=== PATIENT | female | born 1930 | race Asian ===

== ENCOUNTER 2016-12-09 12:29 | Inpatient (IN) | payer MEDICARE, OTHER ==
[~2016-12-09] VITALS: Ht 165.1 cm; Wt 63.6 kg
[~2016-12-09 12:29] MED LIST: ASPI81TA3 PO; AZIT250T4 PO; HYDR473S47 PO; PANT40TA4 PO; SYMB80120 INHALATION
[2016-12-09] MEDS ORDERED: ALBUTEROL 0.5% (NEB) 2.5 MG/0.5 ML AMP NEB STA (13:39)
[2016-12-09] MEDS ORDERED: IPRATROPIUM (NEB) 0.5 MG/2.5 ML AMP NEB STA (13:39)
[2016-12-09] MEDS ORDERED: METHYLPREDNISOLONE 125 MG INJ IV STA (13:39)
[2016-12-09] MEDS ORDERED: PANT20TA3 PO (14:17)
[2016-12-09] MEDS ORDERED: GUAI-637 PO (14:18)
[2016-12-09] MEDS ORDERED: ALBU18HF INHALATION (14:18)
[2016-12-09] MEDS ORDERED: ADV25050 INHALATION (14:18)
[2016-12-09] MEDS ORDERED: CLOT10TR6 MM (14:18)
--- NOTE | 2016-12-09 14:28 | RADRPT ---
PROCEDURE: XR Chest. CLINICAL INDICATION: Asthma TECHNIQUE: AP Portable chest. COMPARISON: 12/15/2015 chest x-ray and chest CT 12/15/2015 FINDINGS: The soft tissues and bones are remarkable for thoracic spondylosis and bilateral acromioclavicular o steoarthropathy. Bilateral upper lobe volume loss is present with chronic right upper lobe intersti tial disease and bronchiectasis previously described. Right middle lobe atelectasis or consolidatio n is present. Lesser degree of involvement in the left upper and lower lobes are noted. The mediast inum and heart are remarkable for mild cardiomegaly and atherosclerotic vascular disease. No pneumo thorax or pleural effusions are present. IMPRESSION: 1. Acute right middle lobe discoid atelectasis or infiltrate superimposed on chronic interstitial d isease as described above. 2. Mild cardiomegaly and atherosclerotic vascular disease 3. 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 RPTAT: HDC .Leah Lundberg MD, MD Date Time Electronically viewed and signed by .Leah Lundberg MD, on 12/09/2016 14:28 .C/
[2016-12-09] MEDS ORDERED: CEFTRIAXONE 1 GM/50 ML (PMX) 50 ML IVPB STA (14:34)
[2016-12-09] MEDS ORDERED: AZITHROMYCIN 250 MG TAB PO STA (14:34)
[2016-12-09 15:04] LABS: BASOPHILS % 0.6 % (0.0-2.0); EOSINOPHILS # 0.3 10^3/ul (0.0-0.5); EOSINOPHILS % 5.2 % (0.0-7.0); HEMATOCRIT 42.1 % (37.0-47.0); HEMOGLOBIN 14.1 g/dl (12.0-16.0); LYMPHOCYTES # 2.3 10^3/ul (0.8-2.9); LYMPHOCYTES % 38.2 % (15.0-51.0); MEAN CORPUSCULAR HEMOGLOBIN 30.3 pg (29.0-33.0); MEAN CORPUSCULAR HGB CONC 33.4 g/dl (32.0-37.0); MEAN CORPUSCULAR VOLUME 90.8 fl (82.0-101.0); MEAN PLATELET VOLUME 6.9 fl (7.4-10.4); MONOCYTE # 0.5 10^3/ul (0.3-0.9); MONOCYTES % 8.7 % (0.0-11.0); NEUTROPHIL # 2.8 10^3/ul (1.6-7.5); NEUTROPHILS % 47.3 % (39.0-77.0); PLATELET COUNT 406 10^3/UL (140-440); RED BLOOD COUNT 4.64 10^6/ul (4.20-5.40); UNCORRECTED WBC 5.9 10^3/ul (4.8-10.8); WHITE BLOOD COUNT 5.9 10^3/ul (4.8-10.8)
[2016-12-09 15:05] LABS: CONDITION 1
[2016-12-09 15:16] LABS: POTASSIUM 3.3 mmol/L (3.5-5.1)
[2016-12-09 15:19] LABS: CREATININE 0.89 mg/dl (0.44-1.00)
[2016-12-09 15:20] LABS: CALCIUM 9.1 mg/dl (8.4-10.2)
--- NOTE | 2016-12-09 15:39 | ERA ---
ER Documentation Chief Complaint Date/Time DATE: 12/09/16 TIME: 15:37 Chief Complaint cough, sob, box HPI This is an 86-year-old female who has had a cough for nearly a week. The cough is getting worse over the past 2 or 3 days. Patient is coughing up some occasional mild productive sputum and having no fever no shortness of breath no dyspnea on exertion no nausea vomiting no sore throat but does have been a runny nose no orthopnea. The daughter brought her here because of concern she could have pneumonia ROS All systems reviewed and are negative except as per history of present illness. Medications Home Meds Active Scripts Budesonide-Formoterol Fumarate* (Symbicort*) 80-4.5 Inha, 2 PUFFS INHALATION BID , #1 EACH Prov:ALTAF CANTU MD 12/15/15 Azithromycin* (Azithromycin*) 250 Mg Tablet, 250 MG PO DAILY, #4 TAB Prov:ALTAF CANTU MD 12/15/15 Hydrocodone/Homatropine Mbr* (Hycodan* Liq) 5 Ml Syrup, 5 ML PO q6h Y for COUGH , #60 ML Prov:ALTAF CANTU MD 12/15/15 Reported Medications Guaifenesin* (Robitussin*) 100 Mg/5 Ml Syrup, 400 MG PO Q6H Y for COUGH, ML 12/09/16 Clotrimazole* (Clotrimazole*) 10 Mg Dawna, 10 MG MM 5 TIMES DAILY, TAB 12/09/16 Salmeterol Xinaf/Fluticasone* (Advair*) 250-50 Diskus Inhaler, 1 INH INHALATION BID, #1 INHALER 12/09/16 Albuterol Sulfate* (Ventolin HFA*) 18 Gm Hfa.aer.ad, 2 PUFF INHALATION Q6H, #1 INHALER 12/09/16 Pantoprazole* (Pantoprazole*) 20 Mg Tablet.dr, 20 MG PO DAILY, TAB 12/09/16 Aspirin* (Aspirin* Chew) 81 Mg Tab.chew, 81 MG PO DAILY, TAB.CHEW 12/15/15 Discontinued Reported Medications Pantoprazole* (Pantoprazole*) 40 Mg Tablet.dr, 40 MG PO DAILY, TAB 12/15/15 Allergies Allergies: Coded Allergies: Sulfa (Sulfonamide Antibiotics) (Verified Allergy, Severe, RASH, 10/30/14) PMhx/Soc History of Surgery: Yes (eye surgery) Anesthesia Reaction: No Hx 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 Disorder: No Hx Respiratory Disorders: Yes (bronchitis, ASTHMA) Hx Cardiac Disorders: No Hx Psychiatric Problems: No Hx Miscellaneous Medical Probl: Yes (GERD) Hx Alcohol Use: No Hx Substance Use: No Hx Tobacco Use: No Smoking Status: Never smoker FmHx Family History: No coronary disease Physical Exam Vitals Vital Signs Date Time Temp Pulse Resp B/P Pulse Ox O2 Delivery O2 Flow Rate FiO2 12/09/16 15:12 98.6 98 20 138/77 91 Room Air 12/09/16 15:02 Nasal Cannula 12/09/16 13:58 80 17 97 21 12/09/16 12:36 98.4 76 20 144/78 97 Physical Exam Const: Well-developed, well-nourished Head: Atraumatic, normocephalic Eyes: Normal Conjunctiva, PERRLA, EOMI, normal sclera, no nystagmus ENT: Normal External Ears, Nose and Mouth, moist mucus membranes. Neck: Full range of motion. No meningismus, no lymphadenopathy. Resp: Diffuse mild scattered rhonchi no increased work of breathing s Cardio: Regular rate and rhythm, no murmurs, S1 S2 present Abd: Soft, non tender x 4, non distended. Normal bowel sounds, no guarding or rebound, no pulsitile abdominal masses or bruits Skin: No petechiae or rashes, no ecchymosis , no maculopapular rash Back: No midline or flank tenderness Ext: No cyanosis, or edema, FROM x 4, normal inspection, neurovascularly intact x 4 Neur: Awake and alert, STR 5/5 x 4, sensation intact x 4, no focal findings, cerebellum intact Psych: Normal Mood and Affect Result Diagram: 12/09/16 1450 12/09/16 1450 Results 24 hrs Laboratory Tests Test 12/09/16 14:50 Anion Gap 15 Basophils # 0.010^3/ul Basophils % 0.6% Blood Morphology Comment Blood Urea Nitrogen 11mg/dl Calcium Level 9.1mg/dl Carbon Dioxide Level 26mmol/L Chloride Level 106mmol/L Creatinine 0.89mg/dl Eosinophils # 0.310^3/ul Eosinophils % 5.2% Glucose Level 125mg/dl Hematocrit 42.1% Hemoglobin 14.1g/dl Lymphocytes # 2.310^3/ul Lymphocytes % 38.2% Mean Corpuscular Hemoglobin 30.3pg Mean Corpuscular Hemoglobin Concent 33.4g/dl Mean Corpuscular Volume 90.8fl Mean Platelet Volume 6.9fl Monocytes # 0.510^3/ul Monocytes % 8.7% Neutrophils # 2.810^3/ul Neutrophils % 47.3% Nucleated Red Blood Cells # 0.010^3/ul Nucleated Red Blood Cells % 0.0/100WBC Platelet Count 90638^3/UL Potassium Level 3.3mmol/L Red Blood Count 4.6410^6/ul Red Cell Distribution Width 14.0% Sodium Level 144mmol/L White Blood Count 5.910^3/ul Current Medications Medications (Trade) Dose Ordered Sig/Brigido Route PRN Reason Start Time Stop Time Status Last Admin Dose Admin Albuterol (Proventil 0.5% (Neb)) 7.5 mg ONCE STAT NEB 12/09/16 13:39 12/09/16 13:41 DC 12/09/16 14:14 Ipratropium [place] (Atrovent 0.02% (Neb)) 1.5 mg ONCE STAT NEB 12/09/16 13:39 12/09/16 13:41 DC 12/09/16 14:13 Methylprednisolone Sodium Succinate (Solu-Medrol) 125 mg ONCE STAT IV 12/09/16 13:39 12/09/16 13:41 DC 12/09/16 14:46 Azithromycin 500 mg 500 mg ONCE STAT PO 12/09/16 14:34 12/09/16 14:39 DC 12/09/16 15:10 Ceftriaxone Sodium (Rocephin) 50 ml @ 100 mls/hr ONCE STAT IVPB 12/09/16 14:34 12/09/16 15:03 DC 12/09/16 15:11 Procedures/MDM PROCEDURE: XR Chest. CLINICAL INDICATION: Asthma TECHNIQUE: AP Portable chest. COMPARISON: 12/15/2015 chest x-ray and chest CT 12/15/2015 FINDINGS: The soft tissues and bones are remarkable for thoracic spondylosis and bilateral acromioclavicular osteoarthropathy. Bilateral upper lobe volume loss is present with chronic right upper lobe interstitial disease and bronchiectasis previously described. Right middle lobe atelectasis or consolidation is present. Lesser degree of involvement in the left upper and lower lobes are noted. The mediastinum and heart are remarkable for mild cardiomegaly and atherosclerotic vascular disease. No pneumothorax or pleural effusions are present. IMPRESSION: 1. Acute right middle lobe discoid atelectasis or infiltrate superimposed on chronic interstitial disease as described above. 2. Mild cardiomegaly and atherosclerotic vascular disease 3. 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 RPTAT: HDC .Leah Lundberg MD, MD Date Time Electronically viewed and signed by .Leah Lundberg MD, MD on 12/09/2016 14: 28 .C/ CC: JAN TATE DO Patient received some nebulizer treatments and Solu-Medrol. She also received intravenous antibiotic therapy. We will admit the patient for right pneumonia. Departure Diagnosis: Primary Impression: Right middle lobe pneumonia Qualified Code: J18.9 - Pneumonia of right middle lobe due to infectious organism Condition: Stable JAN TATE DO Dec 09, 2016 15:39
[2016-12-09] MEDS ORDERED: SOD CHLORIDE 0.9% 1,000 ML IV SCH (15:40)
[2016-12-09] MEDS ORDERED: ONDANSETRON 4 MG INJ IV PRN ×2 (16:00)
[2016-12-09] MEDS ORDERED: ACETAMINOPHEN 325 MG TAB PO PRN (16:00)
[2016-12-09] MEDS ORDERED: ALBUTEROL/IPRATROPIUM (NEB) 3 ML AMP HHN PRN (16:00)
[2016-12-09 16:07] LABS: ADD UMIC YES; URINE BILIRUBIN (Dip) NEGATIVE (NEGATIVE); URINE BLOOD (Dip) TRACE (NEGATIVE); URINE COLOR LT. YELLOW (YELLOW); URINE GLUCOSE (Dip) NEGATIVE (NEGATIVE); URINE KETONES (Dip) NEGATIVE (NEGATIVE); URINE LEUKOCYTE ESTERASE (Dip) NEGATIVE (NEGATIVE); URINE NITRITE (Dip) NEGATIVE (NEGATIVE); URINE TOTAL PROTEIN (Dip) NEGATIVE (NEGATIVE); URINE UROBILINOGEN (Dip) 0.2 E.U./dL (0.1-1.0)
[2016-12-09 16:21] LABS: SQUAMOUS EPITHELIAL CELL,UR RARE; URINE RBCS 0-2 /HPF (0)
[2016-12-09] MEDS: LEVOFLOXACIN 500MG/D5W (PMX) 100 ML IVPB SCH (16:40)
[2016-12-09 16:45] VITALS: TEMP 99
[2016-12-09] MEDS: ALBUTEROL/IPRATROPIUM (NEB) 3 ML AMP HHN SCH ×2 (17:31→21:23)
[2016-12-09 20:00] VITALS: BP 134/85; PULSE 86; RESP 16
[2016-12-09] MEDS: POTASSIUM CHLORIDE (SR) 20 MEQ TAB PO SCH ×2 (20:00→23:01)
[2016-12-09] MEDS: SALMETEROL/FLUTICASONE 250/50 INHA INH SCH (22:59)
[2016-12-09 23:11] LABS: CREATINE KINASE 503 IU/L (23-200)
[2016-12-09 23:20] LABS: CK-MB 2.99 ng/ml (0.0-2.4)
[2016-12-09 23:24] LABS: TROPONIN-I < 0.012 ng/ml (0.00-0.12)
[2016-12-10] MEDS: ALBUTEROL/IPRATROPIUM (NEB) 3 ML AMP HHN SCH ×6 (00:26→20:45)
[2016-12-10 05:46] LABS: BASOPHILS % 0.2 % (0.0-2.0); EOSINOPHILS % 0.2 % (0.0-7.0); HEMATOCRIT 38.7 % (37.0-47.0); HEMOGLOBIN 13.1 g/dl (12.0-16.0); LYMPHOCYTES # 0.6 10^3/ul (0.8-2.9); LYMPHOCYTES % 14.9 % (15.0-51.0); MEAN CORPUSCULAR HEMOGLOBIN 30.9 pg (29.0-33.0); MEAN CORPUSCULAR VOLUME 90.9 fl (82.0-101.0); MEAN PLATELET VOLUME 6.9 fl (7.4-10.4); MONOCYTE # 0.1 10^3/ul (0.3-0.9); MONOCYTES % 2.3 % (0.0-11.0); NEUTROPHIL # 3.3 10^3/ul (1.6-7.5); NEUTROPHILS % 82.4 % (39.0-77.0); PLATELET COUNT 397 10^3/UL (140-440); RED BLOOD COUNT 4.25 10^6/ul (4.20-5.40); RED CELL DISTRIBUTION WIDTH 13.9 % (11.5-14.5)
[2016-12-10 05:54] LABS: CONDITION 1
[2016-12-10 06:05] LABS: ALBUMIN 3.7 g/dl (3.3-4.9); POTASSIUM 4.7 mmol/L (3.5-5.1)
[2016-12-10 06:08] LABS: CREATININE 0.68 mg/dl (0.44-1.00); PHOSPHORUS 3.3 mg/dl (2.5-4.9)
[2016-12-10] MEDS: PANTOPRAZOLE SODIUM 20 MG TABEC PO SCH (06:08)
[2016-12-10 06:09] LABS: CALCIUM 8.7 mg/dl (8.4-10.2); CHOL/HDL RATIO 4.4 RATIO; MAGNESIUM 2.1 mg/dl (1.7-2.5)
[2016-12-10 06:24] LABS: CK-MB 2.87 ng/ml (0.0-2.4)
[2016-12-10 06:28] LABS: CREATINE KINASE 503 IU/L (23-200)
[2016-12-10 06:41] LABS: TROPONIN-I < 0.010 ng/ml (0.00-0.12)
[2016-12-10 07:39] VITALS: BP 132/71; RESP 20
[2016-12-10] MEDS: SALMETEROL/FLUTICASONE 250/50 INHA INH SCH ×2 (10:27→21:17)
[2016-12-10] MEDS: GUAIFENESIN 20 MG/ML 5ML CUP PO PRN (10:28)
[2016-12-10] MEDS: ASPIRIN 81 MG TAB PO SCH (10:28)
[2016-12-10] MEDS: HYDROCODONE/HOMATROPINE 5ML CUP PO PRN ×2 (12:39→21:12)
--- NOTE | 2016-12-10 12:45 | HP ---
Date/Time of Note Date/Time of Note DATE: 12/10/16 TIME: 12:32 Assessment/Plan VTE Prophylaxis VTE Prophylaxis Intervention: LMWH Lines/Catheters IV Catheter Type (from Nrs): Peripheral IV Urinary Cath still in place: No Assessment/Plan Assessment/Plan 1. Community acquired pneumonia, likely gram positive bacterial, on levaquin, test to r/o influenza 2. COPD, acute exacerbation, neb, steroid, levaquin 3. 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 No fever or chills. ROS Constitutional: no complaints, No chills, No diaphoresis, No disoriented, No fatigue, No febrile, No improved, No nausea, No poor po, No weight change Eyes: no complaints, No discharge, No pain, No redness, No visual change ENT: no complaints, No bleeding, No congestion, No discharge, No dysphagia, No pain, No sore throat Respiratory: cough, shortness of breath, wheezing, No pleuritic pain, No sputum Cardiovascular: No chest pain, No edema, No lightheadedness, No orthopenea, No palpitations, No paroxysmal nocturnal dyspnea Gastrointestinal: no complaints, No blood, No constipation, No decreased appetite, No diarrhea, No flatus, No nausea, No pain, No passing stool, No vomiting Genitourinary: No bleeding, No discharge, No dysuria, No flank pain, No hematuria Musculoskeletal: No back pain, No bone/joint pain, No neck pain, No restricted range of motion, No swelling Skin: No bruising, No erythema, No laceration, No pruritis, No rash, No skin lesions Neurologic: No confusion, No dizziness, No focal-weakness, No headache, No seizure, No syncope Endocrine: No dry skin, No polydypsia, No polyuria, No temp intolerance, No weight change Lymphatic: No adenopathy, No lymphadema, No tender nodes Psychological: No anxiety, No confusion, No depression, No suicidal PMH/Family/Social Past Medical History Medical History: other (COPD) Past Surgical History Past Surgical Hx: no surgical history Family History Significant Family History: no pertinent family hx Social History Alcohol Use: none Smoking Status: Never smoker Drug Use: none Exam/Review of Systems Vital Signs Vitals Vital Signs Date Time Temp Pulse Resp B/P Pulse Ox O2 Delivery O2 Flow Rate FiO2 12/10/16 10:22 99 20 99 21 12/10/16 07:39 97.7 132/71 12/09/16 20:00 Room Air Intake and Output 12/09/16 12/09/16 12/10/16 15:00 23:00 07:00 Intake Total 700 ml Balance 700 ml Exam Constitutional: alert, oriented, well developed Psych: nl mood/affect, no complaints Head: atraumatic, normocephalic Eyes: EOMI, PERRL, nl conjunctiva, nl lids, nl sclera ENMT: mucosa pink and moist, nl external ears & nose, nl lips & teeth, nl nasal mucosa & septum Neck: non-tender, supple Respiratory: clear to auscultation, congested cough, normal air movement Cardiovascular: nl pulses, regular rate and rhythm Gastrointestinal: nl liver, spleen, non-tender, soft Musculoskeletal: nl extremities to inspection, nl gait and stance Extremities: normal pulses, No calf tenderness, No clubbing, No cyanosis, No edema, No palpable cord, No pitting pedal edema, No tenderness 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: 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 SWEEPER 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-XII 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, nl mental status, nl speech, nl strength Skin: nl turgor, rash or lesions Lymph: nl lymph nodes Labs Result Diagram: 12/10/16 0040 12/10/16 0440 Medications Medications Current Medications Levofloxacin/ Dextrose (Levaquin 500mg/ D5W 100 ml (Pmx)) 100 ml @ 100 mls/hr Q48H IVPB ; Start 12/09/16 at 16:40 Ondansetron HCl (Zofran Inj) 4 mg Q4H PRN IV NAUSEA AND/OR VOMITING; Start at 16:00 Aspirin (Aspirin) 81 mg DAILY PO Last administered on 12/10/16 10:28; Admin Dose 81 MG; Start 12/10/16 at 09:00 Guaifenesin (Robitussin Liquid Cup) 400 mg Q6H PRN PO COUGH Last administered on 12/10/16 10:28; Admin Dose 400 MG; Start 12/09/16 at 16:00 Hydrocodone Bit/ Homatropine Methylb (Hycodan Liquid) 5 ml q6h PRN PO COUGH; Start 12/09/16 at 16:00 Pantoprazole Sodium (Protonix) 20 mg DAILY@06 PO Last administered on 06:08; Admin Dose 20 MG; Start 12/10/16 at 06:00 Salmeterol Xinafoate/ Fluticasone (Advair 250/50 Diskus) 1 inh BID INH Last administered on 12/10/16 10:27; Admin Dose 1 INH; Start 12/09/16 at 21:00 MUNIR RIZO MD Dec 10, 2016 12:43
[2016-12-10] MEDS: METHYLPREDNISOLONE 40 MG INJ IV SCH ×2 (14:05→21:06)
[2016-12-10] MEDS: ENOXAPARIN 40 MG/0.4 ML SYG SC SCH (14:07)
--- NOTE | 2016-12-10 18:10 | RADRPT ---
Echocardiogram Report Patient Name: KARMEN AMBROSE Gender: Female Date: 1930 Study Date: 10-Dec-2016 General Pediatrician: Ana Rosa Kim [facility] Location: 627 Ref. Physician: ANUJA LUNA Quality: Good Procedures: Transthoracic echocardiogram with complete 2D, M-Mode, and doppler examination. Indications: Chest Pain. 2D/M Mode Doppler Measurement Value Normal Ranges Measurement Value Normal Ranges LVIDd 2D 4.3 3.5 - 5.6 cm AV Peak Jose M 1.5 m/sec LVIDs 2D 2.0 2.1 - 4.1 cm AV Peak PG 9.5 mmHg LVPWd 2D 0.9 0.6 - 1.1 cm LVOT Peak Jose M 1.1 m/sec IVSd 2D 1.0 0.6 - 1.1 cm LVOT Peak PG 4.9 mmHg AoR Diam 2D 2.9 2.0 - 3.7 cm MV E Peak Jose M 1.0 m/sec EDV 2D 80.9 cm3 MV A Peak Jose M 1.1 m/sec ESV 2D 7.8 cm3 MV E/A 0.9 LA Dimen 2D 2.6 2.3 - 4.0 cm MV Decel Time 135 msec MV Decel [place] 7 MV E/A 0.9 TR Peak Jose M 2.7 m/sec TR Peak PG 28.2 mmHg RVSP 31.0 mmHg Findings Left Ventricle: Normal left ventricular systolic function. Normal left ventricular cavity size. Normal left ventricular wall thickness. Ejection fraction is visually estimated at 60 %. Tissue Doppler/Mitral Doppler indices are consistent with impaired relaxation (Stage I diastolic dysfunction). Right Ventricle: Normal right ventricular size. Normal right ventricular systolic function. Left Atrium: The left atrium is normal in size. Right Atrium: The right atrium is normal in size. Mitral Valve: Normal appearance and function of the mitral valve with trace physiologic regurgitation. Aortic Valve: Normal appearance of the aortic valve. No significant aortic stenosis or insufficiency. Tricuspid Valve: Normal appearance of the tricuspid valve. Estimated peak PA systolic pressure 31 mmHg. There is mild tricuspid regurgitation. Pericardium: Normal pericardium with no significant pericardial effusion. Aorta: Normal aortic root. IVC: Normal size and normal respiratory collapse consistent with normal right atrial pressure. Conclusions 1.Normal left ventricular systolic function. Normal left ventricular cavity size. Normal left ventricular wall thickness. Ejection fraction is visually estimated at 60 %. Tissue Doppler/Mitral Doppler indices are consistent with impaired relaxation (Stage I diastolic dysfunction). 2.Normal appearance and function of the mitral valve with trace physiologic regurgitation. 3.Normal appearance of the tricuspid valve. Estimated peak PA systolic pressure 31 mmHg. There is mild tricuspid regurgitation. Electronically Signed By: Nirmal Muir 10-Dec-2016 18:09:27 -0800 Patient Name: KARMEN AMBROSE Study Date: 10-Dec-2016 [id number]
[2016-12-10 19:54] VITALS: BP 127/62; RESP 18
[2016-12-11] MEDS: ALBUTEROL/IPRATROPIUM (NEB) 3 ML AMP HHN SCH ×4 (00:29→12:12)
[2016-12-11] MEDS: METHYLPREDNISOLONE 40 MG INJ IV SCH ×3 (05:56→21:47)
[2016-12-11] MEDS: PANTOPRAZOLE SODIUM 20 MG TABEC PO SCH (06:25)
[2016-12-11 06:29] LABS: POTASSIUM 4.6 mmol/L (3.5-5.1)
[2016-12-11 06:31] LABS: CREATININE 0.73 mg/dl (0.44-1.00)
[2016-12-11 06:33] LABS: CALCIUM 9.2 mg/dl (8.4-10.2)
[2016-12-11 06:46] LABS: ALBUMIN 3.9 g/dl (3.3-4.9); POTASSIUM 4.7 mmol/L (3.5-5.1)
[2016-12-11 06:49] LABS: CREATININE 0.72 mg/dl (0.44-1.00)
[2016-12-11 06:50] LABS: CALCIUM 9.4 mg/dl (8.4-10.2)
[2016-12-11 07:08] LABS: BASOPHILS % 0.1 % (0.0-2.0); EOSINOPHILS % 0.1 % (0.0-7.0); HEMATOCRIT 39.6 % (37.0-47.0); HEMOGLOBIN 13.3 g/dl (12.0-16.0); LYMPHOCYTES # 0.7 10^3/ul (0.8-2.9); LYMPHOCYTES % 7.7 % (15.0-51.0); MEAN CORPUSCULAR HEMOGLOBIN 30.6 pg (29.0-33.0); MEAN CORPUSCULAR HGB CONC 33.6 g/dl (32.0-37.0); MEAN CORPUSCULAR VOLUME 91.2 fl (82.0-101.0); MEAN PLATELET VOLUME 7.1 fl (7.4-10.4); MONOCYTE # 0.1 10^3/ul (0.3-0.9); MONOCYTES % 1.3 % (0.0-11.0); NEUTROPHIL # 8.5 10^3/ul (1.6-7.5); NEUTROPHILS % 90.8 % (39.0-77.0); PLATELET COUNT 399 10^3/UL (140-440); RED BLOOD COUNT 4.34 10^6/ul (4.20-5.40); RED CELL DISTRIBUTION WIDTH 14.1 % (11.5-14.5); UNCORRECTED WBC 9.4 10^3/ul (4.8-10.8); WHITE BLOOD COUNT 9.4 10^3/ul (4.8-10.8)
[2016-12-11 07:19] LABS: CONDITION 1; LH ANALYZER COMMENTS 1
[2016-12-11 07:34] VITALS: BP 157/80; RESP 22
[2016-12-11] MEDS: ASPIRIN 81 MG TAB PO SCH (09:04)
[2016-12-11] MEDS: SALMETEROL/FLUTICASONE 250/50 INHA INH SCH ×2 (09:04→21:48)
[2016-12-11] MEDS: ENOXAPARIN 40 MG/0.4 ML SYG SC SCH (09:37)
[2016-12-11] MEDS ORDERED: ACETAMINOPHEN 325 MG TAB PO PRN (12:00)
--- NOTE | 2016-12-11 13:25 | PN ---
Date/Time of Note Date/Time of Note DATE: 12/11/16 TIME: 13:23 Assessment/Plan VTE Prophylaxis VTE Prophylaxis Intervention: LMWH Lines/Catheters IV Catheter Type (from Nrs): Saline Lock Urinary Cath still in place: No Assessment/Plan Assessment/Plan 1. Community acquired pneumonia, likely gram positive bacterial, on levaquin, improving 2. COPD, acute exacerbation, neb, steroid, levaquin, decrease steroid 3. GERD, protonix Subjective 24 Hr Interval Summary Free Text/Dictation feels much better with less shortness of breath, still cough but less Exam/Review of Systems Vital Signs Vitals Vital Signs Date Time Temp Pulse Resp B/P Pulse Ox O2 Delivery O2 Flow Rate FiO2 12/11/16 12:12 86 18 96 21 12/11/16 07:34 98.1 157/80 12/09/16 20:00 Room Air Intake and Output 12/10/16 12/10/16 12/11/16 15:00 23:00 07:00 Intake Total 1320 ml 480 ml Balance 1320 ml 480 ml Exam Constitutional: alert, oriented, well developed Psych: nl mood/affect, no complaints Head: atraumatic, normocephalic Eyes: EOMI, PERRL, nl conjunctiva, nl lids, nl sclera ENMT: mucosa pink and moist, nl external ears & nose, nl lips & teeth, nl nasal mucosa & septum Neck: non-tender, supple Respiratory: crackles/rales (on right back) Cardiovascular: nl pulses, regular rate and rhythm Gastrointestinal: nl liver, spleen, non-tender, soft, No ascites, No bowel sounds, No distended, No firm, No hepatomegaly, No mass , No rebound or guarding, No splenomegaly, No surgical scars, No tender Musculoskeletal: nl extremities to inspection Extremities: normal pulses, No calf tenderness, No clubbing, No cyanosis, No edema, No palpable cord, No pitting pedal edema, No tenderness 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: QUILT MAKER II-XII intact, nl mental status, nl speech, nl strength Skin: nl turgor, rash or lesions Lymph: nl lymph nodes Results Result Diagram: 12/11/16 0550 12/11/16 0550 Results 24 hrs Laboratory Tests Test 12/11/16 05:50 Albumin 3.9 Anion Gap 19 H Basophils # 0.0 Basophils % 0.1 Blood Morphology Comment Blood Urea Nitrogen 18 Calcium Level 9.2 Carbon Dioxide Level 24 Chloride Level 105 Creatinine 0.73 Eosinophils # 0.0 Eosinophils % 0.1 Glucose Level 138 Hematocrit 39.6 Hemoglobin 13.3 Lymphocytes # 0.7 L Lymphocytes % 7.7 L Mean Corpuscular Hemoglobin 30.6 Mean Corpuscular Hemoglobin Concent 33.6 Mean Corpuscular Volume 91.2 Mean Platelet Volume 7.1 L Monocytes # 0.1 L Monocytes % 1.3 Neutrophils # 8.5 H Neutrophils % 90.8 H Nucleated Red Blood Cells # 0.0 Nucleated Red Blood Cells % 0.0 Phosphorus Level 4.0 Platelet Count 399 Potassium Level 4.6 Red Blood Count 4.34 Red Cell Distribution Width 14.1 Sodium Level 143 White Blood Count 9.4 # Medications Medications Current Medications Levofloxacin/ Dextrose (Levaquin 500mg/ D5W 100 ml (Pmx)) 100 ml @ 100 mls/hr Q48H IVPB ; Start 12/09/16 at 16:40 Ondansetron HCl (Zofran Inj) 4 mg Q4H PRN IV NAUSEA AND/OR VOMITING; Start at 16:00 Aspirin (Aspirin) 81 mg DAILY PO Last administered on 12/11/16 09:04; Admin Dose 81 MG; Start 12/10/16 at 09:00 Guaifenesin (Robitussin Liquid Cup) 400 mg Q6H PRN PO COUGH Last administered on 12/10/16 10:28; Admin Dose 400 MG; Start 12/09/16 at 16:00 Hydrocodone Bit/ Homatropine Methylb (Hycodan Liquid) 5 ml q6h PRN PO COUGH Last administered on 12/10/16 21:12; Admin Dose 5 ML; Start 12/09/16 at 16:00 Pantoprazole Sodium (Protonix) 20 mg DAILY@06 PO Last administered on 06:25; Admin Dose 20 MG; Start 12/10/16 at 06:00 Salmeterol Xinafoate/ Fluticasone (Advair 250/50 Diskus) 1 inh BID INH Last administered on 12/11/16 09:04; Admin Dose 1 INH; Start 12/09/16 at 21:00 Enoxaparin Sodium (Lovenox) 40 mg DAILY SC Last administered on 12/11/16 09:37 ; Admin Dose 40 MG; Start 12/10/16 at 13:00 Methylprednisolone Sodium Succinate (Solu-Medrol) 40 mg Q8 IV Last administered on 12/11/16 05:56; Admin Dose 40 MG; Start 12/10/16 at 14:00 Acetaminophen (Tylenol Tab) 650 mg Q6H PRN PO PAIN AND OR ELEVATED TEMP Last administered on 12/11/16 12:13; Admin Dose 650 MG; Start 12/11/16 at 12:00 MUNIR RIZO MD Dec 11, 2016 13:25
[2016-12-11] MEDS: GUAIFENESIN 20 MG/ML 5ML CUP PO PRN (14:12)
--- NOTE | 2016-12-11 17:14 | HP ---
DATE OF ADMISSION: 12/09/2016 PRESENTING COMPLAINT: Cough, shortness of breath, headache. HISTORY OF PRESENT ILLNESS: This is an 86-year-old female who was brought to the emergency room by her family, she resides at home, with concerns for cough that has been going on for about a week. T he patient's cough is associated with sputum production that has mostly been white. The patient has also been having associated shortness of breath. The patient has a ____ history of asthma and bron chitis and uses inhalers at home including Advair as well as albuterol. There have also been cold-l kings symptoms including runny nose and headache, but there has been no fever. PAST MEDICAL HISTORY: Positive for bronchitis and asthma. HOME MEDICATIONS: The patient takes: 1. Hydrocodone. 2. Symbicort. 3. Guaifenesin. 4. Albuterol. 5. Protonix. 6. Aspirin. ALLERGIES: THE PATIENT IS ALLERGIC TO SULFA DRUGS WITH A RASH. PAST SURGICAL HISTORY: Positive for eye surgery. REVIEW OF SYSTEMS: A 12-point review of system was done. Pertinent findings are as noted in HPI. SOCIAL HISTORY: The patient has never smoked. No history of alcohol abuse or illicit drug use. PHYSICAL EXAMINATION: VITAL SIGNS: Temperature 98.6, pulse 98, respirations 20, blood pressure 138/77, saturations were 9 1% on room air, but with oxygen on by nasal cannula at 2 liters per minute to 97%. GENERAL: Elderly lady. HEENT: Head was normocephalic. Pupils were equal, round, and reactive. Mucous membranes are sligh tly dry. Posterior pharynx without exudate. NECK: Supple without JVD. CHEST: She has reduced air entry bilaterally, which was worse on the right, with rhonchi as well as crackles in the right lung base. ABDOMEN: Soft, nontender, nondistended. CARDIOVASCULAR: Heart sounds S1 and S2 without added sounds or murmurs. EXTREMITIES: Negative for edema. SKIN: Without rash or jaundice. LABORATORY VALUES: CBC was reviewed. She had a normal white count. Hemoglobin was 14 and platelet count was 406. On her chemistry, she had a mild hypokalemia with potassium of 3.3. The rest of he r indices are unremarkable. In the emergency room, she was given 1 dose of steroids as well as herbie thing treatment and was started on ceftriaxone and azithromycin ____ for pneumonia. Chest x-ray was done and it showed active right mid lobe discoid atelectasis or infiltrate. The ____, mild cardiom egaly and atherosclerotic ____ spondylosis and bilateral acromioclavicular ____. I reviewed the CT scan she had done on her last and it was done 12/15/2015. At that time, she had right upper lobe br onchiectasis and chronic interstitial disease with focal areas of ____ parenchymal disease in the ri ght middle lobe. ____ interstitial disease in the left upper and lower lobes of a lesser degree and mild atherosclerosis vascular disease and borderline cardiomegaly. ASSESSMENT: An 86-year-old female who presents with cough, shortness of breath ____. 1. Right-sided pneumonia, which is community-acquired, superimposed on chronic lung disease (asthma /bronchitis/chronic interstitial lung disease). The patient has failed outpatient therapy and azith romycin as well. 2. Acute respiratory insufficiency secondary to right-sided pneumonia, which is community-acquired, superimposed on chronic lung disease (asthma/bronchitis/chronic interstitial lung disease). 3. ____ gastroesophageal reflux disease. 4. Clinical ____. PLAN: ____ stable at this time. Begin ____ antibiotics with Levaquin, put her also on scheduled br onchodilators and inhaled steroid therapy. At this time, I will hold off on ____ therapy, but she s eems to have responded well to bronchodilator therapy. We will have a low threshold to start if ind icated. For prophylaxis, she will be continued on Lovenox as well as continue on her home PPI. Sup portive care will include antipyretics, antiemetics, and pain medication. We will also obtain blood and sputum cultures and also send for urinalysis and ensure that there is no occult urinary tract i nfection concurrently. I have reviewed this plan with the patient and her family and I answered que stions. Dictated By: ANUJA LUNA MD BA/NTS Conf#: [id number] DID#: [id number]
[2016-12-11] MEDS: LEVOFLOXACIN 500MG/D5W (PMX) 100 ML IVPB SCH (17:28)
[2016-12-11 19:20] VITALS: BP 149/79; RESP 18
[2016-12-12] MEDS: PANTOPRAZOLE SODIUM 20 MG TABEC PO SCH (06:19)
[2016-12-12] MEDS: METHYLPREDNISOLONE 40 MG INJ IV SCH (06:19)
[2016-12-12 06:34] LABS: BASOPHILS % 0.2 % (0.0-2.0); EOSINOPHILS % 0.1 % (0.0-7.0); HEMATOCRIT 38.8 % (37.0-47.0); HEMOGLOBIN 13.1 g/dl (12.0-16.0); LYMPHOCYTES # 0.8 10^3/ul (0.8-2.9); LYMPHOCYTES % 7.4 % (15.0-51.0); MEAN CORPUSCULAR HEMOGLOBIN 30.5 pg (29.0-33.0); MEAN CORPUSCULAR HGB CONC 33.7 g/dl (32.0-37.0); MEAN CORPUSCULAR VOLUME 90.5 fl (82.0-101.0); MEAN PLATELET VOLUME 7.1 fl (7.4-10.4); MONOCYTE # 0.3 10^3/ul (0.3-0.9); MONOCYTES % 2.5 % (0.0-11.0); NEUTROPHIL # 9.7 10^3/ul (1.6-7.5); NEUTROPHILS % 89.8 % (39.0-77.0); PLATELET COUNT 382 10^3/UL (140-440); RED BLOOD COUNT 4.28 10^6/ul (4.20-5.40); UNCORRECTED WBC 10.8 10^3/ul (4.8-10.8); WHITE BLOOD COUNT 10.8 10^3/ul (4.8-10.8)
[2016-12-12 06:35] LABS: ALBUMIN 3.9 g/dl (3.3-4.9); POTASSIUM 4.8 mmol/L (3.5-5.1)
[2016-12-12 06:37] LABS: CREATININE 0.79 mg/dl (0.44-1.00)
[2016-12-12 06:38] LABS: CALCIUM 9.2 mg/dl (8.4-10.2); PHOSPHORUS 4.3 mg/dl (2.5-4.9)
[2016-12-12 06:44] LABS: CONDITION 1
[2016-12-12 07:40] VITALS: BP 142/68; RESP 19
[2016-12-12] MEDS: ASPIRIN 81 MG TAB PO SCH (08:56)
[2016-12-12] MEDS: SALMETEROL/FLUTICASONE 250/50 INHA INH SCH (08:56)
[2016-12-12] MEDS: ENOXAPARIN 40 MG/0.4 ML SYG SC SCH (09:25)
[2016-12-12] MEDS: GUAIFENESIN 20 MG/ML 5ML CUP PO PRN (11:59)
[2016-12-12] MEDS ORDERED: LEVO500T72 PO (13:31)
[2016-12-12] MEDS ORDERED: PRED20TA PO (13:31)
--- NOTE | 2016-12-12 13:36 | DS ---
Date/Time of Note Date/Time of Note DATE: 12/12/16 TIME: 13:32 Discharge Summary Admission/Discharge Info Admit Date/Time Dec 09, 2016 at 15:41 Discharge Date/Time Final Diagnosis 1. Community acquired pneumonia, likely gram positive bacterial, improving on levaquin 2. COPD, acute exacerbation, stable, neb, steroid, levaquin 3. 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 No fever or chills. Hospital Course CXR indicates right side pulmonary infiltrates. Negative for influenza. She is treated with levaquin for pneumonia, nebulizer and steroid for COPD exacerbation. Symptoms improved. She is discharged with tapering dosage of prednisone and levaquin. Home Meds Active Scripts Prednisone* (Prednisone*) 20 Mg Tab, 20 MG PO DAILY for 3 Days, TAB Prov:MUNIR RIZO MD 12/12/16 Levofloxacin* (Levaquin*) 500 Mg Tablet, 500 MG PO DAILY for 7 Days, TAB Prov:MUNIR RIZO MD 12/12/16 Budesonide-Formoterol Fumarate* (Symbicort*) 80-4.5 Inha, 2 PUFFS INHALATION BID , #1 EACH Prov:ALTAF CANTU MD 12/15/15 Hydrocodone/Homatropine Mbr* (Hycodan* Liq) 5 Ml Syrup, 5 ML PO q6h Y for COUGH , #60 ML Prov:ALTAF CANTU MD 12/15/15 Reported Medications Guaifenesin* (Robitussin*) 100 Mg/5 Ml Syrup, 400 MG PO Q6H Y for COUGH, ML 12/09/16 Clotrimazole* (Clotrimazole*) 10 Mg Dawna, 10 MG MM 5 TIMES DAILY, TAB 12/09/16 Salmeterol Xinaf/Fluticasone* (Advair*) 250-50 Diskus Inhaler, 1 INH INHALATION BID, #1 INHALER 12/09/16 Albuterol Sulfate* (Ventolin HFA*) 18 Gm Hfa.aer.ad, 2 PUFF INHALATION Q6H, #1 INHALER 12/09/16 Pantoprazole* (Pantoprazole*) 20 Mg Tablet.dr, 20 MG PO DAILY, TAB 12/09/16 Aspirin* (Aspirin* Chew) 81 Mg Tab.chew, 81 MG PO DAILY, TAB.CHEW 12/15/15 Discontinued Reported Medications Pantoprazole* (Pantoprazole*) 40 Mg Tablet.dr, 40 MG PO DAILY, TAB 12/15/15 Discontinued Scripts Azithromycin* (Azithromycin*) 250 Mg Tablet, 250 MG PO DAILY, #4 TAB Prov:ALTAF CANTU MD 12/15/15 Follow-up Plan PCP 2 weeks Pending Labs Laboratory Tests Test 12/12/16 05:54 Albumin 3.9g/dl (3.3-4.9) Anion Gap 17 (8-16) Basophils # 0.010^3/ul (0.0-0.1) Basophils % 0.2% (0.0-2.0) Blood Morphology Comment Blood Urea Nitrogen 22mg/dl (7-20) Calcium Level 9.2mg/dl (8.4-10.2) Carbon Dioxide Level 25mmol/L (21-31) Chloride Level 104mmol/L (97-110) Creatinine 0.79mg/dl (0.44-1.00) Eosinophils # 0.010^3/ul (0.0-0.5) Eosinophils % 0.1% (0.0-7.0) Glucose Level 124mg/dl (70-220) Hematocrit 38.8% (37.0-47.0) Hemoglobin 13.1g/dl (12.0-16.0) Lymphocytes # 0.810^3/ul (0.8-2.9) Lymphocytes % 7.4% (15.0-51.0) Mean Corpuscular Hemoglobin 30.5pg (29.0-33.0) Mean Corpuscular Hemoglobin Concent 33.7g/dl (32.0-37.0) Mean Corpuscular Volume 90.5fl (82.0-101.0) Mean Platelet Volume 7.1fl (7.4-10.4) Monocytes # 0.310^3/ul (0.3-0.9) Monocytes % 2.5% (0.0-11.0) Neutrophils # 9.710^3/ul (1.6-7.5) Neutrophils % 89.8% (39.0-77.0) Nucleated Red Blood Cells # 0.010^3/ul (0.0-0.0) Nucleated Red Blood Cells % 0.0/100WBC (0.0-0.0) Phosphorus Level 4.3mg/dl (2.5-4.9) Platelet Count 99753^3/UL (140-440) Potassium Level 4.8mmol/L (3.5-5.1) Red Blood Count 4.2810^6/ul (4.20-5.40) Red Cell Distribution Width 14.0% (11.5-14.5) Sodium Level 141mmol/L (135-144) White Blood Count 10.810^3/ul (4.8-10.8) MUNIR RIZO MD Dec 12, 2016 13:36
[2016-12-13] MEDS ORDERED: LEVOFLOXACIN 500 MG TAB PO SCH (18:00)
== END 2016-12-12 15:40 | disposition home or self-care (01) | DRG 194 ==
LOC: E/R 12:29 → MS2 15:41
PROVIDERS: ADMIT Family Medicine; ATTEND Family Medicine
DX: J18.9 Pneumonia, unspecified organism (principal); J44.1 Chronic obstructive pulmonary disease with (acute) exacerbation; K21.9 Gastro-esophageal reflux disease without esophagitis
CPT/HCPCS: 36415; 71010; 80048; 80061; 80069; 81001; 81003; 82550; 82553; 83735; 84484; 85025; 87040; 87400; 93306; 94640; 94664; 96374; 96375; J0696; J1650; J1956; J2920; J2930; J7030

== ENCOUNTER → 2017-05-10 | Outpatient (CLI) | payer MEDICARE, OTHER ==
[~2017-05-10] MED LIST changes: +ADV25050 INHALATION; +ALBU18HF INHALATION; -AZIT250T4 PO; +CLOT10TR6 MM; +GUAI-637 PO; +LEVO500T72 PO; +PANT20TA3 PO; -PANT40TA4 PO; +PRED20TA PO
--- NOTE | 2017-05-10 13:58 | RADRPT ---
PROCEDURE: XR Chest. CLINICAL INDICATION: Shortness of breath. TECHNIQUE: Single frontal view. COMPARISON: 12/09/2016. FINDINGS: There is mild right upper lobe air space disease consistent with atelectasis or pneumonia, worse chirag n seen previously. There is right perihilar air space disease, also worse than seen previously. Th e left lung is clear to The heart is mildly enlarged. There is calcification in the aorta consistent with atherosclerosis. There is no pleural effusion. There is no pneumothorax. IMPRESSION: 1. Worse appearance of the right upper lobe and right perihilar region. Correlation with CT scan o f the chest should be considered. 2. Cardiomegaly and atherosclerosis. RPTAT: QQ .Todd Molina MD, MD Date Time Electronically viewed and signed by .Todd Molina MD, MD on 05/10/2017 13:58 .R/
== END | disposition home or self-care (01) ==
LOC: RAD 09:34
PROVIDERS: ATTEND Internal Medicine Cardiovascular Disease
DX: J18.9 Pneumonia, unspecified organism (principal)
CPT/HCPCS: 71010

== ENCOUNTER → 2017-06-21 | Outpatient (CLI) | payer MEDICARE, OTHER ==
--- NOTE | 2017-06-21 14:43 | RADRPT ---
PROCEDURE: XR Chest. CLINICAL INDICATION: Shortness of breath. TECHNIQUE: Single frontal view. COMPARISON: 05/10/2017. FINDINGS: There is mild right upper lobe air space disease consistent with atelectasis or pneumonia, unchanged . Right perihilar patchy air space disease is unchanged. There is left basilar atelectasis. The l eft lung is otherwise clear. The heart is mildly enlarged. Calcification is present in the aorta consistent with atherosclerosis . There is no pleural effusion. There is no pneumothorax. IMPRESSION: 1. No change from 05/10/2017. RPTAT: QQ .Todd Molina MD, MD Date Time Electronically viewed and signed by .Todd Molina MD, on 06/21/2017 14:42 .R/
== END | disposition home or self-care (01) ==
LOC: RAD 11:10
PROVIDERS: ATTEND Internal Medicine Pulmonary Disease
DX: R06.02 Shortness of breath (principal)
CPT/HCPCS: 71010

== ENCOUNTER 2017-07-25 03:51 | Inpatient (IN) | payer MEDICARE, OTHER ==
[~2017-07-25] VITALS: Ht 147.3 cm; Wt 57.5 kg
[2017-07-25] VITALS (9 sets, daily range): BP systolic 107–156; BP diastolic 68–83; PULSE 60–70; RESP 18–20; TEMP 98.1; Ht 147.3 cm; Wt 57.5 kg
[2017-07-25] MEDS ORDERED: NITROGLYCERIN 2% 1 GM OINT PKT TD STA (04:37)
[2017-07-25] MEDS ORDERED: ASPIRIN 325 MG TAB PO STA (04:37)
--- NOTE | 2017-07-25 04:43 | ERA ---
ER Documentation Chief Complaint Date/Time DATE: 07/25/17 TIME: 04:40 Chief Complaint L arm pain radiating to the back & L ante chest x 5days HPI This is an 87-year-old female who has had chest pain for 4-5 days. She says she has had left upper chest pain radiates to the right left arm left arm and left trapezius left back. The pain can occur with movement and also occurs at rest. The last episode was a few hours ago. She says when the pain comes it is a tight pain sensation in the last 10 minutes and resolves. She does not have any shortness of breath palpitations nausea pain in the jaw. Patient says sometimes the pain will start when she is moving around sometimes it occurs at rest. Patient has history of hypertension high cholesterol but her daughter says that she does not any medication for these disease processes and that everything is controlled ROS All systems reviewed and are negative except as per history of present illness. Medications Home Meds Active Scripts Prednisone* (Prednisone*) 20 Mg Tab, 20 MG PO DAILY for 3 Days, TAB Prov:MUNIR RIZO MD 12/12/16 Reported Medications Clotrimazole* (Clotrimazole*) 10 Mg Dawna, 10 MG MM 5 TIMES DAILY, TAB 12/09/16 Salmeterol Xinaf/Fluticasone* (Advair*) 250-50 Diskus Inhaler, 1 INH INHALATION BID, #1 INHALER 12/09/16 Albuterol Sulfate* (Ventolin HFA*) 18 Gm Hfa.aer.ad, 2 PUFF INHALATION Q6H, #1 INHALER 12/09/16 Pantoprazole* (Pantoprazole*) 20 Mg Tablet.dr, 20 MG PO DAILY, TAB 12/09/16 Aspirin* (Aspirin* Chew) 81 Mg Tab.chew, 81 MG PO DAILY, TAB.CHEW 12/15/15 Discontinued Reported Medications Guaifenesin* (Robitussin*) 100 Mg/5 Ml Syrup, 400 MG PO Q6H Y for COUGH, ML 12/09/16 Discontinued Scripts Levofloxacin* (Levaquin*) 500 Mg Tablet, 500 MG PO DAILY for 7 Days, TAB Prov:MUNIR RIZO MD 12/12/16 Budesonide-Formoterol Fumarate* (Symbicort*) 80-4.5 Inha, 2 PUFFS INHALATION BID , #1 EACH Prov:ALTAF CANTU MD 12/15/15 Hydrocodone/Homatropine Mbr* (Hycodan* Liq) 5 Ml Syrup, 5 ML PO q6h Y for COUGH , #60 ML Prov:ALTAF CANTU MD 12/15/15 Allergies Allergies: Coded Allergies: Sulfa (Sulfonamide Antibiotics) (Unverified Allergy, Severe, RASH, 07/25/17 ) PMhx/Soc History of Surgery: No (t duct opening 20 years ago) Anesthesia Reaction: No Hx 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 Disorder: No Hx Respiratory Disorders: No Hx Cardiac Disorders: No Hx Psychiatric Problems: No Hx Miscellaneous Medical Probl: No Hx Alcohol Use: No Hx Substance Use: No Hx Tobacco Use: No FmHx Family History: No coronary disease Physical Exam Vitals Vital Signs Date Time Temp Pulse Resp B/P Pulse Ox O2 Delivery O2 Flow Rate FiO2 07/25/17 05:51 66 17 159/89 94 Room Air 07/25/17 04:53 78 96 Room Air 07/25/17 04:04 96.7 76 20 178/95 97 Physical Exam Const: Well-developed, well-nourished Head: Atraumatic, normocephalic Eyes: Normal Conjunctiva, PERRLA, EOMI, normal sclera, no nystagmus ENT: Normal External Ears, Nose and Mouth, moist mucus membranes. Neck: Full range of motion. No meningismus, no lymphadenopathy. Resp: Clear to auscultation bilaterally, no wheezing, rhonchi, rales Cardio: Regular rate and rhythm, no murmurs, S1 S2 present Abd: Soft, non tender x 4, non distended. Normal bowel sounds, no guarding or rebound, no pulsitile abdominal masses or bruits Skin: No petechiae or rashes, no ecchymosis , no maculopapular rash Back: No midline or flank tenderness Ext: No cyanosis, or edema, FROM x 4, normal inspection, neurovascularly intact x 4 Neur: Awake and alert, STR 5/5 x 4, sensation intact x 4, no focal findings, cerebellum intact Psych: Normal Mood and Affect Result Diagram: 07/25/178 07/25/178 Results 24 hrs Laboratory Tests Test 07/25/17 04:48 White Blood Count 6.310^3/ul Red Blood Count 4.8010^6/ul Hemoglobin 14.2g/dl Hematocrit 42.6% Mean Corpuscular Volume 88.8fl Mean Corpuscular Hemoglobin 29.6pg Mean Corpuscular Hemoglobin Concent 33.3g/dl Red Cell Distribution Width 13.0% Platelet Count 19750^3/UL Mean Platelet Volume 8.8fl Neutrophils % 55.1% Lymphocytes % 32.2% Monocytes % 7.8% Eosinophils % 3.8% Basophils % 0.6% Nucleated Red Blood Cells % 0.0/100WBC Neutrophils # (Manual) 3.510^3/ul Lymphocytes # 2.010^3/ul Monocytes # 0.510^3/ul Eosinophils # 0.210^3/ul Basophils # 0.010^3/ul Nucleated Red Blood Cells # 0.010^3/ul Prothrombin Time 12.0Sec Prothrombin Time Ratio 0.9 INR International Normalized Ratio 0.89 Activated Partial Thromboplast Time 31.3Sec Sodium Level 146mmol/L Potassium Level 4.0mmol/L Chloride Level 108mmol/L Carbon Dioxide Level 23mmol/L Anion Gap 19 Blood Urea Nitrogen 17mg/dl Creatinine 0.93mg/dl Glucose Level 94mg/dl Calcium Level 9.6mg/dl Total Bilirubin 0.4mg/dl Direct Bilirubin 0.00mg/dl Indirect Bilirubin 0.4mg/dl Aspartate Amino Transf (AST/SGOT) 32IU/L Alanine Aminotransferase (ALT/SGPT) 33IU/L Alkaline Phosphatase 72IU/L Troponin I < 0.012ng/ml B-Type Natriuretic Peptide 116PG/ML Total Protein 7.7g/dl Albumin 4.3g/dl Globulin 3.40g/dl Albumin/Globulin Ratio 1.26 Current Medications Medications (Trade) Dose Ordered Sig/Brigido Route PRN Reason Start Time Stop Time Status Last Admin Dose Admin Aspirin (Aspirin) 325 mg ONCE STAT PO 07/25/17 04:37 07/25/17 04:38 DC 07/25/17 05:47 Nitroglycerin (Nitroglycerin 2% Oint) 1 inch ONCE STAT TD 07/25/17 04:37 07/25/17 04:38 DC 07/25/17 05:48 Ondansetron HCl (Zofran Inj) 4 mg ER BRIDGE PRN IV NAUSEA AND/OR VOMITING 07/25/17 06:00 07/26/17 05:59 Acetaminophen (Tylenol Tab) 650 mg ER BRIDGE PRN PO MILD PAIN/FEVER 07/25/17 06:00 07/26/17 05:59 Procedures/MDM EKG: Rate/Rhythm: Normal Sinus Rhythm,NL intervals QRS, ST, QT: NORMAL NH, QRS, QT] Impression: NORMAL EKG CXR reading pending Patient's symptoms are concerning for cardiac cause will require inpatient workup and continuous monitoring. Further w/u for ischemia, arrhythmia, PE or dissection will be deferred to the inpatient team. Accepting Care Team: Current data and ongoing care discussed. Time: Time of admission Primary Provider: Fanny Consulting: JAYLIN Outstanding Data: none Departure Diagnosis: Primary Impression: Chest pain Qualified Code: R07.9 - Chest pain, unspecified type Condition: Stable JAN TATE DO Jul 25, 2017 04:43
[2017-07-25 05:12] LABS: BASOPHILS % 0.6 % (0.0-2.0); EOSINOPHILS # 0.2 10^3/ul (0.0-0.5); EOSINOPHILS % 3.8 % (0.0-7.0); HEMATOCRIT 42.6 % (37.0-47.0); HEMOGLOBIN 14.2 g/dl (12.0-16.0); LYMPHOCYTES % 32.2 % (15.0-51.0); MEAN CORPUSCULAR HEMOGLOBIN 29.6 pg (29.0-33.0); MEAN CORPUSCULAR HGB CONC 33.3 g/dl (32.0-37.0); MEAN CORPUSCULAR VOLUME 88.8 fl (82.0-101.0); MEAN PLATELET VOLUME 8.8 fl (7.4-10.4); MONOCYTE # 0.5 10^3/ul (0.3-0.9); MONOCYTES % 7.8 % (0.0-11.0); NEUTROPHILS % 55.1 % (39.0-77.0); PLATELET COUNT 365 10^3/UL (140-415); WHITE BLOOD COUNT 6.3 10^3/ul (4.8-10.8)
[2017-07-25 05:30] LABS: ALANINE AMINOTRANSFERASE 33 IU/L (13-69); ALBUMIN 4.3 g/dl (3.3-4.9); ALBUMIN/GLOBULIN RATIO 1.26; ALKALINE PHOSPHATASE 72 IU/L (42-121); ANION GAP 19 (8-16); ASPARTATE AMINO TRANSFERASE 32 IU/L (15-46); BILIRUBIN,INDIRECT 0.4 mg/dl (0-1.1); BILIRUBIN,TOTAL 0.4 mg/dl (0.2-1.3); BLOOD UREA NITROGEN 17 mg/dl (7-20); CALCIUM 9.6 mg/dl (8.4-10.2); CARBON DIOXIDE 23 mmol/L (21-31); CHLORIDE 108 mmol/L (97-110); CREATININE 0.93 mg/dl (0.44-1.00); GLUCOSE 94 mg/dl (70-220); INR 0.89; PT RATIO 0.9; SODIUM 146 mmol/L (135-144); TOTAL PROTEIN 7.7 g/dl (6.1-8.1)
[2017-07-25 05:31] LABS: PARTIAL THROMBOPLASTIN TIME 31.3 Sec (25.0-35.0)
[2017-07-25 05:42] LABS: B-TYPE NATRIURETIC PEPTIDE 116 PG/ML (0-450)
[2017-07-25] MEDS ORDERED: ONDANSETRON 4 MG INJ IV PRN ×2 (06:00→07:30)
[2017-07-25] MEDS ORDERED: ACETAMINOPHEN 325 MG TAB PO PRN (06:00)
[2017-07-25 06:01] LABS: TROPONIN-I < 0.012 ng/ml (0.00-0.12)
--- NOTE | 2017-07-25 06:52 | RADRPT ---
PROCEDURE: CHEST - 1 VIEW CLINICAL INDICATION: 87-year-old female with chest pain. TECHNIQUE: A single frontal AP portable view of the chest was performed. The images were reviewed on a PACS workstation. COMPARISON: Chest x-ray June 21, 2017; CT chest December 15, 2015; chest x-ray October 30, 2014. FINDINGS: The cardiomediastinal silhouette mildly enlarged but without significant interval change. The thorac ic aortic arch is mildly calcified. Chronic lung changes are present. There is evidence for fibrot ic changes and bronchiectasis within the right upper lobe without significant interval change. Ther e are nodular appearing infiltrates within the right mid lung zone measuring 1.9 x 1.7 cm and right lower lung zone measuring 2.2 x 1.6 cm. This corresponds to an area of scarring in the right mid mariaelena ng zone however the right lower lung zone appearance was not present previously. There is an infiltr ate and/or scarring however an underlying mass cannot be excluded. There is no evidence for congest kuldip heart failure. There is no evidence for pneumothorax. The osseous structures are intact. IMPRESSION: 1. Mild cardiomegaly. 2. Calcified thoracic aortic arch. 3. Chronic lung changes. 4. Right upper lobe fibrotic changes and bronchiectasis without interval change. 5. Ovoid nodular density within the right mid lung zone corresponding to atelectasis and scarring o n a CT scan from December 15, 2015. 6. New right lower lung zone nodular density which may represent an area of atelectasis and/or a fo ahmet infiltrate however an underlying mass cannot be totally excluded. Further evaluation with CT im aging is suggested. .Butch Stahl MD, Date Time Electronically viewed and signed by .Butch Stahl MD, on 07/25/2017 06:51 .M/
--- NOTE | 2017-07-25 07:13 | HP ---
Date/Time of Note Date/Time of Note DATE: 07/25/17 TIME: 07:06 Assessment/Plan VTE Prophylaxis VTE Prophylaxis Intervention: LMWH Lines/Catheters IV [facility]from [facility] Saline Lock Assessment/Plan Assessment/Plan 1. Chest pain, rule out ACS -Supplemental oxygen, beta-alonzo, statin, with as needed nitro and morphine -Trend troponin -2D echo and cardiology consult 2. Right lower lung zone nodular density -CT chest for further evaluation 3. Hypertension, BP not at goal -Patient does have a history of hypertension but she is not taking her blood pressure medications at home -We will start antihypertensives and will adjust as needed for better BP control 4. History of dyslipidemia -Again patient does not take any medications -Check fasting lipids -Start statin 5. Chronic interstitial disease and bronchiectasis -Supplemental oxygen -Continue home medication, including bronchodilators, inhaled steroids HPI/ROS Admit Date/Time Admit Date/Time Hx of Present Illness This is an 87-year-old female with a history of hypertension, dyslipidemia, chronic interstitial disease and bronchiectasis who presented to the emergency department complaining of chest pain. Chest pain started about 3 days ago and it is located in the mid chest and slightly left-sided with radiation to both of her arms. Pain is somehow initiated with movement. Reported occasional shortness of breath and dry cough. When presented to the ER, blood pressure was 178/95. Labs shows a sodium of 146 otherwise CBC and a CMP within acceptable range. First troponin is negative and EKG was no ST-T wave abnormalities. Chest x-ray shows new right lower lung zone nodular density, which could be atelectasis versus focal infiltrate versus mass. Also noted on the chest x-ray is right upper lobe fibrotic change and ovoid nodular density corresponding to the CT from 2016. . PMH/Family/Social Past Medical History Medical History: high cholesterol, hypertension, other (Chronic interstitial disease and bronchiectasis) Past Surgical History Past Surgical Hx: no surgical history Social History Alcohol Use: none Smoking Status: Never smoker Drug Use: none Exam/Review of Systems Vital Signs Vitals Vital Signs Date Time Temp Pulse Resp B/P Pulse Ox O2 Delivery O2 Flow Rate FiO2 07/25/17 05:51 66 17 159/89 94 Room Air 07/25/17 04:04 96.7 Exam Constitutional: other (No acute distress) Head: atraumatic, normocephalic Eyes: EOMI, PERRL Neck: supple Respiratory: other (Slight crackles were heard) Cardiovascular: nl pulses, regular rate and rhythm Gastrointestinal: non-tender, soft Extremities: normal pulses Labs Result Diagram: 07/25/178 07/25/17 0448 ANNA VILLALBA MD Jul 25, 2017 07:13
[2017-07-25] MEDS ORDERED: NITROGLYCERIN (SL) 0.4 MG TAB SL PRN (07:30)
[2017-07-25] MEDS ORDERED: NACL 0.9% 3 ML SYG IV SCH (07:30)
[2017-07-25] MEDS ORDERED: hydrALAzine 20 MG INJ IV PRN (07:30)
[2017-07-25] MEDS ORDERED: morphine 2 MG INJ IV PRN (07:30)
[2017-07-25] MEDS ORDERED: ALBUTEROL 18 GM INHALER INH PRN (07:30)
--- NOTE | 2017-07-25 08:32 | RADRPT ---
PROCEDURE: CT Chest without contrast. CLINICAL INDICATION: Chest pain TECHNIQUE: CT scan of the chest without contrast was performed on a multidetector high-resolution CT scanner. Coronal and sagittal reformatted images were obtained from the axial source images. The total exam CTDI equals 8.19 mGy and the total exam DLP equals 271.95 mGy-cm. One or more of the following dose reduction techniques were used: - Automated exposure control. - Adjustment of the mA and/or kV according to patient size. - Use of iterative reconstruction technique. COMPARISON: CT CHEST 12/15/2015 FINDINGS: Dense confluent consolidation is seen in the right upper lobe consistent with possible developing ne oplasm. On the prior CT scan, there was subtle hazy ground-glass infiltration in this region on the prior study with the appearances typical of benign inflammatory changes. However, this is now more dense and more confluent and the possibility of developing neoplasm should be excluded. Further ev aluation is warranted. Severe chronic inflammatory changes and scarring are seen within the upper lung apices bilaterally. 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 Mild scarring and fibrosis is seen along the periphery of the lower lungs bilaterally, stable over time. No other new process is present. There is no pleural effusion or pneumothorax. The central tracheobronchial tree is clear. The mediastinum is unremarkable without evidence for mass or lymphadenopathy. The vascular structur es of the mediastinum are normal in course and caliber, with the exception of significant enlargemen t of the central pulmonary arteries consistent with pulmonary arterial hypertension. This is stable over time. Aortic vascular calcifications and coronary artery calcifications are present. The hea rt size is normal without evidence for pericardial thickening or effusion. The axillary regions, subpectoral regions, and supraclavicular regions are all unremarkable. The adam rrounding chest wall is unremarkable. Imaging obtained through the upper abdomen reveals no acute a bnormality. The surrounding osseous structures are remarkable for degenerative enthesopathy of the spine. No osteolytic or osteoblastic lesion is detected. IMPRESSION: 1. Focal rounded mass-like infiltration in the right upper lung, more dense and more confluent and worse when compared to the previous study. Developing neoplasm is likely and further evaluation wit h tissue diagnosis is warranted. 2. Scarring and fibrosis and chronic postinflammatory changes seen elsewhere scattered throughout t he lungs bilaterally, stable over time. 3. Enlarged central pulmonary arteries consistent with pulmonary arterial hypertension. 4. Scattered benign chronic senescent changes seen elsewhere throughout the study, stable. RPTAT: HMJB .Mike Baeza MD, Date Time Electronically viewed and signed by .Mike Baeza MD, on 07/25/2017 08:31 .B/
[2017-07-25] MEDS: CLOTRIMAZOLE 10 MG TROCHE MM SCH ×5 (09:00→21:10)
[2017-07-25] MEDS: SALMETEROL/FLUTICASONE 250/50 INHA INH SCH ×2 (09:00→21:08)
[2017-07-25] MEDS: ASPIRIN 81 MG TAB PO SCH (10:46)
[2017-07-25] MEDS: AMLODIPINE 10 MG TAB PO SCH (10:47)
[2017-07-25] MEDS: ENOXAPARIN 40 MG/0.4 ML SYG SC SCH (11:29)
[2017-07-25] MEDS: ACETAMINOPHEN 325 MG TAB PO PRN (16:38)
[2017-07-25 16:40] LABS: CREATINE KINASE 55 IU/L (23-200)
[2017-07-25 16:53] LABS: CK-MB 1.16 ng/ml (0.0-2.4); TROPONIN-I < 0.012 ng/ml (0.00-0.12)
--- NOTE | 2017-07-25 23:00 | RADRPT ---
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 Physician: ANNA VILLALBA Quality: Adequate Procedures: Transthoracic echocardiogram with complete 2D, M-Mode, and doppler examination. Indications: Chest Pain. 2D/M Mode Doppler Measurement Value Normal Ranges Measurement Value Normal Ranges LVIDd 2D 4.5 3.5 - 5.6 cm AV Peak Jose M 1.2 m/sec LVIDs 2D 3.1 2.1 - 4.1 cm AV Peak PG 5.8 mmHg LVPWd 2D 1.1 0.6 - 1.1 cm LVOT Peak Jose M 0.8 m/sec IVSd 2D 1.2 0.6 - 1.1 cm LVOT Peak PG 2.8 mmHg AoR Diam 2D 2.9 2.0 - 3.7 cm MV E Peak Jose M 0.6 m/sec EDV 2D 94.0 cm3 MV A Peak Jose M 0.9 m/sec ESV 2D 28.4 cm3 MV E/A 0.6 LA Dimen 2D 3.2 2.3 - 4.0 cm MV Decel Time 291 msec MV Decel [place] 2 MV E/A 0.6 TR Peak Jose M 3.2 m/sec TR Peak PG 42.2 mmHg RVSP 45.0 mmHg Findings Left Ventricle: Normal left ventricular systolic function. Normal left ventricular cavity size. Left ventricular wall thickness upper limits of normal. Ejection fraction is visually estimated at 60 %. Tissue Doppler/Mitral Doppler indices are consistent with impaired relaxation (Stage I diastolic dysfunction). Right Ventricle: Normal right ventricular size. Normal right ventricular systolic function. Left Atrium: The left atrium is normal in size. Right Atrium: The right atrium is normal in size. Mitral Valve: Mild mitral leaflet calcification. Mild mitral annular calcification. Trace mitral regurgitation. Aortic Valve: Aortic sclerosis without stenosis. Trace aortic valve regurgitation. Tricuspid Valve: Normal appearance of the tricuspid valve. Estimated peak PA systolic pressure 45 mmHg. There is mild tricuspid regurgitation. Pulmonic Valve: Pulmonic valve not well visualized. There is mild to moderate pulmonic regurgitation. Pericardium: Normal pericardium with no significant pericardial effusion. Aorta: Normal aortic root. IVC: Normal size and normal respiratory collapse consistent with normal right atrial pressure. Conclusions 1.Normal left ventricular systolic function. Normal left ventricular cavity size. Left ventricular wall thickness upper limits of normal. Ejection fraction is visually estimated at 60 %. Tissue Doppler/Mitral Doppler indices are consistent with impaired relaxation (Stage I diastolic dysfunction). 2.Mild mitral leaflet calcification. Mild mitral annular calcification. Trace mitral regurgitation. 3.Aortic sclerosis without stenosis. Trace aortic valve regurgitation. 4.Normal appearance of the tricuspid valve. Estimated peak PA systolic pressure 45 mmHg. There is mild tricuspid regurgitation. 5.Pulmonic valve not well visualized. There is mild to moderate pulmonic regurgitation. Electronically Signed By: Nirmal Muir 25-Jul-2017 22:58:52 -0700 Patient Name: KARMEN AMBROSE Study Date: 25-Jul-2017 [id number]
[2017-07-26] VITALS (8 sets, daily range): BP systolic 98–135; BP diastolic 59–77; PULSE 57–74; RESP 17–20
[2017-07-26] MEDS: ACETAMINOPHEN 325 MG TAB PO PRN (03:07)
[2017-07-26] MEDS ORDERED: PANTOPRAZOLE (EC) 40 MG TAB PO SCH (06:00)
--- NOTE | 2017-07-26 06:56 | CONS ---
DATE OF ADMISSION: 07/25/2017 DATE OF CONSULTATION: 07/25/2017 REASON FOR CONSULTATION: Chest pain. Assess acute coronary syndrome. REFERRING PHYSICIAN: Dr. Stoddard, from the hospitalist service. HISTORY OF PRESENT ILLNESS: Ms. Cintron is a very pleasant 87- year-old female with a history of chronic interstitial lung disease, dyslipidemia, hypertension, not currently on medication, who initially presented with complaints of back pain that radiates to her chest, with subsequent left-sided chest pain, worse with movement. Upon arrival in emergency department, afebrile, blood pressure 178/95, pulse 76, respiratory rate 20, satting 97 percent. Generally, the patient was complaining of chest pain. LABORATORY: White count 6.3, hemoglobin 14.2, platelet count 365. Sodium 146, potassium 4.0, creatinine 0.9, BUN 17. Troponin negative. BNP 116. INR 0.89. Patient underwent a chest CT, revealing focal rounded mass-like infiltration, right upper lung, worse than previous study, scarring and fibrosis and chronic postinflammatory changes seen elsewhere, and large size of pulmonary arteries. Had a chest x- ray that revealed mild cardiomegaly, chronic lung changes, right upper lobe fibrotic changes and bronchiectasis, without interval change. Ovoid nodular density within the right mid lung zone corresponding to atelectasis seen on a CT scan. New right lung zone nodular density. Patient's electrocardiogram revealed normal sinus rhythm at a rate of 79, normal axis, anterior T-wave inversions. Patient subsequently has been admitted to the floor and once admitted to the floor, continued to have intermittent chest pain. PAST MEDICAL HISTORY: As above in HPI. MEDICATION: Currently in the hospital: 1. Protonix 40 mg daily. 2. Aspirin 81 mg daily. 3. Lovenox 40 mg subcu daily. 4. Advair. 5. Norvasc 10 mg daily. 6. Zofran p.r.n. 7. p.r.n. 8. Albuterol p.r.n. 9. Morphine p.r.n. 10. Hydralazine p.r.n. ALLERGIES: SULFA. SOCIAL HISTORY: No tobacco, EtOH or illicit drug use. FAMILY HISTORY: Negative for sudden cardiac or early CAD. REVIEW OF SYSTEMS: As above in HPI. CONSTITUTIONAL: No fevers, chills. RESPIRATORY: Pulmonary fibrosis, possible lung mass. GASTROINTESTINAL: No vomiting. GENITOURINARY: No hematuria. CARDIOVASCULAR: Chest pain. ENDOCRINE: No documented diabetes mellitus. PHYSICAL EXAMINATION: VITAL SIGNS: Temperature 98, blood pressure 120/71, pulse 67, respiratory rate 18, satting 98 percent. GENERAL: The patient is alert, awake, complaining of intermittent chest pain. NECK: JVP approximately 8-9 cm of water. LUNGS: Fair air movement throughout. HEART: Regular rate and rhythm. Normal S1, S2, 1/6 systolic murmur. Nondisplaced PMI. ABDOMEN: Positive bowel sounds, soft. EXTREMITIES: No edema, 1+ pulses, bilateral posterior pulses. LABORATORY: As above in HPI, with most recently from today second troponin negative, . IMAGING: Indicated above in HPI. No further imaging studies for my review at this time. ECG as in HPI. No further electrocardiograms for my review at this time. IMPRESSION: 1. Chest pain. Assess for acute coronary syndrome with anterior T-wave inversions by electrocardiogram. 2. Abnormal electrocardiogram, with anterior T-wave inversions. Assess for acute coronary syndrome. 3. Hypertension, labile, under improved control, not currently on medication. 4. History of dyslipidemia. 5. Possible lung mass. 6. Pulmonary fibrosis. 7. Hypernatremia. RECOMMENDATIONS: 1. At this time, would maintain patient on telemetry monitoring to follow rhythm and rate. 2. Continue the patient's current aspirin for prevention of cardiovascular events and the patient's Norvasc at this time for control of blood pressure, recently started. 3. Fasting lipid panel for general risk stratification. Initiate lipid medication. 4. Complete rule-out for myocardial infarction to insure the patient's chest pain was not due to an acute coronary syndrome, acute myocardial infarction. Check 2D echo to further assess patient's ejection fraction, wall motion, and major valve abnormalities. 5. Give patient sublingual nitroglycerin for recurrent episodes of chest pain. 6. If patient ruled out for myocardial infarction with total troponins, I believe patient will benefit from further risk stratification. Patient was discussed for cardiac stress test to take place first thing in the morning. 7. Ongoing evaluation of the patient's pulmonary fibrosis and possible lung mass for consultation. I thank you for letting me take part in the care of the patient. I will continue to follow her very closely with you, with recommendations to be made depending on her inpatient hospital clinical course. Dictated By: Nirmal Muir MD /amando/yevgeniy /Document#: [id number] CC: Lucian Stoddard MD;*[facility]*
[2017-07-26 07:03] LABS: BASOPHILS % 0.5 % (0.0-2.0); EOSINOPHILS # 0.1 10^3/ul (0.0-0.5); EOSINOPHILS % 2.2 % (0.0-7.0); HEMATOCRIT 43.7 % (37.0-47.0); HEMOGLOBIN 14.3 g/dl (12.0-16.0); LYMPHOCYTES # 1.5 10^3/ul (0.8-2.9); LYMPHOCYTES % 23.5 % (15.0-51.0); MEAN CORPUSCULAR HEMOGLOBIN 29.2 pg (29.0-33.0); MEAN CORPUSCULAR HGB CONC 32.7 g/dl (32.0-37.0); MEAN CORPUSCULAR VOLUME 89.2 fl (82.0-101.0); MEAN PLATELET VOLUME 9.3 fl (7.4-10.4); MONOCYTE # 0.4 10^3/ul (0.3-0.9); MONOCYTES % 6.5 % (0.0-11.0); NEUTROPHILS % 66.8 % (39.0-77.0); PLATELET COUNT 323 10^3/UL (140-415); RED CELL DISTRIBUTION WIDTH 13.2 % (11.5-14.5); WHITE BLOOD COUNT 6.3 10^3/ul (4.8-10.8)
[2017-07-26 07:32] LABS: ALBUMIN 3.9 g/dl (3.3-4.9); ALBUMIN/GLOBULIN RATIO 1.3; BILIRUBIN,INDIRECT 0.8 mg/dl (0-1.1); BILIRUBIN,TOTAL 0.8 mg/dl (0.2-1.3); CALCIUM 8.7 mg/dl (8.4-10.2); CHOL/HDL RATIO 3.9 RATIO; CREATININE 0.72 mg/dl (0.44-1.00); POTASSIUM 4.2 mmol/L (3.5-5.1); TOTAL PROTEIN 6.9 g/dl (6.1-8.1)
[2017-07-26 08:00] LABS: THYROID STIMULATING HORMONE 1.95 MIU/L (0.465-4.680)
[2017-07-26] MEDS: CLOTRIMAZOLE 10 MG TROCHE MM SCH ×3 (09:00→15:00)
[2017-07-26] MEDS: AMLODIPINE 10 MG TAB PO SCH (10:01)
[2017-07-26] MEDS: SALMETEROL/FLUTICASONE 250/50 INHA INH SCH (10:01)
[2017-07-26] MEDS: ASPIRIN 81 MG TAB PO SCH (10:01)
[2017-07-26] MEDS: ENOXAPARIN 40 MG/0.4 ML SYG SC SCH (10:05)
[2017-07-26] MEDS ORDERED: REGADENOSON 0.4 MG/5 ML SYG ONE (10:10)
--- NOTE | 2017-07-26 11:55 | CONS ---
Date/Time of Note Date/Time of Note DATE: 07/26/17 TIME: 11:51 Assessment/Plan Assessment/Plan Chief Complaint/Hosp Course IMPRESSION: 1. Chest pain. Assess for acute coronary syndrome with anterior T-wave inversions by electrocardiogram.-negative trop x 3/NL EF by echo this admit 2. Abnormal electrocardiogram, with anterior T-wave inversions. Assess for acute coronary syndrome.-no sig changes on serial assessment 3. Hypertension, labile, under improved control, not currently on medication. 4. History of dyslipidemia. 5. Possible lung mass. 6. Pulmonary fibrosis. 7. Hypernatremia.-improved 8. Dyslipidemia-LDL 150 HDL 57 Recc: -Tele -serial ecg's -Continue norvasc/asa -start statin -lexsican stress test today Problems: Consultation Date/Type/Reason Admit Date/Time Jul 25, 2017 at 05:46 Initial Consult Date 07/25/2017 Type of Consultation: cardiology Reason for Consultation chest pain Referring Provider: ANNA VILLALBA MD Exam/Review of Systems Vital Signs Vitals Vital Signs Date Time Temp Pulse Resp B/P Pulse Ox O2 Delivery O2 Flow Rate FiO2 07/26/17 08:06 57 07/26/17 07:22 98.2 17 135/77 94 07/25/17 07:00 Room Air Intake and Output 07/25/17 07/25/17 07/26/17 15:00 23:00 07:00 Intake Total 550 ml Balance 550 ml Exam Review of Systems: CONSTITUTIONAL: No fevers, chills. PULMONARY: No sob CARDIOVASCULAR: No chest pain/palpitations GASTROINTESTINAL: No nausea/vomiting. GENITOURINARY: No hematuria/dysuria. MUSCULOSKELETAL: No myagias/arthalgias. PSYCHIATRIC: The patient denies depression. NEUROLOGIC: No weakness Constitutional: alert, oriented Psych: no complaints Head: normocephalic ENMT: mucosa pink and moist Neck: jvd (8-9 cm water), supple Respiratory: clear to auscultation Cardiovascular: regular rate and rhythm Gastrointestinal: non-tender, soft Musculoskeletal: muscle tone (normal) Extremities: edema (none) 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: other (No focal deficits) Results Result Diagram: 07/26/17 0630 07/26/17 0630 Results 24 hrs Laboratory Tests Test 07/25/17 15:25 07/26/17 06:30 Creatine Kinase 55 Creatine Kinase Index 2.1 Creatinine Kinase MB (Mass) 1.16 Troponin I < 0.012 White Blood Count 6.3 Red Blood Count 4.90 Hemoglobin 14.3 Hematocrit 43.7 Mean Corpuscular Volume 89.2 Mean Corpuscular Hemoglobin 29.2 Mean Corpuscular Hemoglobin Concent 32.7 Red Cell Distribution Width 13.2 Platelet Count 323 Mean Platelet Volume 9.3 Neutrophils % 66.8 Lymphocytes % 23.5 Monocytes % 6.5 Eosinophils % 2.2 Basophils % 0.5 Nucleated Red Blood Cells % 0.0 Neutrophils # (Manual) 4.2 Lymphocytes # 1.5 Monocytes # 0.4 Eosinophils # 0.1 Basophils # 0.0 Nucleated Red Blood Cells # 0.0 Sodium Level 140 Potassium Level 4.2 Chloride Level 106 Carbon Dioxide Level 26 Anion Gap 12 # Blood Urea Nitrogen 19 Creatinine 0.72 Glucose Level 90 Hemoglobin A1c 5.9 Calcium Level 8.7 Total Bilirubin 0.8 Direct Bilirubin 0.00 Indirect Bilirubin 0.8 Aspartate Amino Transf (AST/SGOT) 31 Alanine Aminotransferase (ALT/SGPT) 34 Alkaline Phosphatase 66 Total Protein 6.9 Albumin 3.9 Globulin 3.00 Albumin/Globulin Ratio 1.30 Triglycerides Level 99 Cholesterol Level 227 H LDL Cholesterol, Calculated 150 HDL Cholesterol 57 Cholesterol/HDL Ratio 3.9 Thyroid Stimulating Hormone (TSH) 1.950 Medications Medications Current Medications Ondansetron HCl (Zofran Inj) 4 mg Q6H PRN IV NAUSEA AND/OR VOMITING; Start at 07:30 Aspirin (Aspirin) 81 mg DAILY PO Last administered on 07/26/17 10:01; Admin Dose 81 MG; Start 07/25/17 at 09:00 Nitroglycerin (Nitroglycerin (Sl Tab) 0.4 Mg) 1 tab Q5M PRN SL CHEST PAIN; Start 07/25/17 at 07:30 Acetaminophen (Tylenol Tab) 650 mg Q6H PRN PO PAIN LEVEL 1-3 OR FEVER Last administered on 07/26/17 03:07; Admin Dose 650 MG; Start 07/25/17 at 07:30 Morphine Sulfate (morphine) 2 mg Q4H PRN IV PAIN LEVEL 7-10; Start 07/25/17 at 07:30 Enoxaparin Sodium (Lovenox) 40 mg DAILY SC Last administered on 07/26/17 10:05 ; Admin Dose 40 MG; Start 07/25/17 at 09:00 Albuterol (Ventolin Hfa) 2 puff Q6H PRN INH sob; Start 07/25/17 at 07:30 Pantoprazole (Protonix Tab) 40 mg DAILY@06 PO Last administered on 07/26/17 06: 28; Admin Dose 40 MG; Start 07/26/17 at 06:00 Salmeterol Xinafoate/ Fluticasone (Advair 250/50 Diskus) 1 inh BID INH Last administered on 07/26/17 10:01; Admin Dose 1 INH; Start 07/25/17 at 09:00 Amlodipine Besylate (Norvasc) 10 mg DAILY PO Last administered on 07/26/17 10: 01; Admin Dose 10 MG; Start 07/25/17 at 09:00 Hydralazine HCl (Apresoline) 10 mg Q4H PRN IV SBP > 160; Start 07/25/17 at 07: 30 ALEX LITTLEJOHN Jul 26, 2017 11:55
--- NOTE | 2017-07-26 13:14 | CARRPT ---
DATE OF PROCEDURE: 07/26/2017 TYPE OF PROCEDURE: Lexiscan cardiac stress test, electrocardiogram portion. INDICATION: Chest pain. Assess for ischemia. Baseline vital signs on electrocardiogram: Pulse 73, blood pressure 134/78. Electrocardiogram reveals normal sinus rhythm, rate of 75, normal axis, normal intervals, isolated T-wave flattening, diffuse nonspecific ST-T wave abnormalities and low voltage in the limb leads. PROCEDURE: Patient underwent standard Lexiscan infusion protocol for 10 seconds followed by uptake of radiotracer. Patient's test was stopped due to completion of protocol. Maximal achieved blood pressure during test 134 78. Maximum heart rate during test 93. ELECTROCARDIOGRAM FINDINGS: Patient did not develop any new Lexiscan-induced ST changes from baseline abnormalities to document PVCs. SYMPTOMS: Patient had complaints of chest pain during recovery resolved at the completion test. IMPRESSION: 1. No Lexiscan-induced ST or T-wave changes from baseline diagnostic for ischemia. 2. Positive complaints of shortness of chest pain during stress testing, which resolved at the of recovery. 3. No documented premature ventricular contractions during stress test. 4. Report of nuclear images to follow in separate dictation. Dictated By: Nirmal Muir MD /amando/helen /Document#: [id number] ; Dr. Stoddard, hospitalist service
--- NOTE | 2017-07-26 14:10 | RADRPT ---
PROCEDURE: Nuclear medicine myocardial stress and rest scan. CLINICAL INDICATION: Chest pain. TECHNIQUE: The patient was stressed with 0.4 mg IV Lexiscan. 10 mCi technetium 99m Tetrofosmin ( Myoview) was administered rest. 30 mCi technetium 99m Tetrofosmin (Myoview) was administered duri ng stress. Images were obtained and reconstructed in the short axis, horizontal long axis, and vert ical long axis. Gated images were obtained and ejection fraction was calculated. COMPARISON: No prior study is available for comparison. FINDINGS: The stress and rest images demonstrate normal uptake throughout. There is no fixed abnormality or r eversible abnormality. There is no evidence of transient ischemic dilatation. Wall motion is normal. There is normal wall thickening during systole. Ejection fraction at stress is 90%. IMPRESSION: 1. No evidence of stress induced myocardial ischemia. 2. Ejection fraction at stress is 90%. RPTAT: QQ .Todd Molina MD, MD Date Time Electronically viewed and signed by .Todd Molina MD, MD on 07/26/2017 14:10 .R/
--- NOTE | 2017-07-26 15:36 | RADRPT ---
Vent Rate: 64 bpm RR Interval: 0 msec CO Interval: 182 msec QRS Duration: 74 msec QT Interval: 462 msec QTC Interval: 476 msec P-R-T New Era: 38 - -14 - 39 degrees Normal sinus rhythm Possible Anterior infarct , age undetermined Abnormal ECG Electronically Signed By: Kasi Hughes [id number]
--- NOTE | 2017-07-26 15:40 | DS ---
Date/Time of Note Date/Time of Note DATE: 07/26/17 TIME: 15:09 Discharge Summary Admission/Discharge Info Admit Date/Time Jul 25, 2017 at 05:46 Discharge Date/Time Discharge Diagnosis 1. Chest pain, Chest wall pain, negative stress test 2. Right lower lung zone nodular density -CT chest for further evaluation 3. Hypertension, BP not at goal -Patient does have a history of hypertension but she is not taking her blood pressure medications at home -We will start antihypertensives and will adjust as needed for better BP control 4. History of dyslipidemia -Again patient does not take any medications -Check fasting lipids -Start statin 5. Chronic interstitial disease and bronchiectasis -Supplemental oxygen -Continue home medication, including bronchodilators, inhaled steroids HPI/ROS Patient Condition: Stable Procedures [place] [id number] Radiology Main Line: [phone] DIAGNOSTIC IMAGING REPORT Patient: KARMEN AMBROSE : 1930 Age: 87 Sex: F MR #: [id number] DOS: 07/26/17 1100 Ordering MD: ALEX LITTLEJOHN MD Location: [facility] PROCEDURE: Nuclear medicine myocardial stress and rest scan. CLINICAL INDICATION: Chest pain. TECHNIQUE: The patient was stressed with 0.4 mg IV Lexiscan. 10 mCi technetium 99m Tetrofosmin (Myoview) was administered rest. 30 mCi technetium 99m Tetrofosmin (Myoview) was administered during stress. Images were obtained and reconstructed in the short axis, horizontal long axis, and vertical long axis. Gated images were obtained and ejection fraction was calculated. COMPARISON: No prior study is available for comparison. FINDINGS: The stress and rest images demonstrate normal uptake throughout. There is no fixed abnormality or reversible abnormality. There is no evidence of transient ischemic dilatation. Wall motion is normal. There is normal wall thickening during systole. Ejection fraction at stress is 90%. IMPRESSION: 1. No evidence of stress induced myocardial ischemia. 2. Ejection fraction at stress is 90%. RPTAT: QQ .Todd Molina MD, MD Date Time Electronically viewed and signed by .Todd Molina MD, MD on 07/26/2017 14:10 .R/ CC: ALEX LITTLEJOHN PROCEDURE: CT Chest without contrast. CLINICAL INDICATION: Chest pain TECHNIQUE: CT scan of the chest without contrast was performed on a multidetector high-resolution CT scanner. Coronal and sagittal reformatted images were obtained from the axial source images. The total exam CTDI equals 8.19 mGy and the total exam DLP equals 271.95 mGy-cm. One or more of the following dose reduction techniques were used: - Automated exposure control. - Adjustment of the mA and/or kV according to patient size. - Use of iterative reconstruction technique. COMPARISON: CT CHEST 12/15/2015 FINDINGS: Dense confluent consolidation is seen in the right upper lobe consistent with possible developing neoplasm. On the prior CT scan, there was subtle hazy ground-glass infiltration in this region on the prior study with the appearances typical of benign inflammatory changes. However, this is now more dense and more confluent and the possibility of developing neoplasm should be excluded. Further evaluation is warranted. Severe chronic inflammatory changes and scarring are seen within the upper lung apices bilaterally. 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 Mild scarring and fibrosis is seen along the periphery of the lower lungs bilaterally, stable over time. No other new process is present. There is no pleural effusion or pneumothorax. The central tracheobronchial tree is clear. The mediastinum is unremarkable without evidence for mass or lymphadenopathy. The vascular structures of the mediastinum are normal in course and caliber, with the exception of significant enlargement of the central pulmonary arteries consistent with pulmonary arterial hypertension. This is stable over time. Aortic vascular calcifications and coronary artery calcifications are present. The heart size is normal without evidence for pericardial thickening or effusion. The axillary regions, subpectoral regions, and supraclavicular regions are all unremarkable. The surrounding chest wall is unremarkable. Imaging obtained through the upper abdomen reveals no acute abnormality. The surrounding osseous structures are remarkable for degenerative enthesopathy of the spine. No osteolytic or osteoblastic lesion is detected. IMPRESSION: 1. Focal rounded mass-like infiltration in the right upper lung, more dense and more confluent and worse when compared to the previous study. Developing neoplasm is likely and further evaluation with tissue diagnosis is warranted. 2. Scarring and fibrosis and chronic postinflammatory changes seen elsewhere scattered throughout the lungs bilaterally, stable over time. 3. Enlarged central pulmonary arteries consistent with pulmonary arterial hypertension. 4. Scattered benign chronic senescent changes seen elsewhere throughout the study, stable. RPTAT: HMJB .Mike Baeza MD, MD Date Time Electronically viewed and signed by .Mike Baeza MD, MD on 07/25/2017 08:31 .B/ CC: ANNA VILLALBA MD Hx of Present Illness This is an 87-year-old female with a history of hypertension, dyslipidemia, chronic interstitial disease and bronchiectasis who presented to the emergency department complaining of chest pain. Chest pain started about 3 days ago and it is located in the mid chest and slightly left-sided with radiation to both of her arms. Pain is somehow initiated with movement. Reported occasional shortness of breath and dry cough. When presented to the ER, blood pressure was 178/95. Labs shows a sodium of 146 otherwise CBC and a CMP within acceptable range. First troponin is negative and EKG was no ST-T wave abnormalities. Chest x-ray shows new right lower lung zone nodular density, which could be atelectasis versus focal infiltrate versus mass. Also noted on the chest x-ray is right upper lobe fibrotic change and ovoid nodular density corresponding to the CT from 2016. . Hospital Course Stress thallium test is negative. Chest pain is considered chest wall pain. There is a mass-like lesion in RUL of lungs. Discussed with radiologist Dr. Molina , need biopsy. I discussed this with the family who are at bedside, the daughter and son-in-law. The daughter states they are aware of that lesion and she is closely followed by a feed blender who states it could be a scar. I offered biopsy through bronchoscopy or CT-guided needle biopsy, the family declined and prefers to follow up with feed blender outpatient. They are aware of that it could be malignant. Home Meds Active Scripts Prednisone* (Prednisone*) 20 Mg Tab, 20 MG PO DAILY for 3 Days, TAB Prov:MUNIR RIZO MD 12/12/16 Reported Medications Clotrimazole* (Clotrimazole*) 10 Mg Dawna, 10 MG MM 5 TIMES DAILY, TAB 12/09/16 Salmeterol Xinaf/Fluticasone* (Advair*) 250-50 Diskus Inhaler, 1 INH INHALATION BID, #1 INHALER 12/09/16 Albuterol Sulfate* (Ventolin HFA*) 18 Gm Hfa.aer.ad, 2 PUFF INHALATION Q6H, #1 INHALER 12/09/16 Pantoprazole* (Pantoprazole*) 20 Mg Tablet.dr, 20 MG PO DAILY, TAB 12/09/16 Aspirin* (Aspirin* Chew) 81 Mg Tab.chew, 81 MG PO DAILY, TAB.CHEW 12/15/15 Discontinued Reported Medications Guaifenesin* (Robitussin*) 100 Mg/5 Ml Syrup, 400 MG PO Q6H Y for COUGH, ML 12/09/16 Discontinued Scripts Levofloxacin* (Levaquin*) 500 Mg Tablet, 500 MG PO DAILY for 7 Days, TAB Prov:MUNIR RIZO MD 12/12/16 Budesonide-Formoterol Fumarate* (Symbicort*) 80-4.5 Inha, 2 PUFFS INHALATION BID , #1 EACH Prov:ALTAF CANTU MD 12/15/15 Hydrocodone/Homatropine Mbr* (Hycodan* Liq) 5 Ml Syrup, 5 ML PO q6h Y for COUGH , #60 ML Prov:ALTAF CANTU MD 12/15/15 Follow-up Plan PCP in one week pulmonology in one week Primary Care Provider [facility] Pending Labs Laboratory Tests Test 07/25/17 15:25 07/26/17 06:30 Creatine Kinase 55IU/L (23-200) Creatine Kinase Index 2.1 Creatinine Kinase MB (Mass) 1.16ng/ml (0.0-2.4) Troponin I < 0.012ng/ml (0.00-0.12) White Blood Count 6.310^3/ul (4.8-10.8) Red Blood Count 4.9010^6/ul (4.20-5.40) Hemoglobin 14.3g/dl (12.0-16.0) Hematocrit 43.7% (37.0-47.0) Mean Corpuscular Volume 89.2fl (82.0-101.0) Mean Corpuscular Hemoglobin 29.2pg (29.0-33.0) Mean Corpuscular Hemoglobin Concent 32.7g/dl (32.0-37.0) Red Cell Distribution Width 13.2% (11.5-14.5) Platelet Count 57539^3/UL (140-415) Mean Platelet Volume 9.3fl (7.4-10.4) Neutrophils % 66.8% (39.0-77.0) Lymphocytes % 23.5% (15.0-51.0) Monocytes % 6.5% (0.0-11.0) Eosinophils % 2.2% (0.0-7.0) Basophils % 0.5% (0.0-2.0) Nucleated Red Blood Cells % 0.0/100WBC (0.0-0.0) Neutrophils # (Manual) 4.210^3/ul (1.7-7.5) Lymphocytes # 1.510^3/ul (0.8-2.9) Monocytes # 0.410^3/ul (0.3-0.9) Eosinophils # 0.110^3/ul (0.0-0.5) Basophils # 0.010^3/ul (0.0-0.1) Nucleated Red Blood Cells # 0.010^3/ul (0.0-0.0) Sodium Level 140mmol/L (135-144) Potassium Level 4.2mmol/L (3.5-5.1) Chloride Level 106mmol/L (97-110) Carbon Dioxide Level 26mmol/L (21-31) Anion Gap 12 (8-16) Blood Urea Nitrogen 19mg/dl (7-20) Creatinine 0.72mg/dl (0.44-1.00) Glucose Level 90mg/dl (70-220) Hemoglobin A1c 5.9% (0-5.9) Calcium Level 8.7mg/dl (8.4-10.2) Total Bilirubin 0.8mg/dl (0.2-1.3) Direct Bilirubin 0.00mg/dl (0.00-0.20) Indirect Bilirubin 0.8mg/dl (0-1.1) Aspartate Amino Transf (AST/SGOT) 31IU/L (15-46) Alanine Aminotransferase (ALT/SGPT) 34IU/L (13-69) Alkaline Phosphatase 66IU/L (42-121) Total Protein 6.9g/dl (6.1-8.1) Albumin 3.9g/dl (3.3-4.9) Globulin 3.00g/dl (1.3-3.2) Albumin/Globulin Ratio 1.30 Triglycerides Level 99mg/dl (0-149) Cholesterol Level 227mg/dl (100-200) LDL Cholesterol, Calculated 150mg/dl HDL Cholesterol 57mg/dl (33-92) Cholesterol/HDL Ratio 3.9RATIO Thyroid Stimulating Hormone (TSH) 1.950MIU/L (0.465-4.680) MUNIR RIZO MD Jul 26, 2017 15:19
== END 2017-07-26 17:45 | disposition home or self-care (01) | DRG 313 ==
LOC: E/R 03:51 → TEL 05:46
PROVIDERS: ADMIT Internal Medicine; ATTEND Internal Medicine
DX: R07.89 Other chest pain (principal); J84.9 Interstitial pulmonary disease, unspecified; E87.0 Hyperosmolality and hypernatremia; I10 Essential (primary) hypertension; E78.5 Hyperlipidemia, unspecified; J47.9 Bronchiectasis, uncomplicated; Z79.82 Long term (current) use of aspirin
CPT/HCPCS: 36415; 71010; 71250; 78452; 80053; 80061; 82550; 82553; 83036; 83880; 84443; 84484; 85025; 85610; 85730; 93005; 93017; 93306; A9500; A9505; J1650; J2405; J2785

== ENCOUNTER → 2017-09-20 | Outpatient (CLI) | payer MEDICARE, OTHER ==
[~2017-09-20] MED LIST changes: -GUAI-637 PO; -HYDR473S47 PO; -LEVO500T72 PO; -SYMB80120 INHALATION
--- NOTE | 2017-09-21 23:22 | RADRPT ---
PROCEDURE: CT Chest without contrast. CLINICAL INDICATION: Follow-up abnormal CT TECHNIQUE: CT scan of the chest without contrast was performed on a multidetector high-resolution CT scanner. Coronal and sagittal reformatted images were obtained from the axial source images. The total exam CTDI equals 8.79 mGy and the total exam DLP equals 328.24 mGy-cm. One or more the following dose reduction techniques were utilized: Automated exposure control, adjus tment of the mA and / or kV according to patient's size, or use of iterative reconstruction techniqu e. COMPARISON: 07/25/2017 FINDINGS: Atherosclerotic calcification in the thoracoabdominal aorta and great vessels. No enlarged mediastin al lymph nodes or pleural effusion is seen. Calcified lymph nodes in mediastinum consistent with old granulomatous disease. Coronary artery calcification. No adrenal mass is seen. In the right upper l alejandra lobe there is an approximate 2.8 x . 3.7 mixed density solid mass with nodularity suspicious for neoplasm not significantly changed compared to the previous study. Severe chronic appearing interst itial lung fibrotic changes are also apparent in portions of the right upper lobe with moderate inte rstitial fibrotic changes seen elsewhere in the lungs in bilateral lower lobes and left upper lobe w ith scattered linear areas of fibrosis again seen. Mild degenerative changes in thoracic spine. No a drenal mass is seen. IMPRESSION: In the right upper lung lobe there is an approximate 2.8 x . 3.7 mixed density solid mass with nodul arity suspicious for neoplasm not significantly changed compared to the previous study. Severe chron ic appearing interstitial lung fibrotic changes are also apparent in portions of the right upper lob e with moderate interstitial fibrotic changes seen elsewhere in the lungs in bilateral lower lobes a nd left upper lobe with scattered linear areas of fibrosis again seen. Please see above. RPTAT: HJES .Musa Mcgraw MD, MD Date Time Electronically viewed and signed by .Musa Mcgraw MD, MD on 09/21/2017 23:21 .S/
== END | disposition home or self-care (01) ==
LOC: C/S 08:40
PROVIDERS: ATTEND Internal Medicine Pulmonary Disease
DX: R93.8 Abnormal findings on diagnostic imaging of other specified body structures (principal)
CPT/HCPCS: 71250

== ENCOUNTER 2017-11-24 16:53 | Inpatient (IN) | END 2017-11-28 16:30 | disposition home or self-care (01) | DRG 203 ==

== ENCOUNTER 2018-10-23 07:00 | Emergency (ER) | END 2018-10-23 10:05 | disposition home or self-care (01) ==

== ENCOUNTER 2018-11-02 08:21 | Emergency (ER) | END 2018-11-02 13:18 | disposition home or self-care (01) ==

== ENCOUNTER 2018-11-26 15:01 | Inpatient (IN) | payer MEDICARE, OTHER ==
[~2018-11-26] VITALS: Ht 149.9 cm; Wt 50.0 kg
[~2018-11-26 15:01] MED LIST changes: +ASPI-903 PO; -ASPI81TA3 PO; -CLOT10TR6 MM; +HYDR-4011 PO; +IBUP-1561 PO; +LORA-186 PO; -PANT20TA3 PO; -PRED20TA PO
[2018-11-26] MEDS ORDERED: ASPI-903 PO (16:40)
[2018-11-26] MEDS ORDERED: ALBU90AE INHALATION (16:40)
[2018-11-26] MEDS ORDERED: ADV25050 INHALATION (16:41)
[2018-11-26] MEDS ORDERED: FOL8 PO (16:41)
[2018-11-26] MEDS ORDERED: CHOL100062 PO (16:42)
[2018-11-26] MEDS ORDERED: ZINC50TA2 PO (16:44)
[2018-11-26] MEDS ORDERED: HYDR-4011 PO (16:45)
[2018-11-26] MEDS ORDERED: TYL500 PO (16:45)
[2018-11-26] MEDS ORDERED: PANT20TA3 PO (16:46)
--- NOTE | 2018-11-26 17:25 | ERD ---
ER Documentation Chief Complaint Chief Complaint c/p SOB for "a couple of days. Hx: Asthma, Bronchitis HPI 88-year-old female with a history of hypertension and asthma presenting with worsening shortness of breath for "a couple of days". She denies any associated dizziness, abdominal pain, chest pain, fever or chills. She does have a cough which is chronic with white phlegm, unchanged in color and consistency. She has right-sided chest wall and right sided back pain with coughing only. She has shortness of breath that is worse with exertion. No recent travel or surgeries. No history of blood clots. ROS All systems reviewed and are negative except as per history of present illness. Medications Home Meds Reported Medications Pantoprazole* (Pantoprazole*) 20 Mg Tablet.dr, 20 MG PO NEEDED, TAB 11/26/18 Hydrocodone/Acetaminophen ([place] 5-325 Tablet) 1 Each Tablet, 1 EACH PO Q12H, TAB 11/26/18 Acetaminophen* (Tylenol*) 500 Mg Tab, 500 MG PO NEEDED PRN for MILD PAIN LEVEL 1-3, TAB 11/26/18 Zinc (Zinc Chelate) 50 Mg Tablet, 50 MG PO DAILY, TAB 11/26/18 Cholecalciferol* (Vitamin D3*) 1,000 Unit Tablet, 1000 UNIT PO DAILY, TAB 11/26/18 Folic Acid* (Folic Acid*) 0.8 Mg Tablet, 0.8 MG PO DAILY, TAB 11/26/18 Salmeterol Xinaf/Fluticasone* (Advair*) 250-50 Diskus Inhaler, 1 INH INHALATION BID, #1 INHALER 11/26/18 Aspirin* (Aspirin* Chew) 81 Mg Tab.chew, 81 MG PO DAILY, TAB.CHEW 11/26/18 Albuterol Sulfate (Proair Respiclick) 90 Mcg Aer.pow.ba, 2 PUFF INHALATION Q4 PRN for SHORTNESS OF BREATH, #1 BOTTLE 11/26/18 Discontinued Reported Medications Loratadine* (Claritin*) 10 Mg Tablet, 10 MG PO DAILY, TAB 11/24/17 Salmeterol Xinaf/Fluticasone* (Advair*) 250-50 Diskus Inhaler, 1 INH INHALATION BID, #1 INHALER 12/09/16 Albuterol Sulfate* (Ventolin HFA*) 18 Gm Hfa.aer.ad, 2 PUFF INHALATION Q6H, #1 INHALER 12/09/16 Aspirin* (Aspirin* Chew) 81 Mg Tab.chew, 81 MG PO DAILY, TAB.CHEW 12/15/15 Discontinued Scripts Hydrocodone/Acetaminophen ([place] 5-325 Tablet) 1 Each Tablet, 1 TAB PO Q6H PRN for PAIN, #12 TAB Prov:TAMYMOS,NYASTOLOS A. DO 11/02/18 Ibuprofen* (Motrin*) 400 Mg Tab, 400 MG PO Q8, #30 TAB Prov:LEKKOS,APOSTOLOS A. DO 11/02/18 Allergies Allergies: Coded Allergies: Sulfa (Sulfonamide Antibiotics) (Unverified Allergy, Severe, RASH, 11/26/18) PMhx/Soc History of Surgery: Yes (eye surgery 1997) Anesthesia Reaction: No Hx 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 Disorder: No Hx Respiratory Disorders: Yes (Asthma, Bronchitis, Hx of scar on right lung and pneumonia) Hx Cardiac Disorders: No Hx Psychiatric Problems: No Hx Miscellaneous Medical Probl: Yes (See EMR for detail. ) Hx Alcohol Use: No Hx Substance Use: No Hx Tobacco Use: No Smoking Status: Never smoker FmHx Family History: No diabetes Physical Exam Vitals Vital Signs Date Temp Pulse Resp B/P (MAP) Pulse Ox O2 O2 Flow FiO2 Time Delivery Rate 11/26/18 98.4 90 24 156/85 94 Room Air 16:26 (108) 11/26/18 99.6 113 20 153/94 94 15:23 (113) Physical Exam Const: No acute distress, well-appearing, nontoxic Head: Atraumatic Eyes: Normal Conjunctiva ENT: Normal External Ears, Nose and Mouth. Neck: Full range of motion. No meningismus. No JVD Resp: No tachypnea. No retractions. Mild bibasilar crackles Cardio: Regular rate and rhythm, no murmurs Abd: Soft, non tender, non distended. Normal bowel sounds Skin: No petechiae or rashes Back: No midline or flank tenderness Ext: No cyanosis, or edema Neur: Awake and alert Psych: Normal Mood and Affect Result Diagram: 11/26/18 1650 11/26/18 1650 Results 24 hrs Laboratory Tests Test 11/26/18 16:50 White Blood Count 9.4 10^3/ul Red Blood Count 4.52 10^6/ul Hemoglobin 13.5 g/dl Hematocrit 40.6 % Mean Corpuscular Volume 89.8 fl Mean Corpuscular Hemoglobin 29.9 pg Mean Corpuscular Hemoglobin Concent 33.3 g/dl Red Cell Distribution Width 13.2 % Platelet Count 257 10^3/UL Mean Platelet Volume 9.4 fl Immature Granulocytes % 0.700 % Neutrophils % 77.6 % Lymphocytes % 12.5 % Monocytes % 5.7 % Eosinophils % 3.0 % Basophils % 0.5 % Nucleated Red Blood Cells % 0.0 /100WBC Immature Granulocytes # 0.070 10^3/ul Neutrophils # 7.3 10^3/ul Lymphocytes # 1.2 10^3/ul Monocytes # 0.5 10^3/ul Eosinophils # 0.3 10^3/ul Basophils # 0.1 10^3/ul Nucleated Red Blood Cells # 0.0 10^3/ul Sodium Level 143 mmol/L Potassium Level 3.8 mmol/L Chloride Level 104 mmol/L Carbon Dioxide Level 29 mmol/L Anion Gap 10 Blood Urea Nitrogen 9 mg/dl Creatinine 0.65 mg/dl Est Glomerular Filtrat Rate mL/min mL/min Glucose Level 112 mg/dl Calcium Level 9.3 mg/dl Troponin I 0.474 ng/ml B-Type Natriuretic Peptide 1860 PG/ML Current Medications Medications Dose Sig/Brigido Start Time Status Last (Trade) Ordered Route PRN Stop Time Admin Dose Reason Admin Aspirin 162 mg ONCE ONCE 11/26/18 DC 11/26/18 (Aspirin) PO 18:00 11/26/18 17:57 18:01 Ondansetron 4 mg ER BRIDGE 11/26/18 HCl (Zofran PRN IV 18:30 11/27/18 Inj) NAUSEA AND/OR 18:29 VOMITING 650 mg ER BRIDGE 11/26/18 Acetaminophen PRN PO MILD 18:30 11/27/18 (Tylenol PAIN(1-3)OR 18:29 Tab) ELEVATED TEMP Procedures/MDM EMERGENT LABS AND DIAGNOSTIC STUDIES: Lab Results above were reviewed and interpreted by me. CBC: no anemia or evidence of infection BMP: No evidence of electrolyte abnormality, renal failure, hypoglycemia, liver failure, or biliary obstruction Troponin within normal limits, not indicative of cardiac ischemia 12-lead EKG was interpreted by Aleja Rogers MD: Normal Sinus Rhythm with ventricular rate of 89 beats per minute Rightward axis Normal intervals Abnormal R wave progression with anterior Q waves No acute ST or T wave changes suggestive of acute ischemia or STEMI. Radiology Results as interpreted by Radiology below were reviewed by Alyx Rogers MD: Chest x-ray: Right lower lobe atelectasis versus pneumonia Initial Nursing notes reviewed. Previous Medical Records requested via the Electronic Health Record. EMERGENCY DEPARTMENT COURSE / MEDICAL DECISION MAKING: Patient is presenting with worsening shortness of breath with exertion and cough. Vitals are stable. EKG did not show any evidence of acute ischemia but her troponin is elevated as is her BNP. Aspirin was given. Patient will require admission for further workup for acute coronary syndrome. Lower suspicion for pulmonary embolism or pneumonia. Accepting Care Team: Current data and ongoing care discussed. Time: Time of admission Primary Provider: Dr. Richi Van Diagnosis: Primary Impression: NSTEMI (non-ST elevated myocardial infarction) Condition: Serious EMMETT ROGERS MD Nov 26, 2018 17:25
[2018-11-26] MEDS ORDERED: ASPIRIN 81 MG TAB PO ONE (18:00)
[2018-11-26] MEDS ORDERED: ONDANSETRON 4 MG INJ IV PRN (18:30)
[2018-11-26] MEDS ORDERED: ACETAMINOPHEN 325 MG TAB PO PRN (18:30)
[2018-11-26] MEDS ORDERED: ENOXAPARIN 60 MG/0.6 ML SYG SC ONE (19:00)
[2018-11-26] MEDS: BUDESONIDE (NEB) 0.5MG/2ML AMP HHN SCH (20:30)
[2018-11-26] MEDS: ALBUTEROL/IPRATROPIUM (NEB) 3 ML AMP HHN SCH (20:30)
[2018-11-26] MEDS: CEFEPIME 1GM/50 ML (PMX) 50 ML IVPB SCH (21:01)
[2018-11-26 22:50] VITALS: BP 174/91; PULSE 84; RESP 16; Ht 149.9 cm; Wt 50.0 kg
[2018-11-26 22:52] VITALS: PULSE 115
[2018-11-26 23:45] VITALS: BP 190/94; PULSE 85; RESP 16
--- NOTE | 2018-11-26 23:57 | HP ---
Date/Time of Note Date/Time of Note DATE: 11/26/18 TIME: 23:57 Assessment/Plan VTE Prophylaxis Pharmacological prophylaxis: heparin Assessment/Plan Assessment/Plan 1. Asthma exacerbation -Supplemental oxygen, bronchodilators, steroid 2. Positive troponin, possibly type II NSTEMI. But need to rule out ACS -Telemetry monitoring -Supplemental oxygen, aspirin. As needed nitro -Trend troponin -2D echo and cardiology consult 3. Probable pneumonia -Given associated asthma exacerbation, will treat with antibiotic -If symptom worsens, obtain chest CT Result Diagram: 11/26/18 1650 11/26/18 1650 Results 24hrs Laboratory Tests Test 11/26/18 16:50 White Blood Count 9.4 # Red Blood Count 4.52 Hemoglobin 13.5 Hematocrit 40.6 Mean Corpuscular Volume 89.8 Mean Corpuscular Hemoglobin 29.9 Mean Corpuscular Hemoglobin Concent 33.3 Red Cell Distribution Width 13.2 Platelet Count 257 # Mean Platelet Volume 9.4 Immature Granulocytes % 0.700 H Neutrophils % 77.6 H Lymphocytes % 12.5 L Monocytes % 5.7 Eosinophils % 3.0 Basophils % 0.5 Nucleated Red Blood Cells % 0.0 Immature Granulocytes # 0.070 H Neutrophils # 7.3 Lymphocytes # 1.2 Monocytes # 0.5 Eosinophils # 0.3 Basophils # 0.1 Nucleated Red Blood Cells # 0.0 Sodium Level 143 Potassium Level 3.8 Chloride Level 104 Carbon Dioxide Level 29 Anion Gap 10 Blood Urea Nitrogen 9 Creatinine 0.65 Est Glomerular Filtrat Rate mL/min Glucose Level 112 Calcium Level 9.3 Troponin I 0.474 *H B-Type Natriuretic Peptide 1860 H HPI/ROS Admit Date/Time Admit Date/Time Nov 26, 2018 at 18:26 Hx of Present Illness This is an 88-year-old female with a history of asthma who presents the ER comp laining of shortness of breath and cough. Cough has been dry for the most part. Denied chest pain, nausea/vomiting or abdominal pain. When presented to ER, temp was 99.8 and she was tachycardic. Initial troponin 0.474. SBP at one point was as high as 190. Chest x-ray shows right basilar patchy opacity or pneumonia. Patient was last admitted here exactly a year ago after she presented with shortness of breath and cough secondary to asthma exacerbation. PMH/Family/Social Past Medical History Medications Current Medications Ondansetron HCl (Zofran Inj) 4 mg ER BRIDGE PRN IV NAUSEA AND/OR VOMITING; Start 11/26/18 at 18:30; Stop 11/27/18 at 18:29 Acetaminophen (Tylenol Tab) 650 mg ER BRIDGE PRN PO MILD PAIN(1-3)OR ELEVATED TEMP; Start 11/26/18 at 18:30; Stop 11/27/18 at 18:29 Albuterol/ Ipratropium (Duoneb) 3 ml Q6HWA RESP THERAPY HHN Last administered on 11/26/18at 20:30; Admin Dose 3 ML; Start 11/26/18 at 20:00 Albuterol/ Ipratropium (Duoneb) 3 ml Q2H RESP THERAPY PRN HHN shortness of breath; Start 11/26/18 at 19:00 Budesonide (Pulmicort (Neb)) 0.5 mg BID RESP THERAPY HHN Last administered on 11/26/18at 20:30; Admin Dose 0.5 MG; Start 11/26/18 at 20:00 Cefepime HCl 50 ml @ 100 mls/hr Q12 IVPB Last administered on 11/26/18at 21:01; Admin Dose 100 MLS/HR; Start 11/26/18 at 21:00 Hydralazine HCl (Apresoline) 10 mg ONCE ONCE IV ; Start 11/27/18 at 00:00; Stop 11/27/18 at 00:01 Coded Allergies: Sulfa (Sulfonamide Antibiotics) (Unverified Allergy, Severe, RASH, 11/26/18) Past Surgical History Past Surgical Hx: no surgical history Family History Significant Family History: no pertinent family hx Social History Smoking Status: Never smoker Exam/Review of Systems Vital Signs Vitals Vital Signs Date Temp Pulse Resp B/P (MAP) Pulse Ox O2 O2 Flow FiO2 Time Delivery Rate 11/26/18 97.9 85 16 190/94 93 Room Air 23:45 (126) 11/26/18 2.0 22:31 11/26/18 21 20:30 Exam Exam Constitutional: other (no acute distress) Head: normocephalic Respiratory: other (slight decreased at bases) Cardiovascular: regular rate and rhythm Gastrointestinal: soft Extremities: normal pulses PMH/Family/Social Past Medical History Medical History: other (see hpi) Coded Allergies: No Known Drug Allergy (Verified Allergy, Unknown, 07/12/16) Past Surgical History Past Surgical Hx: other (see hpi) Family History Significant Family History: no pertinent family hx Social History Alcohol Use: other Smoking Status: Unknown if ever smoked Drug Use: other ANNA VILLALBA MD Nov 26, 2018 23:57
[2018-11-27] VITALS (13 sets, daily range): BP systolic 111–159; BP diastolic 56–84; PULSE 76–98; RESP 18–22
[2018-11-27] MEDS ORDERED: hydrALAzine 20 MG INJ IV ONE
[2018-11-27] MEDS ORDERED: METHYLPREDNISOLONE 125 MG INJ IV STA (00:03)
[2018-11-27] MEDS ORDERED: NITROGLYCERIN (SL) 0.4 MG TAB SL PRN (00:30)
[2018-11-27] MEDS ORDERED: HYDROCODONE/APAP (5/325) TAB PO PRN ×2 (00:30)
[2018-11-27] MEDS ORDERED: ONDANSETRON 4 MG INJ IV PRN (00:30)
[2018-11-27] MEDS ORDERED: NACL 0.9% 3 ML SYG IV SCH (00:30)
[2018-11-27] MEDS ORDERED: NON-FORMULARY/PATIENT OWN MED (Salmeterol Xinaf/Fluticasone* (Advair*) 1 INH) INHALATION SCH (00:30)
[2018-11-27] MEDS ORDERED: ACETAMINOPHEN 325 MG TAB PO PRN (00:30)
[2018-11-27] MEDS ORDERED: ALBUTEROL/IPRATROPIUM (NEB) 3 ML AMP HHN PRN (00:30)
[2018-11-27] MEDS ORDERED: AMLODIPINE 10 MG TAB PO ONE (03:00)
[2018-11-27] MEDS: PANTOPRAZOLE (EC) 40 MG TAB PO SCH (06:31)
[2018-11-27] MEDS: LEVOFLOXACIN 500MG/D5W (PMX) 100 ML IVPB SCH (06:31)
[2018-11-27] MEDS: CEFEPIME 1GM/50 ML (PMX) 50 ML IVPB SCH ×2 (08:25→20:06)
[2018-11-27] MEDS: FOLIC ACID 0.4 MG TAB PO SCH (08:25)
[2018-11-27] MEDS: ASPIRIN 81 MG TAB PO SCH (08:25)
[2018-11-27] MEDS: AMLODIPINE 10 MG TAB PO SCH (08:26)
[2018-11-27] MEDS: ALBUTEROL/IPRATROPIUM (NEB) 3 ML AMP HHN SCH ×3 (08:55→20:49)
[2018-11-27] MEDS: BUDESONIDE (NEB) 0.5MG/2ML AMP HHN SCH ×2 (08:55→20:49)
[2018-11-27] MEDS ORDERED: FLUTICASONE/VILANTEROL 100-25 INH SCH (09:00)
[2018-11-27] MEDS ORDERED: ENOXAPARIN 60 MG/0.6 ML SYG SC SCH (09:00)
[2018-11-27] MEDS ORDERED: ENOXAPARIN 100 MG/ML SYG SC SCH (09:00)
--- NOTE | 2018-11-27 11:47 | PN ---
Date/Time of Note Date/Time of Note DATE: 11/27/18 TIME: 11:38 Assessment/Plan VTE Prophylaxis Risk score (from Ns)>0 risk: 5 SCD applied (from [facility] [place] No SCD contraindicated: other Pharmacological prophylaxis: LMWH Lines/Catheters IV Catheter Type (from [facility], [place]): Peripheral IV Urinary Cath still in place: No Assessment/Plan Hospital Course S: Patient had no acute events overnight. Waiting to be seen by cardiology team. Presently on Lovenox treatment dose. O: VS - see below PE: Gen: No acute distress, lying in bed Head: Atraumatic Eyes: Normal Conjunctiva ENT: Normal External Ears, Nose and Mouth. Neck: Full range of motion. No meningismus. No JVD Resp: No tachypnea. No retractions. Mild bibasilar crackles Cardio: Regular rate and rhythm, no murmurs Abd: Soft, non tender, non distended. Normal bowel sounds Ext: No LE edema B/L Neur: no focal deficits Assessment/Plan: 88-year-old female who presents with: 1. Asthma exacerbation -symptoms slowly improving -For now continue supplemental oxygen, bronchodilators, steroid -If symptoms worsen will get pulmonary consult. - We will also obtain PT and OT consults 2. Positive troponin, possibly type II NSTEMI. Patient presently on Lovenox treatment dose. -For now continue supplemental oxygen, aspirin. As needed nitro -Also continue to trend troponin -Follow-up results from 2D echo and cardiology consult 3. Probable pneumonia: Found on chest x-ray -Given associated asthma exacerbation, continue to treat with antibiotic -If symptom worsens, obtain chest CT Result Diagram: 11/27/18 0510 11/27/18 0510 Results 24hrs Laboratory Tests Test 11/26/18 16:50 11/26/18 23:37 11/27/18 05:10 White Blood Count 9.4 # 7.8 Red Blood Count 4.52 4.61 Hemoglobin 13.5 14.0 Hematocrit 40.6 41.1 Mean Corpuscular Volume 89.8 89.2 Mean Corpuscular Hemoglobin 29.9 30.4 Mean Corpuscular Hemoglobin Concent 33.3 34.1 Red Cell Distribution Width 13.2 13.2 Platelet Count 257 # 263 Mean Platelet Volume 9.4 9.5 Immature Granulocytes % 0.700 H 1.100 H Neutrophils % 77.6 H 90.8 H Lymphocytes % 12.5 L 6.4 L Monocytes % 5.7 0.9 Eosinophils % 3.0 0.3 Basophils % 0.5 0.5 Nucleated Red Blood Cells % 0.0 0.0 Immature Granulocytes # 0.070 H 0.090 H Neutrophils # 7.3 7.1 Lymphocytes # 1.2 0.5 L Monocytes # 0.5 0.1 L Eosinophils # 0.3 0.0 Basophils # 0.1 0.0 Nucleated Red Blood Cells # 0.0 0.0 Sodium Level 143 143 Potassium Level 3.8 3.6 Chloride Level 104 104 Carbon Dioxide Level 29 28 Anion Gap 10 11 Blood Urea Nitrogen 9 10 Creatinine 0.65 0.54 Est Glomerular Filtrat Rate mL/min Glucose Level 112 142 Calcium Level 9.3 9.1 Troponin I 0.474 *H 0.414 *H 0.295 *H B-Type Natriuretic Peptide 1860 H Creatine Kinase 50 48 Creatinine Kinase MB (Mass) 1.46 1.20 Hemoglobin A1c 5.7 Total Bilirubin 0.5 Direct Bilirubin 0.00 Indirect Bilirubin 0.5 Aspartate Amino Transf (AST/SGOT) 42 Alanine Aminotransferase (ALT/SGPT) 27 Alkaline Phosphatase 140 H Creatine Kinase Index 2.5 Total Protein 6.5 Albumin 3.8 Globulin 2.70 Albumin/Globulin Ratio 1.40 Triglycerides Level 120 Cholesterol Level 199 LDL Cholesterol, Calculated 130 HDL Cholesterol 45 Cholesterol/HDL Ratio 4.4 Thyroid Stimulating Hormone (TSH) 0.741 Exam/Review of Systems Vital Signs Vitals Vital Signs Date Temp Pulse Resp B/P (MAP) Pulse Ox O2 O2 Flow FiO2 Time Delivery Rate 11/27/18 102 22 95 21 08:53 11/27/18 97.9 128/76 Room Air 07:40 (93) 11/27/18 2.0 05:41 Medications Medications Current Medications Ondansetron HCl (Zofran Inj) 4 mg ER BRIDGE PRN IV NAUSEA AND/OR VOMITING; Start 11/26/18 at 18:30; Stop 11/27/18 at 18:29 Albuterol/ Ipratropium (Duoneb) 3 ml Q6HWA RESP THERAPY HHN Last administered on 11/27/18at 08:55; Admin Dose 3 ML; Start 11/26/18 at 20:00 Albuterol/ Ipratropium (Duoneb) 3 ml Q2H RESP THERAPY PRN HHN shortness of breath; Start 11/26/18 at 19:00 Budesonide (Pulmicort (Neb)) 0.5 mg BID RESP THERAPY HHN Last administered on 11/27/18at 08:55; Admin Dose 0.5 MG; Start 11/26/18 at 20:00 Cefepime HCl 50 ml @ 100 mls/hr Q12 IVPB Last administered on 11/27/18at 08:25; Admin Dose 100 MLS/HR; Start 11/26/18 at 21:00 IV Flush (NS 3 ml) 3 ml PER PROTOCOL IV ; Start 11/27/18 at 00:30 Ondansetron HCl (Zofran Inj) 4 mg Q6H PRN IV NAUSEA AND/OR VOMITING; Start 11/27/18 at 00:30 Nitroglycerin (Nitroglycerin (Sl Tab) 0.4 Mg) 1 tab Q5M PRN SL CHEST PAIN; Start 11/27/18 at 00:30 Acetaminophen (Tylenol Tab) 650 mg Q6H PRN PO PAIN LEVEL 1-3 OR FEVER; Start 11/27/18 at 00:30 Acetaminophen/ Hydrocodone Bitart ([place] (5/325)) 1 tab Q6H PRN PO PAIN LEVEL 4-6; Start 11/27/18 at 00:30 Acetaminophen/ Hydrocodone Bitart ([place] (5/325)) 2 tab Q6H PRN PO PAIN LEVEL 7-10; Start 11/27/18 at 00:30 Albuterol/ Ipratropium (Duoneb) 3 ml Q2H RESP THERAPY PRN HHN SHORTNESS OF BREATH; Start 11/27/18 at 00:30 Aspirin (Aspirin) 81 mg DAILY PO Last administered on 11/27/18at 08:25; Admin Dose 81 MG; Start 11/27/18 at 09:00 Folic Acid (Folic Acid) 0.8 mg DAILY PO Last administered on 11/27/18at 08:25; Admin Dose 0.8 MG; Start 11/27/18 at 09:00 Pantoprazole (Protonix Tab) 40 mg DAILY@0600 PO Last administered on 11/27/18at 06:31; Admin Dose 40 MG; Start 11/27/18 at 06:00 Amlodipine Besylate (Norvasc) 10 mg DAILY PO Last administered on 11/27/18at 08:26; Admin Dose 10 MG; Start 11/27/18 at 09:00 Levofloxacin/ Dextrose 100 ml @ 100 mls/hr DAILY@0600 IVPB Last administered on 11/27/18at 06:31; Admin Dose 100 MLS/HR; Start 11/27/18 at 06:00 Enoxaparin Sodium (Lovenox) 50 mg Q12 SC Last administered on 11/27/18at 08:30; Admin Dose 50 MG; Start 11/27/18 at 09:00 Fluticasone/ Vilanterol (Breo Ellipta 100-25 Mcg Inh) 1 inh DAILY INH ; Start 11/27/18 at 09:00; Status Hold CHET LINDSAY Nov 27, 2018 11:47
[2018-11-27] MEDS: GUAIFENESIN 20 MG/ML 5ML CUP PO PRN (16:29)
--- NOTE | 2018-11-27 17:46 | CONS ---
Date/Time of Note Date/Time of Note DATE: 11/27/18 TIME: 17:41 Assessment/Plan Assessment/Plan Hospital Course 1) Troponinelevation 2) Asthma 3) SOB improved 4) Abnormal EKG 5) HTN 6) PNA Assessment/Plan 1) ASA 2) Statin 3) agree with amlodipine 4) will start statin 5) hesitant for beta alonzo given asthma and wheezing 6) medical mgt at this time preferred in the absence of significant symptoms. patient and family at bedside at this time hesitant for invasive measures 7) Echo 8) venous duplex 9) dc therapeutic lovenox in the absence of symptoms, will start DVT prophylaxis Result Diagram: 11/27/18 0510 11/27/18 0510 Results 24hrs Laboratory Tests Test 11/26/18 23:37 11/27/18 05:10 11/27/18 12:01 11/27/18 14:34 Creatine Kinase 50 48 Creatinine Kinase MB 1.46 1.20 (Mass) Troponin I 0.414 *H 0.295 *H 0.195 *H 0.192 *H White Blood Count 7.8 Red Blood Count 4.61 Hemoglobin 14.0 Hematocrit 41.1 Mean Corpuscular Volume 89.2 Mean Corpuscular 30.4 Hemoglobin Mean Corpuscular 34.1 Hemoglobin Concent Red Cell Distribution 13.2 Width Platelet Count 263 Mean Platelet Volume 9.5 Immature Granulocytes % 1.100 H Neutrophils % 90.8 H Lymphocytes % 6.4 L Monocytes % 0.9 Eosinophils % 0.3 Basophils % 0.5 Nucleated Red Blood 0.0 Cells % Immature Granulocytes # 0.090 H Neutrophils # 7.1 Lymphocytes # 0.5 L Monocytes # 0.1 L Eosinophils # 0.0 Basophils # 0.0 Nucleated Red Blood 0.0 Cells # Sodium Level 143 Potassium Level 3.6 Chloride Level 104 Carbon Dioxide Level 28 Anion Gap 11 Blood Urea Nitrogen 10 Creatinine 0.54 Est Glomerular Filtrat Rate mL/min Glucose Level 142 Hemoglobin A1c 5.7 Calcium Level 9.1 Total Bilirubin 0.5 Direct Bilirubin 0.00 Indirect Bilirubin 0.5 Aspartate Amino 42 Transf (AST/SGOT) Alanine 27 Aminotransferase (ALT/SG PT) Alkaline Phosphatase 140 H Creatine Kinase Index 2.5 Total Protein 6.5 Albumin 3.8 Globulin 2.70 Albumin/Globulin Ratio 1.40 Triglycerides Level 120 Cholesterol Level 199 LDL Cholesterol, 130 Calculated HDL Cholesterol 45 Cholesterol/HDL Ratio 4.4 Thyroid Stimulating 0.741 Hormone (TSH) Consultation Date/Type/Reason Admit Date/Time Nov 26, 2018 at 18:26 Date of Consultation: Nov 27, 2018 Type of Consult cv Reason for Consultation troponinelevation Hx of Present Illness patient with SOB, now resolved, denies chest pain or pressure, or palpitations, no syncope, found to have infiltrate and troponinelevation Respiratory: no complaints Cardiovascular: no complaints Gastrointestinal: no complaints Musculoskeletal: no complaints Skin: no complaints Neurologic: no complaints Endocrine: no complaints Past Medical History Medical History: hypertension, other Medications Current Medications Ondansetron HCl (Zofran Inj) 4 mg ER BRIDGE PRN IV NAUSEA AND/OR VOMITING; Start 11/26/18 at 18:30; Stop 11/27/18 at 18:29 Albuterol/ Ipratropium (Duoneb) 3 ml Q6HWA RESP THERAPY HHN Last administered on 11/27/18at 13:57; Admin Dose 3 ML; Start 11/26/18 at 20:00 Albuterol/ Ipratropium (Duoneb) 3 ml Q2H RESP THERAPY PRN HHN shortness of breath; Start 11/26/18 at 19:00 Budesonide (Pulmicort (Neb)) 0.5 mg BID RESP THERAPY HHN Last administered on 11/27/18at 08:55; Admin Dose 0.5 MG; Start 11/26/18 at 20:00 Cefepime HCl 50 ml @ 100 mls/hr Q12 IVPB Last administered on 11/27/18at 08:25; Admin Dose 100 MLS/HR; Start 11/26/18 at 21:00 IV Flush (NS 3 ml) 3 ml PER PROTOCOL IV ; Start 11/27/18 at 00:30 Ondansetron HCl (Zofran Inj) 4 mg Q6H PRN IV NAUSEA AND/OR VOMITING; Start 11/27/18 at 00:30 Nitroglycerin (Nitroglycerin (Sl Tab) 0.4 Mg) 1 tab Q5M PRN SL CHEST PAIN; Start 11/27/18 at 00:30 Acetaminophen (Tylenol Tab) 650 mg Q6H PRN PO PAIN LEVEL 1-3 OR FEVER; Start 11/27/18 at 00:30 Acetaminophen/ Hydrocodone Bitart ([place] (5/325)) 1 tab Q6H PRN PO PAIN LEVEL 4-6; Start 11/27/18 at 00:30 Acetaminophen/ Hydrocodone Bitart ([place] (5/325)) 2 tab Q6H PRN PO PAIN LEVEL 7-10; Start 11/27/18 at 00:30 Albuterol/ Ipratropium (Duoneb) 3 ml Q2H RESP THERAPY PRN HHN SHORTNESS OF BREATH; Start 11/27/18 at 00:30 Aspirin (Aspirin) 81 mg DAILY PO Last administered on 11/27/18at 08:25; Admin Dose 81 MG; Start 11/27/18 at 09:00 Folic Acid (Folic Acid) 0.8 mg DAILY PO Last administered on 11/27/18at 08:25; Admin Dose 0.8 MG; Start 11/27/18 at 09:00 Pantoprazole (Protonix Tab) 40 mg DAILY@0600 PO Last administered on 11/27/18at 06:31; Admin Dose 40 MG; Start 11/27/18 at 06:00 Amlodipine Besylate (Norvasc) 10 mg DAILY PO Last administered on 11/27/18at 08:26; Admin Dose 10 MG; Start 11/27/18 at 09:00 Levofloxacin/ Dextrose 100 ml @ 100 mls/hr DAILY@0600 IVPB Last administered on 11/27/18at 06:31; Admin Dose 100 MLS/HR; Start 11/27/18 at 06:00 Fluticasone/ Vilanterol (Breo Ellipta 100-25 Mcg Inh) 1 inh DAILY INH ; Start 11/27/18 at 09:00; Status Hold Guaifenesin (Robitussin Liquid Cup) 200 mg Q4H PRN PO cough Last administered on 11/27/18at 16:29; Admin Dose 200 MG; Start 11/27/18 at 16:30 Atorvastatin Calcium (Lipitor) 40 mg HS PO ; Start 11/27/18 at 21:00; Status UNV Enoxaparin Sodium (Lovenox) 40 mg DAILY SC ; Start 11/28/18 at 09:00; Status UNV Allergies: Coded Allergies: Sulfa (Sulfonamide Antibiotics) (Unverified Allergy, Severe, RASH, 11/26/18) Past Surgical History Past Surgical Hx: no surgical history Family History Significant Family History: hypertension Social History Smoking Status: Never smoker Exam/Review of Systems Vital Signs Vitals Vital Signs Date Temp Pulse Resp B/P (MAP) Pulse Ox O2 O2 Flow FiO2 Time Delivery Rate 11/27/18 94 16:01 11/27/18 97.8 22 117/67 96 Room Air 15:53 (84) 11/27/18 21 13:58 11/27/18 2.0 05:41 Exam Constitutional: alert, oriented Head: normocephalic, atraumatic Neck: supple Respiratory: clear to auscultation Cardiovascular: regular rate and rhythm Gastrointestinal: soft Musculoskeletal: nl extremities to inspection Extremities: normal pulses Medications Medications Current Medications Ondansetron HCl (Zofran Inj) 4 mg ER BRIDGE PRN IV NAUSEA AND/OR VOMITING; Start 11/26/18 at 18:30; Stop 11/27/18 at 18:29 Albuterol/ Ipratropium (Duoneb) 3 ml Q6HWA RESP THERAPY HHN Last administered on 11/27/18at 13:57; Admin Dose 3 ML; Start 11/26/18 at 20:00 Albuterol/ Ipratropium (Duoneb) 3 ml Q2H RESP THERAPY PRN HHN shortness of breath; Start 11/26/18 at 19:00 Budesonide (Pulmicort (Neb)) 0.5 mg BID RESP THERAPY HHN Last administered on 11/27/18at 08:55; Admin Dose 0.5 MG; Start 11/26/18 at 20:00 Cefepime HCl 50 ml @ 100 mls/hr Q12 IVPB Last administered on 11/27/18at 08:25; Admin Dose 100 MLS/HR; Start 11/26/18 at 21:00 IV Flush (NS 3 ml) 3 ml PER PROTOCOL IV ; Start 11/27/18 at 00:30 Ondansetron HCl (Zofran Inj) 4 mg Q6H PRN IV NAUSEA AND/OR VOMITING; Start 11/27/18 at 00:30 Nitroglycerin (Nitroglycerin (Sl Tab) 0.4 Mg) 1 tab Q5M PRN SL CHEST PAIN; Start 11/27/18 at 00:30 Acetaminophen (Tylenol Tab) 650 mg Q6H PRN PO PAIN LEVEL 1-3 OR FEVER; Start 11/27/18 at 00:30 Acetaminophen/ Hydrocodone Bitart ([place] (5/325)) 1 tab Q6H PRN PO PAIN LEVEL 4-6; Start 11/27/18 at 00:30 Acetaminophen/ Hydrocodone Bitart ([place] (5/325)) 2 tab Q6H PRN PO PAIN LEVEL 7-10; Start 11/27/18 at 00:30 Albuterol/ Ipratropium (Duoneb) 3 ml Q2H RESP THERAPY PRN HHN SHORTNESS OF BREATH; Start 11/27/18 at 00:30 Aspirin (Aspirin) 81 mg DAILY PO Last administered on 11/27/18at 08:25; Admin Dose 81 MG; Start 11/27/18 at 09:00 Folic Acid (Folic Acid) 0.8 mg DAILY PO Last administered on 11/27/18at 08:25; Admin Dose 0.8 MG; Start 11/27/18 at 09:00 Pantoprazole (Protonix Tab) 40 mg DAILY@0600 PO Last administered on 11/27/18at 06:31; Admin Dose 40 MG; Start 11/27/18 at 06:00 Amlodipine Besylate (Norvasc) 10 mg DAILY PO Last administered on 11/27/18at 08:26; Admin Dose 10 MG; Start 11/27/18 at 09:00 Levofloxacin/ Dextrose 100 ml @ 100 mls/hr DAILY@0600 IVPB Last administered on 11/27/18at 06:31; Admin Dose 100 MLS/HR; Start 11/27/18 at 06:00 Fluticasone/ Vilanterol (Breo Ellipta 100-25 Mcg Inh) 1 inh DAILY INH ; Start 11/27/18 at 09:00; Status Hold Guaifenesin (Robitussin Liquid Cup) 200 mg Q4H PRN PO cough Last administered on 11/27/18at 16:29; Admin Dose 200 MG; Start 11/27/18 at 16:30 Atorvastatin Calcium (Lipitor) 40 mg HS PO ; Start 11/27/18 at 21:00; Status UNV Enoxaparin Sodium (Lovenox) 40 mg DAILY SC ; Start 11/28/18 at 09:00; Status UNV Imaging Imaging EKG: SR, nonspecific ST changes Tele: brief narrow complex tachy GREGORY LIGHT MD Nov 27, 2018 17:46
--- NOTE | 2018-11-27 19:28 | RADRPT ---
Echocardiogram Report Patient Name: KARMEN AMBROSE Gender: Female Date: 1930 Study Date: 27-Nov-2018 Medical Reimbursement Specialist: Anival [facility] Location: [id number] Ref. Physician: ANNA VILLALBA Quality: Adequate Procedures: Transthoracic echocardiogram with complete 2D, M-Mode, and doppler examination. Indications: Evaluate Left Ventricular function. 2D/M Mode Doppler Measurement Value Normal Ranges Measurement Value Normal Ranges LVIDd 2D 3.9 3.5 - 5.6 cm AV Peak Jose M 1.5 m/sec LVIDs 2D 2.2 2.1 - 4.1 cm AV Peak PG 9.0 mmHg LVPWd 2D 1.0 0.6 - 1.1 cm LVOT Peak Jose M 1.2 m/sec IVSd 2D 1.0 0.6 - 1.1 cm LVOT Peak PG 5.0 mmHg AoR Diam 2D 2.6 2.0 - 3.7 cm MV E Peak Jose M 0.6 m/sec LA/Ao 2D 1 0 - 1 MV A Peak Jose M 1.0 m/sec LA Dimen 2D 2.8 2.3 - 4.0 cm MV E/A 0.6 MV Decel Time 99 msec Lat E` Jose M 0.1 m/sec Lateral E/E` 7.9 Med E` Jose M 0.1 m/sec MV E/A 0.6 TR Peak Jose M 3.6 m/sec TR Peak PG 52.0 mmHg RVSP 55.0 mmHg Findings Left Ventricle: Normal left ventricular systolic function. Normal left ventricular cavity size. Left ventricular wall thickness upper limits of normal. Ejection fraction is visually estimated at 65 %. Tissue Doppler/Mitral Doppler indices are consistent with impaired relaxation (Stage I diastolic dysfunction). Right Ventricle: Normal right ventricular size. Normal right ventricular systolic function. Left Atrium: The left atrium is normal in size. Right Atrium: The right atrium is normal in size. Mitral Valve: Mild mitral leaflet calcification. Mild mitral annular calcification. Trace mitral regurgitation. Aortic Valve: No significant aortic stenosis or insufficiency. Aortic cusps appear mildly calcified. Trace aortic valve regurgitation. Tricuspid Valve: Normal appearance of the tricuspid valve. Estimated peak PA systolic pressure 55 mmHg. There is mild tricuspid regurgitation. Pulmonic Valve: Pulmonic valve not well visualized. There is trace pulmonic regurgitation. Pericardium: Normal pericardium with no significant pericardial effusion. Aorta: Normal aortic root. IVC: Normal size and normal respiratory collapse consistent with normal right atrial pressure. Conclusions Normal left ventricular systolic function. Normal left ventricular cavity size. Left ventricular wall thickness upper limits of normal. Ejection fraction is visually estimated at 65 %. Tissue Doppler/Mitral Doppler indices are consistent with impaired relaxation (Stage I diastolic dysfunction). Normal right ventricular size. Normal right ventricular systolic function. The left atrium is normal in size. The right atrium is normal in size. Normal appearance of the tricuspid valve. Estimated peak PA systolic pressure 55 mmHg. There is mild tricuspid regurgitation. No significant valvular stenosis or regurgitation seen of remaining visualized valves. Normal pericardium with no significant pericardial effusion. Electronically Signed By: Kasi Hughes 27-Nov-2018 19:27:50 -0800 Patient Name: KARMEN AMBROSE Study Date: 27-Nov-2018 [id number]
[2018-11-27] MEDS: ATORVASTATIN 40 MG TAB PO SCH (20:06)
[2018-11-28] VITALS (12 sets, daily range): BP systolic 121–148; BP diastolic 66–81; PULSE 78–98; RESP 16–19
[2018-11-28] MEDS: LEVOFLOXACIN 500MG/D5W (PMX) 100 ML IVPB SCH (05:34)
[2018-11-28] MEDS: PANTOPRAZOLE (EC) 40 MG TAB PO SCH (05:35)
[2018-11-28] MEDS: CEFEPIME 1GM/50 ML (PMX) 50 ML IVPB SCH ×2 (08:13→20:29)
[2018-11-28] MEDS: ASPIRIN 81 MG TAB PO SCH (08:13)
[2018-11-28] MEDS: AMLODIPINE 10 MG TAB PO SCH (08:13)
[2018-11-28] MEDS: FOLIC ACID 0.4 MG TAB PO SCH (08:13)
[2018-11-28] MEDS: BUDESONIDE (NEB) 0.5MG/2ML AMP HHN SCH ×2 (08:32→20:54)
[2018-11-28] MEDS: ALBUTEROL/IPRATROPIUM (NEB) 3 ML AMP HHN SCH (08:32)
[2018-11-28] MEDS ORDERED: ENOXAPARIN 40 MG/0.4 ML SYG SC SCH (09:00)
[2018-11-28] MEDS: GUAIFENESIN 20 MG/ML 5ML CUP PO PRN (10:46)
--- NOTE | 2018-11-28 11:52 | PN ---
Date/Time of Note Date/Time of Note DATE: 11/28/18 TIME: 11:46 Assessment/Plan VTE Prophylaxis Risk score (from Ns)>0 risk: 5 SCD applied (from [facility] [place]): No SCD contraindicated: other Pharmacological prophylaxis: LMWH Lines/Catheters [facility] Peripheral IV Urinary Cath still in place: No Assessment/Plan Hospital Course S: Patient has less shortness of breath symptoms overall. Seen by cardiology team earlier, as well as PT and OT teams yesterday. O: VS - see below PE: Gen: No acute distress, lying in bed Head: Atraumatic Eyes: Normal Conjunctiva ENT: Normal External Ears, Nose and Mouth. Neck: Supple Resp: No tachypnea. No retractions. Less wheezes and crackles heard at the bases bilaterally Cardio: Regular rate and rhythm, no murmurs Abd: Soft, non tender, non distended. Normal bowel sounds Ext: No LE edema B/L Neur: no focal deficits 2D echo: Conclusions Normal left ventricular systolic function. Normal left ventricular cavity size. Left ventricular wall thickness upper limits of normal. Ejection fraction is visually estimated at 65 %. Tissue Doppler/Mitral Doppler indices are consistent with impaired relaxation (Stage I diastolic dysfunction). Normal right ventricular size. Normal right ventricular systolic function. The left atrium is normal in size. The right atrium is normal in size. Normal appearance of the tricuspid valve. Estimated peak PA systolic pressure 55 mmHg. There is mild tricuspid regurgitation. No significant valvular stenosis or regurgitation seen of remaining visualized valves. Normal pericardium with no significant pericardial effusion. Assessment/Plan: 88-year-old female who presents with: 1. Asthma exacerbation -symptoms slowly improving -For now continue supplemental oxygen, bronchodilators, steroid -If symptoms worsen will get pulmonary consult. -Continue PT and OT 2. Positive troponin, possibly type II NSTEMI. Patient presently on Lovenox treatment dose. -For now continue supplemental oxygen, aspirin. As needed nitro -Also continue to trend troponin -Follow-up recs from cardiology consult 3. Probable pneumonia: Found on chest x-ray -slowly improving -continue to treat with antibiotic -If symptom worsens, obtain chest CT Result Diagram: 11/28/18 0515 11/28/18 0515 Results 24hrs Laboratory Tests Test 11/27/18 12:01 11/27/18 14:34 11/27/18 22:31 11/28/18 05:15 Troponin I 0.195 *H 0.192 *H 0.198 *H White Blood Count 10.2 # Red Blood Count 4.41 Hemoglobin 13.3 Hematocrit 40.0 Mean Corpuscular Volume 90.7 Mean Corpuscular 30.2 Hemoglobin Mean Corpuscular 33.3 Hemoglobin Concent Red Cell Distribution 13.2 Width Platelet Count 309 Mean Platelet Volume 9.1 Immature Granulocytes % 0.800 H Neutrophils % 79.1 H Lymphocytes % 12.9 L Monocytes % 5.9 Eosinophils % 0.9 Basophils % 0.4 Nucleated Red Blood 0.0 Cells % Immature Granulocytes # 0.080 H Neutrophils # 8.1 H Lymphocytes # 1.3 Monocytes # 0.6 Eosinophils # 0.1 Basophils # 0.0 Nucleated Red Blood 0.0 Cells # Sodium Level 144 Potassium Level 3.5 Chloride Level 105 Carbon Dioxide Level 31 Anion Gap 8 Blood Urea Nitrogen 13 Creatinine 0.61 Est Glomerular Filtrat Rate mL/min Glucose Level 104 Calcium Level 9.2 Phosphorus Level 3.8 Magnesium Level 2.3 Exam/Review of Systems Vital Signs Vitals Vital Signs Date Temp Pulse Resp B/P (MAP) Pulse Ox O2 O2 Flow FiO2 Time Delivery Rate 11/28/18 98.3 88 18 124/73 97 Nasal 11:14 (90) Cannula 11/28/18 2.0 08:32 11/28/18 28 08:32 Intake and Output 11/27/18 11/27/18 11/28/18 1515:00 23:00 07:00 IntakeIntake Total 150 ml 820 ml 600 ml BalanceBalance 150 ml 820 ml 600 ml Medications Medications Current Medications Albuterol/ Ipratropium (Duoneb) 3 ml Q6HWA RESP THERAPY HHN Last administered on 11/28/18at 08:32; Admin Dose 3 ML; Start 11/26/18 at 20:00 Albuterol/ Ipratropium (Duoneb) 3 ml Q2H RESP THERAPY PRN HHN shortness of breath; Start 11/26/18 at 19:00 Budesonide (Pulmicort (Neb)) 0.5 mg BID RESP THERAPY HHN Last administered on 11/28/18at 08:32; Admin Dose 0.5 MG; Start 11/26/18 at 20:00 Cefepime HCl 50 ml @ 100 mls/hr Q12 IVPB Last administered on 11/28/18 08:13; Admin Dose 100 MLS/HR; Start 11/26/18 at 21:00 IV Flush (NS 3 ml) 3 ml PER PROTOCOL IV ; Start 11/27/18 at 00:30 Ondansetron HCl (Zofran Inj) 4 mg Q6H PRN IV NAUSEA AND/OR VOMITING; Start 11/27/18 at 00:30 Nitroglycerin (Nitroglycerin (Sl Tab) 0.4 Mg) 1 tab Q5M PRN SL CHEST PAIN; Start 11/27/18 at 00:30 Acetaminophen (Tylenol Tab) 650 mg Q6H PRN PO PAIN LEVEL 1-3 OR FEVER; Start 11/27/18 at 00:30 Acetaminophen/ Hydrocodone Bitart ([place] (5/325)) 1 tab Q6H PRN PO PAIN LEVEL 4-6; Start 11/27/18 at 00:30 Acetaminophen/ Hydrocodone Bitart ([place] (5/325)) 2 tab Q6H PRN PO PAIN LEVEL 7-10; Start 11/27/18 at 00:30 Albuterol/ Ipratropium (Duoneb) 3 ml Q2H RESP THERAPY PRN HHN SHORTNESS OF BREATH; Start 11/27/18 at 00:30 Aspirin (Aspirin) 81 mg DAILY PO Last administered on 11/28/18 08:13; Admin Dose 81 MG; Start 11/27/18 at 09:00 Folic Acid (Folic Acid) 0.8 mg DAILY PO Last administered on 11/28/18 08:13; Admin Dose 0.8 MG; Start 11/27/18 at 09:00 Pantoprazole (Protonix Tab) 40 mg DAILY@0600 PO Last administered on 11/28/18 05:35; Admin Dose 40 MG; Start 11/27/18 at 06:00 Amlodipine Besylate (Norvasc) 10 mg DAILY PO Last administered on 11/28/18 08:13; Admin Dose 10 MG; Start 11/27/18 at 09:00 Levofloxacin/ Dextrose 100 ml @ 100 mls/hr DAILY@0600 IVPB Last administered on 11/28/18 05:34; Admin Dose 100 MLS/HR; Start 11/27/18 at 06:00 Fluticasone/ Vilanterol (Breo Ellipta 100-25 Mcg Inh) 1 inh DAILY INH ; Start 11/27/18 at 09:00; Status Hold Guaifenesin (Robitussin Liquid Cup) 200 mg Q4H PRN PO cough Last administered on 11/28/18at 10:46; Admin Dose 200 MG; Start 11/27/18 at 16:30 Atorvastatin Calcium (Lipitor) 40 mg HS PO Last administered on 11/27/18at 20:06; Admin Dose 40 MG; Start 11/27/18 at 21:00 Enoxaparin Sodium (Lovenox) 40 mg DAILY SC Last administered on 11/28/18at 08:18; Admin Dose 40 MG; Start 11/28/18 at 09:00 CHET LINDSAY Nov 28, 2018 11:52
--- NOTE | 2018-11-28 11:57 | CONS ---
Date/Time of Note Date/Time of Note DATE: 11/28/18 TIME: 11:52 Assessment/Plan Assessment/Plan Assessment/Plan Shortness of breath Asthma and possibly pneumonia Mildly elevated troponin, trending down Preserved ejection fraction Acute superficial thrombi bilateral peroneal veins Hypertension -Patient is feeling better today with much less shortness of breath and denies chest pain. Troponins have been trending down. Venous duplex performed with evidence of superficial thrombi in bilateral peroneal's, I did discuss with radiology and this appears acute. Furthermore an echocardiogram, patient with pulmonary hypertension. Would need to rule out pulmonary emboli as well, would order CT pulmonary angiogram. Even though patient with superficial thrombi, would strongly consider anticoagulation treatment to prevent recurrence as well as post thrombotic syndrome. Duration of anticoagulation will be decided based on CT pulmonary angiogram results. I did discuss with patient's daughter over the phone, patient without any issues of bleeding on a regular basis, did have epistaxis a while ago but this was one episode. I will start the patient on anticoagulation in the interim. Result Diagram: 11/28/18 0515 11/28/18 0515 Results 24hrs Laboratory Tests Test 11/27/18 12:01 11/27/18 14:34 11/27/18 22:31 11/28/18 05:15 Troponin I 0.195 *H 0.192 *H 0.198 *H White Blood Count 10.2 # Red Blood Count 4.41 Hemoglobin 13.3 Hematocrit 40.0 Mean Corpuscular Volume 90.7 Mean Corpuscular 30.2 Hemoglobin Mean Corpuscular 33.3 Hemoglobin Concent Red Cell Distribution 13.2 Width Platelet Count 309 Mean Platelet Volume 9.1 Immature Granulocytes % 0.800 H Neutrophils % 79.1 H Lymphocytes % 12.9 L Monocytes % 5.9 Eosinophils % 0.9 Basophils % 0.4 Nucleated Red Blood 0.0 Cells % Immature Granulocytes # 0.080 H Neutrophils # 8.1 H Lymphocytes # 1.3 Monocytes # 0.6 Eosinophils # 0.1 Basophils # 0.0 Nucleated Red Blood 0.0 Cells # Sodium Level 144 Potassium Level 3.5 Chloride Level 105 Carbon Dioxide Level 31 Anion Gap 8 Blood Urea Nitrogen 13 Creatinine 0.61 Est Glomerular Filtrat Rate mL/min Glucose Level 104 Calcium Level 9.2 Phosphorus Level 3.8 Magnesium Level 2.3 Consultation Date/Type/Reason Admit Date/Time Nov 26, 2018 at 18:26 Initial Consult Date 11/27/18 Type of Consult cv 24 HR Interval Summary Free Text/Dictation Feeling much better today. Much less shortness of breath. Denies chest pain, palpitations. Having intermittent cough Exam/Review of Systems Vital Signs Vitals Vital Signs Date Temp Pulse Resp B/P (MAP) Pulse Ox O2 O2 Flow FiO2 Time Delivery Rate 11/28/18 98.3 88 18 124/73 97 Nasal 11:14 (90) Cannula 11/28/18 2.0 08:32 11/28/18 28 08:32 Intake and Output 11/27/18 11/27/18 11/28/18 1414:59 22:59 06:59 IntakeIntake Total 150 ml 820 ml 600 ml BalanceBalance 150 ml 820 ml 600 ml Exam No apparent distress Constitutional: alert, oriented Head: normocephalic Respiratory: other (Coarse breath sounds bilaterally, no wheezing) Cardiovascular: regular rate and rhythm, other (S1-S2 heard) Gastrointestinal: soft, non-tender, bowel sounds Extremities: edema (Trace) Medications Medications Current Medications Albuterol/ Ipratropium (Duoneb) 3 ml Q6HWA RESP THERAPY HHN Last administered on 11/28/18at 08:32; Admin Dose 3 ML; Start 11/26/18 at 20:00 Albuterol/ Ipratropium (Duoneb) 3 ml Q2H RESP THERAPY PRN HHN shortness of breath; Start 11/26/18 at 19:00 Budesonide (Pulmicort (Neb)) 0.5 mg BID RESP THERAPY HHN Last administered on 11/28/18at 08:32; Admin Dose 0.5 MG; Start 11/26/18 at 20:00 Cefepime HCl 50 ml @ 100 mls/hr Q12 IVPB Last administered on 11/28/18at 08:13; Admin Dose 100 MLS/HR; Start 11/26/18 at 21:00 IV Flush (NS 3 ml) 3 ml PER PROTOCOL IV ; Start 11/27/18 at 00:30 Ondansetron HCl (Zofran Inj) 4 mg Q6H PRN IV NAUSEA AND/OR VOMITING; Start 11/27/18 at 00:30 Nitroglycerin (Nitroglycerin (Sl Tab) 0.4 Mg) 1 tab Q5M PRN SL CHEST PAIN; St art 11/27/18 at 00:30 Acetaminophen (Tylenol Tab) 650 mg Q6H PRN PO PAIN LEVEL 1-3 OR FEVER; Start at 00:30 Acetaminophen/ Hydrocodone Bitart ([place] (5/325)) 1 tab Q6H PRN PO PAIN LEVEL 4-6; Start 11/27/18 at 00:30 Acetaminophen/ Hydrocodone Bitart ([place] (5/325)) 2 tab Q6H PRN PO PAIN LEVEL 7-10; Start 11/27/18 at 00:30 Albuterol/ Ipratropium (Duoneb) 3 ml Q2H RESP THERAPY PRN HHN SHORTNESS OF BREATH; Start 11/27/18 at 00:30 Aspirin (Aspirin) 81 mg DAILY PO Last administered on 11/28/18at 08:13; Admin Dose 81 MG; Start 11/27/18 at 09:00 Folic Acid (Folic Acid) 0.8 mg DAILY PO Last administered on 11/28/18at 08:13; Admin Dose 0.8 MG; Start 11/27/18 at 09:00 Pantoprazole (Protonix Tab) 40 mg DAILY@0600 PO Last administered on 11/28/18 05:35; Admin Dose 40 MG; Start 11/27/18 at 06:00 Amlodipine Besylate (Norvasc) 10 mg DAILY PO Last administered on 11/28/18at 08:13; Admin Dose 10 MG; Start 11/27/18 at 09:00 Levofloxacin/ Dextrose 100 ml @ 100 mls/hr DAILY@0600 IVPB Last administered o n 11/28/18at 05:34; Admin Dose 100 MLS/HR; Start 11/27/18 at 06:00 Fluticasone/ Vilanterol (Breo Ellipta 100-25 Mcg Inh) 1 inh DAILY INH ; Start 11/27/18 at 09:00; Status Hold Guaifenesin (Robitussin Liquid Cup) 200 mg Q4H PRN PO cough Last administered on 11/28/18at 10:46; Admin Dose 200 MG; Start 11/27/18 at 16:30 Atorvastatin Calcium (Lipitor) 40 mg HS PO Last administered on 11/27/18at 20:06; Admin Dose 40 MG; Start 11/27/18 at 21:00 Enoxaparin Sodium (Lovenox) 40 mg DAILY SC Last administered on 11/28/18at 08:18; Admin Dose 40 MG; Start 11/28/18 at 09:00 Kasi Hughes DO Nov 28, 2018 11:57
[2018-11-28] MEDS: predniSONE 20 MG TAB PO SCH (12:21)
[2018-11-28] MEDS ORDERED: SOD CHLORIDE 0.9% 100 ML ONE (16:42)
[2018-11-28] MEDS ORDERED: IOHEXOL 100 ML ONE (16:43)
[2018-11-28] MEDS: ATORVASTATIN 40 MG TAB PO SCH (20:29)
[2018-11-28] MEDS: APIXABAN 5 MG TABLET PO SCH (20:29)
[2018-11-28] MEDS: METOPROLOL 25 MG TAB PO SCH (20:30)
[2018-11-29] VITALS (12 sets, daily range): BP systolic 109–132; BP diastolic 63–75; PULSE 65–93; RESP 17–21
[2018-11-29] MEDS: PANTOPRAZOLE (EC) 40 MG TAB PO SCH (05:17)
[2018-11-29] MEDS: LEVOFLOXACIN 500MG/D5W (PMX) 100 ML IVPB SCH (05:17)
[2018-11-29] MEDS: AMLODIPINE 10 MG TAB PO SCH (09:25)
[2018-11-29] MEDS: predniSONE 20 MG TAB PO SCH (09:25)
[2018-11-29] MEDS: ASPIRIN 81 MG TAB PO SCH (09:25)
[2018-11-29] MEDS: FOLIC ACID 0.4 MG TAB PO SCH (09:25)
[2018-11-29] MEDS: METOPROLOL 25 MG TAB PO SCH ×2 (09:26→20:29)
[2018-11-29] MEDS: APIXABAN 5 MG TABLET PO SCH (09:26)
[2018-11-29] MEDS: CEFEPIME 1GM/50 ML (PMX) 50 ML IVPB SCH ×2 (09:26→20:32)
--- NOTE | 2018-11-29 10:08 | PN ---
Date/Time of Note Date/Time of Note DATE: 11/29/18 TIME: 10:03 Assessment/Plan VTE Prophylaxis Risk score (from Ns)>0 risk: 10 SCD applied (from [facility] [place]): No SCD contraindicated: other Pharmacological prophylaxis: apixaban Lines/Catheters IV Catheter Type (from [facility]): [place] Urinary Cath still in place: No Assessment/Plan Hospital Course S: Patient has less shortness of breath symptoms overall. Started on anticoagulation for the lower extremity clots, although superficial. CTA chest results noted. O: VS - see below PE: Gen: No acute distress, lying in bed Head: Atraumatic Eyes: Normal Conjunctiva ENT: Normal External Ears, Nose and Mouth. Neck: Supple Resp: No tachypnea. No retractions. Less wheezes and crackles heard at the bases bilaterally Cardio: Regular rate and rhythm, no murmurs Abd: Soft, non tender, non distended. Normal bowel sounds Ext: No LE edema B/L Neur: no focal deficits 2D echo: Conclusions Normal left ventricular systolic function. Normal left ventricular cavity size. Left ventricular wall thickness upper limits of normal. Ejection fraction is visually estimated at 65 %. Tissue Doppler/Mitral Doppler indices are consistent with impaired relaxation (Stage I diastolic dysfunction). Normal right ventricular size. Normal right ventricular systolic function. The left atrium is normal in size. The right atrium is normal in size. Normal appearance of the tricuspid valve. Estimated peak PA systolic pressure 55 mmHg. There is mild tricuspid regurgitation. No significant valvular stenosis or regurgitation seen of remaining visualized valves. Normal pericardium with no significant pericardial effusion. CTA chest: IMPRESSION: Study is limited for pulmonary emboli as a subsegmental pulmonary arteries are obscured with no visible central filling defects. There findings suggestive for pulmonary arterial hypertension. Prominent atherosclerotic disease. There is a solid appearing area of dense consolidation in the right upper lobe which appears to have increased from the prior exam worrisome for lung neoplasm or an area of dense infection. This can be further evaluated with biopsy or PET scan. Continued follow-up is recommended. Layering right effusion has developed which results in partial compressive atelectasis of the right lower lobe. Mild pulmonary edema is seen within the lung parenchyma. Assessment/Plan: 88-year-old female who presents with: 1. Asthma exacerbation -symptoms slowly improving. -For now continue supplemental oxygen, bronchodilators, steroid -If symptoms worsen will get pulmonary consult. -Continue PT and OT 2. Positive troponin, possibly type II NSTEMI. Patient presently on Lovenox treatment dose. -For now continue supplemental oxygen, aspirin. As needed nitro -Also continue to trend troponin -Follow-up recs from cardiology consult 3. Probable pneumonia: Found on chest x-ray -slowly improving. Of note CTA chest results noted. -continue to treat with antibiotic -Given possible right upper lobe lung lesion, will get pulmonary consult for further investigate (Also signs of possible pulmonary arterial hypertension present). 4. Peroneal vein blood clots: Present on lower extremity ultrasound. - Per cardiology recommendations, started on Eliquis for that, bc per them even though patient with superficial thrombi, would strongly consider anticoagulation treatment to prevent recurrence as well as post thrombotic syndrome. Result Diagram: 11/29/1852411/29/18524 Results 24hrs Laboratory Tests Test 11/29/18 05:25 White Blood Count 9.3 Red Blood Count 4.86 Hemoglobin 14.4 Hematocrit 44.0 Mean Corpuscular Volume 90.5 Mean Corpuscular Hemoglobin 29.6 Mean Corpuscular Hemoglobin Concent 32.7 Red Cell Distribution Width 13.1 Platelet Count 372 # Mean Platelet Volume 9.3 Immature Granulocytes % 0.900 H Neutrophils % 87.7 H Lymphocytes % 8.5 L Monocytes % 2.7 Eosinophils % 0.0 Basophils % 0.2 Nucleated Red Blood Cells % 0.0 Immature Granulocytes # 0.080 H Neutrophils # 8.2 H Lymphocytes # 0.8 Monocytes # 0.3 Eosinophils # 0.0 Basophils # 0.0 Nucleated Red Blood Cells # 0.0 Sodium Level 142 Potassium Level 4.3 Chloride Level 105 Carbon Dioxide Level 29 Anion Gap 8 Blood Urea Nitrogen 19 Creatinine 0.65 Est Glomerular Filtrat Rate mL/min Glucose Level 115 Calcium Level 9.3 Exam/Review of Systems Vital Signs Vitals Vital Signs Date Temp Pulse Resp B/P (MAP) Pulse Ox O2 O2 Flow FiO2 Time Delivery Rate 11/29/18 Nasal 2.0 08:24 Cannula 11/29/18 71 08:00 11/29/18 98.3 18 132/75 99 07:24 (94) 11/28/18 28 20:56 Intake and Output 11/28/18 11/28/18 11/29/18 1515:00 23:00 07:00 IntakeIntake Total 50 ml 600 ml 500 ml BalanceBalance 50 ml 600 ml 500 ml Medications Medications Current Medications Albuterol/ Ipratropium (Duoneb) 3 ml Q2H RESP THERAPY PRN HHN shortness of breath; Start 11/26/18 at 19:00 Budesonide (Pulmicort (Neb)) 0.5 mg BID RESP THERAPY HHN Last administered on 11/28/18at 20:54; Admin Dose 0.5 MG; Start 11/26/18 at 20:00 Cefepime HCl 50 ml @ 100 mls/hr Q12 IVPB Last administered on 11/29/18 09:26; Admin Dose 100 MLS/HR; Start 11/26/18 at 21:00 IV Flush (NS 3 ml) 3 ml PER PROTOCOL IV ; Start 11/27/18 at 00:30 Ondansetron HCl (Zofran Inj) 4 mg Q6H PRN IV NAUSEA AND/OR VOMITING; Start 11/27/18 at 00:30 Nitroglycerin (Nitroglycerin (Sl Tab) 0.4 Mg) 1 tab Q5M PRN SL CHEST PAIN; Start 11/27/18 at 00:30 Acetaminophen (Tylenol Tab) 650 mg Q6H PRN PO PAIN LEVEL 1-3 OR FEVER; Start 11/27/18 at 00:30 Acetaminophen/ Hydrocodone Bitart ([place] (5/325)) 1 tab Q6H PRN PO PAIN LEVEL 4-6; Start 11/27/18 at 00:30 Acetaminophen/ Hydrocodone Bitart ([place] (5/325)) 2 tab Q6H PRN PO PAIN LEVEL 7-10; Start 11/27/18 at 00:30 Aspirin (Aspirin) 81 mg DAILY PO Last administered on 11/29/18 09:25; Admin Dose 81 MG; Start 11/27/18 at 09:00 Folic Acid (Folic Acid) 0.8 mg DAILY PO Last administered on 11/29/18 09:25; Admin Dose 0.8 MG; Start 11/27/18 at 09:00 Pantoprazole (Protonix Tab) 40 mg DAILY@0600 PO Last administered on 11/29/18 05:17; Admin Dose 40 MG; Start 11/27/18 at 06:00 Amlodipine Besylate (Norvasc) 10 mg DAILY PO Last administered on 11/29/18 09:25; Admin Dose 10 MG; Start 11/27/18 at 09:00 Levofloxacin/ Dextrose 100 ml @ 100 mls/hr DAILY@0600 IVPB Last administered on 11/29/18 05:17; Admin Dose 100 MLS/HR; Start 11/27/18 at 06:00 Fluticasone/ Vilanterol (Breo Ellipta 100-25 Mcg Inh) 1 inh DAILY INH ; Start 11/27/18 at 09:00; Status Hold Guaifenesin (Robitussin Liquid Cup) 200 mg Q4H PRN PO cough Last administered on 11/28/18 10:46; Admin Dose 200 MG; Start 11/27/18 at 16:30 Atorvastatin Calcium (Lipitor) 40 mg HS PO Last administered on 11/28/18 20:29; Admin Dose 40 MG; Start 11/27/18 at 21:00 Apixaban (Eliquis) 10 mg BID PO Last administered on 11/29/18 09:26; Admin Dose 10 MG; Start 11/28/18 at 21:00; Stop 12/05/18 at 20:59 Prednisone (Prednisone) 60 mg DAILY PO Last administered on 11/29/18 09:25; Admin Dose 60 MG; Start 11/28/18 at 12:00 Metoprolol Tartrate (Lopressor) 12.5 mg BID PO Last administered on 11/29/18 09:26; Admin Dose 12.5 MG; Start 11/28/18 at 21:00 CHET LINDSAY Nov 29, 2018 10:08
[2018-11-29] MEDS: BUDESONIDE (NEB) 0.5MG/2ML AMP HHN SCH ×2 (10:21→21:35)
--- NOTE | 2018-11-29 15:49 | CONS ---
Date/Time of Note Date/Time of Note DATE: 11/29/18 TIME: 15:44 Consult Date/Type/Reason Admit Date/Time Nov 26, 2018 at 18:26 Initial Consult Date 11/27/18 Subjective CARDIOLOGY FOLLOW UP NOTE S: D/W STAFF and physicians. tele was reviewed. pt remains in NSR pt WITH NO CHEST PAIN OR PRESSURE. NO dyspnea No bleeding is reported O: General: Elderly female in no acute distress HEENT: NC/AT. pupils are equal. round. NECK: NO JVD. no stridor. CV: RRR. systolic murmur; no gallop or rubs. PULM: no wheezing or rhonchi. GI: SOFT, NT, ND, no rebound or guarding Extremity: trace B/L LE edema. no clubbing. neuro: awake and alert, OX3. Psych: calm and pleasant rectal: deferred : normal CT of the chest showed: Study is limited for pulmonary emboli as a subsegmental pulmonary arteries are obscured with no visible central filling defects. There findings suggestive for pulmonary arterial hypertension. Prominent atherosclerotic disease. There is a solid appearing area of dense consolidation in the right upper lobe which appears to have increased from the prior exam worrisome for lung neoplasm or an area of dense infection. This can be further evaluated with biopsy or PET scan. Continued follow-up is recommended. Layering right effusion has developed which results in partial compressive atelectasis of the right lower lobe. Mild pulmonary edema is seen within the lung parenchyma. Objective Vital Signs Date Temp Pulse Resp B/P (MAP) Pulse Ox O2 O2 Flow FiO2 Time Delivery Rate 11/29/18 2.0 14:52 11/29/18 72 12:00 11/29/18 98.3 17 125/68 99 11:46 (87) 11/29/18 Simple 10:26 Mask 11/28/18 28 20:56 Intake and Output 11/28/18 11/28/18 11/29/18 1515:00 23:00 07:00 IntakeIntake Total 50 ml 600 ml 500 ml BalanceBalance 50 ml 600 ml 500 ml Results/Medications Result Diagram: 11/29/18 0525 11/29/18 0525 Results 24 hrs Laboratory Tests Test 11/29/18 05:25 White Blood Count 9.3 Red Blood Count 4.86 Hemoglobin 14.4 Hematocrit 44.0 Mean Corpuscular Volume 90.5 Mean Corpuscular Hemoglobin 29.6 Mean Corpuscular Hemoglobin Concent 32.7 Red Cell Distribution Width 13.1 Platelet Count 372 # Mean Platelet Volume 9.3 Immature Granulocytes % 0.900 H Neutrophils % 87.7 H Lymphocytes % 8.5 L Monocytes % 2.7 Eosinophils % 0.0 Basophils % 0.2 Nucleated Red Blood Cells % 0.0 Immature Granulocytes # 0.080 H Neutrophils # 8.2 H Lymphocytes # 0.8 Monocytes # 0.3 Eosinophils # 0.0 Basophils # 0.0 Nucleated Red Blood Cells # 0.0 Sodium Level 142 Potassium Level 4.3 Chloride Level 105 Carbon Dioxide Level 29 Anion Gap 8 Blood Urea Nitrogen 19 Creatinine 0.65 Est Glomerular Filtrat Rate mL/min Glucose Level 115 Calcium Level 9.3 Medications Current Medications Albuterol/ Ipratropium (Duoneb) 3 ml Q2H RESP THERAPY PRN HHN shortness of breath; Start 11/26/18 at 19:00 Budesonide (Pulmicort (Neb)) 0.5 mg BID RESP THERAPY HHN Last administered on 11/29/18at 10:21; Admin Dose 0.5 MG; Start 11/26/18 at 20:00 Cefepime HCl 50 ml @ 100 mls/hr Q12 IVPB Last administered on 11/29/18at 09:26; Admin Dose 100 MLS/HR; Start 11/26/18 at 21:00 IV Flush (NS 3 ml) 3 ml PER PROTOCOL IV ; Start 11/27/18 at 00:30 Ondansetron HCl (Zofran Inj) 4 mg Q6H PRN IV NAUSEA AND/OR VOMITING; Start 11/27/18 at 00:30 Nitroglycerin (Nitroglycerin (Sl Tab) 0.4 Mg) 1 tab Q5M PRN SL CHEST PAIN; Start 11/27/18 at 00:30 Acetaminophen (Tylenol Tab) 650 mg Q6H PRN PO PAIN LEVEL 1-3 OR FEVER; Start 11/27/18 at 00:30 Acetaminophen/ Hydrocodone Bitart ([place] (5/325)) 1 tab Q6H PRN PO PAIN LEVEL 4-6; Start 11/27/18 at 00:30 Acetaminophen/ Hydrocodone Bitart ([place] (5/325)) 2 tab Q6H PRN PO PAIN LEVEL 7-10; Start 11/27/18 at 00:30 Aspirin (Aspirin) 81 mg DAILY PO Last administered on 11/29/18 09:25; Admin Dose 81 MG; Start 11/27/18 at 09:00 Folic Acid (Folic Acid) 0.8 mg DAILY PO Last administered on 11/29/18 09:25; Admin Dose 0.8 MG; Start 11/27/18 at 09:00 Pantoprazole (Protonix Tab) 40 mg DAILY@0600 PO Last administered on 11/29/18 05:17; Admin Dose 40 MG; Start 11/27/18 at 06:00 Amlodipine Besylate (Norvasc) 10 mg DAILY PO Last administered on 11/29/18 09:25; Admin Dose 10 MG; Start 11/27/18 at 09:00 Fluticasone/ Vilanterol (Breo Ellipta 100-25 Mcg Inh) 1 inh DAILY INH ; Start 11/27/18 at 09:00; Status Hold Guaifenesin (Robitussin Liquid Cup) 200 mg Q4H PRN PO cough Last administered on 11/28/18 10:46; Admin Dose 200 MG; Start 11/27/18 at 16:30 Atorvastatin Calcium (Lipitor) 40 mg HS PO Last administered on 11/28/18 20:29; Admin Dose 40 MG; Start 11/27/18 at 21:00 Apixaban (Eliquis) 10 mg BID PO Last administered on 11/29/18 09:26; Admin Dose 10 MG; Start 11/28/18 at 21:00; Stop 12/05/18 at 20:59 Prednisone (Prednisone) 60 mg DAILY PO Last administered on 11/29/18 09:25; Admin Dose 60 MG; Start 11/28/18 at 12:00 Metoprolol Tartrate (Lopressor) 12.5 mg BID PO Last administered on 11/29/18 09:26; Admin Dose 12.5 MG; Start 11/28/18 at 21:00 Assessment/Plan Chief Complaint/Hosp Course Mildly abnormal troponin of unclear significance. Patient with no chest pain normal ejection fracture Superficial lower extremity vein thrombosis Pulmonary mass History of asthma Hypertension Dyslipidemia Recommendations: Anticoagulated will defer to pulmonary recommendation. Continue with low-dose beta-alonzo as tolerated Risk factor modification. Thank you for his referral. We will continue to follow along with you until Dr. Lisa returns on Saturday KYLE VIGIL MD [facility] KYLE VIGIL MD Nov 29, 2018 15:49
--- NOTE | 2018-11-29 15:51 | CONS ---
Date/Time of Note Date/Time of Note DATE: 11/29/18 TIME: 15:40 Assessment/Plan Assessment/Plan Assessment/Plan IMP: 1. 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 A review of a CT chest from 11/2015 shows a more subtle semi-solid lesion in the RUL. 2. 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 DVT 4. Query Asthma 5. Demand Ischemia 6. HTN heart Disease 7. Right pleural effusion RECS: 1. Transition to enoxaparin and off of NOAC 2. CT-guided biopsy next week 3. I don't believe the pleural effusion is likely to be malignant and tap will be low yield for malignancy work-up Result Diagram: 11/29/18 0525 11/29/18 0525 Results 24hrs Laboratory Tests Test 11/29/18 05:25 White Blood Count 9.3 Red Blood Count 4.86 Hemoglobin 14.4 Hematocrit 44.0 Mean Corpuscular Volume 90.5 Mean Corpuscular Hemoglobin 29.6 Mean Corpuscular Hemoglobin Concent 32.7 Red Cell Distribution Width 13.1 Platelet Count 372 # Mean Platelet Volume 9.3 Immature Granulocytes % 0.900 H Neutrophils % 87.7 H Lymphocytes % 8.5 L Monocytes % 2.7 Eosinophils % 0.0 Basophils % 0.2 Nucleated Red Blood Cells % 0.0 Immature Granulocytes # 0.080 H Neutrophils # 8.2 H Lymphocytes # 0.8 Monocytes # 0.3 Eosinophils # 0.0 Basophils # 0.0 Nucleated Red Blood Cells # 0.0 Sodium Level 142 Potassium Level 4.3 Chloride Level 105 Carbon Dioxide Level 29 Anion Gap 8 Blood Urea Nitrogen 19 Creatinine 0.65 Est Glomerular Filtrat Rate mL/min Glucose Level 115 Calcium Level 9.3 Consultation Date/Type/Reason Admit Date/Time Nov 26, 2018 at 18:26 Type of Consult Pulm Reason for Consultation Lung mass Hx of Present Illness In brief, this is an 88-year-old [place]og speaking female with a query history of asthma who presents the ER complaining of shortness of breath and cough. Cough has been dry for the most part. Denied chest pain, nausea/vomiting or abdominal pain. When presented to ER, temp was 99.8 and she was tachycardic. Upon admission, she had elevated SBP and a troponin leak. Constitutional: no complaints Eyes: no complaints ENT: no complaints Respiratory: cough, sputum Cardiovascular: no complaints Gastrointestinal: no complaints Genitourinary: no complaints Musculoskeletal: no complaints Skin: no complaints Neurologic: no complaints Endocrine: no complaints Lymphatic: no complaints Psychological: no complaints Past Medical History Medical History: hypertension, other Medications Current Medications Albuterol/ Ipratropium (Duoneb) 3 ml Q2H RESP THERAPY PRN HHN shortness of breath; Start 11/26/18 at 19:00 Budesonide (Pulmicort (Neb)) 0.5 mg BID RESP THERAPY HHN Last administered on 11/29/18at 10:21; Admin Dose 0.5 MG; Start 11/26/18 at 20:00 Cefepime HCl 50 ml @ 100 mls/hr Q12 IVPB Last administered on 11/29/18 09:26; Admin Dose 100 MLS/HR; Start 11/26/18 at 21:00 IV Flush (NS 3 ml) 3 ml PER PROTOCOL IV ; Start 11/27/18 at 00:30 Ondansetron HCl (Zofran Inj) 4 mg Q6H PRN IV NAUSEA AND/OR VOMITING; Start 11/27/18 at 00:30 Nitroglycerin (Nitroglycerin (Sl Tab) 0.4 Mg) 1 tab Q5M PRN SL CHEST PAIN; Start 11/27/18 at 00:30 Acetaminophen (Tylenol Tab) 650 mg Q6H PRN PO PAIN LEVEL 1-3 OR FEVER; Start 11/27/18 at 00:30 Acetaminophen/ Hydrocodone Bitart ([place] (5/325)) 1 tab Q6H PRN PO PAIN LEVEL 4-6; Start 11/27/18 at 00:30 Acetaminophen/ Hydrocodone Bitart ([place] (5/325)) 2 tab Q6H PRN PO PAIN LEVEL 7-10; Start 11/27/18 at 00:30 Aspirin (Aspirin) 81 mg DAILY PO Last administered on 11/29/18at 09:25; Admin Dose 81 MG; Start 11/27/18 at 09:00 Folic Acid (Folic Acid) 0.8 mg DAILY PO Last administered on 11/29/18at 09:25; Admin Dose 0.8 MG; Start 11/27/18 at 09:00 Pantoprazole (Protonix Tab) 40 mg DAILY@0600 PO Last administered on 11/29/18 05:17; Admin Dose 40 MG; Start 11/27/18 at 06:00 Amlodipine Besylate (Norvasc) 10 mg DAILY PO Last administered on 11/29/18 09:25; Admin Dose 10 MG; Start 11/27/18 at 09:00 Fluticasone/ Vilanterol (Breo Ellipta 100-25 Mcg Inh) 1 inh DAILY INH ; Start 11/27/18 at 09:00; Status Hold Guaifenesin (Robitussin Liquid Cup) 200 mg Q4H PRN PO cough Last administered on 11/28/18 10:46; Admin Dose 200 MG; Start 11/27/18 at 16:30 Atorvastatin Calcium (Lipitor) 40 mg HS PO Last administered on 11/28/18 20:29; Admin Dose 40 MG; Start 11/27/18 at 21:00 Apixaban (Eliquis) 10 mg BID PO Last administered on 11/29/18 09:26; Admin Dose 10 MG; Start 11/28/18 at 21:00; Stop 12/05/18 at 20:59 Prednisone (Prednisone) 60 mg DAILY PO Last administered on 11/29/18 09:25; Admin Dose 60 MG; Start 11/28/18 at 12:00 Metoprolol Tartrate (Lopressor) 12.5 mg BID PO Last administered on 11/29/18 09:26; Admin Dose 12.5 MG; Start 11/28/18 at 21:00 Allergies: Coded Allergies: Sulfa (Sulfonamide Antibiotics) (Unverified Allergy, Severe, RASH, 11/26/18) Past Surgical History Past Surgical Hx: no surgical history Family History Significant Family History: no pertinent family hx Social History Alcohol Use: none Smoking Status: Never smoker Drug Use: none Exam/Review of Systems Vital Signs Vitals Vital Signs Date Temp Pulse Resp B/P (MAP) Pulse Ox O2 O2 Flow FiO2 Time Delivery Rate 11/29/18 2.0 14:52 11/29/18 72 12:00 11/29/18 98.3 17 125/68 99 11:46 (87) 11/29/18 Simple 10:26 Mask 11/28/18 28 20:56 Intake and Output 11/28/18 11/28/1819 1515:00 23:00 07:00 IntakeIntake Total 50 ml 600 ml 500 ml BalanceBalance 50 ml 600 ml 500 ml Exam Constitutional: alert, oriented, well developed Psych: no complaints, nl mood/affect Head: normocephalic, atraumatic Eyes: nl conjunctiva, EOMI, nl lids, nl sclera ENMT: nl external ears & nose, nl lips & teeth, nl nasal mucosa & septum Neck: supple, non-tender, jvd Respiratory: diminished breath sounds Cardiovascular: regular rate and rhythm, nl pulses Gastrointestinal: soft, nl liver, spleen, non-tender Musculoskeletal: nl extremities to inspection Extremities: normal pulses 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: [employer] II-XII intact, nl mental status, DTR's symmetric Medications Medications Current Medications Albuterol/ Ipratropium (Duoneb) 3 ml Q2H RESP THERAPY PRN HHN shortness of breath; Start 11/26/18 at 19:00 Budesonide (Pulmicort (Neb)) 0.5 mg BID RESP THERAPY HHN Last administered on 11/29/18at 10:21; Admin Dose 0.5 MG; Start 11/26/18 at 20:00 Cefepime HCl 50 ml @ 100 mls/hr Q12 IVPB Last administered on 11/29/18at 09:26; Admin Dose 100 MLS/HR; Start 11/26/18 at 21:00 IV Flush (NS 3 ml) 3 ml PER PROTOCOL IV ; Start 11/27/18 at 00:30 Ondansetron HCl (Zofran Inj) 4 mg Q6H PRN IV NAUSEA AND/OR VOMITING; Start 11/27/18 at 00:30 Nitroglycerin (Nitroglycerin (Sl Tab) 0.4 Mg) 1 tab Q5M PRN SL CHEST PAIN; Start 11/27/18 at 00:30 Acetaminophen (Tylenol Tab) 650 mg Q6H PRN PO PAIN LEVEL 1-3 OR FEVER; Start 11/27/18 at 00:30 Acetaminophen/ Hydrocodone Bitart ([place] (5/325)) 1 tab Q6H PRN PO PAIN LEVEL 4-6; Start 11/27/18 at 00:30 Acetaminophen/ Hydrocodone Bitart ([place] (5/325)) 2 tab Q6H PRN PO PAIN LEVEL 7-10; Start 11/27/18 at 00:30 Aspirin (Aspirin) 81 mg DAILY PO Last administered on 11/29/18 09:25; Admin Dose 81 MG; Start 11/27/18 at 09:00 Folic Acid (Folic Acid) 0.8 mg DAILY PO Last administered on 11/29/18 09:25; Admin Dose 0.8 MG; Start 11/27/18 at 09:00 Pantoprazole (Protonix Tab) 40 mg DAILY@0600 PO Last administered on 11/29/18 05:17; Admin Dose 40 MG; Start 11/27/18 at 06:00 Amlodipine Besylate (Norvasc) 10 mg DAILY PO Last administered on 11/29/18 09:25; Admin Dose 10 MG; Start 11/27/18 at 09:00 Fluticasone/ Vilanterol (Breo Ellipta 100-25 Mcg Inh) 1 inh DAILY INH ; Start 11/27/18 at 09:00; Status Hold Guaifenesin (Robitussin Liquid Cup) 200 mg Q4H PRN PO cough Last administered on 11/28/18 10:46; Admin Dose 200 MG; Start 11/27/18 at 16:30 Atorvastatin Calcium (Lipitor) 40 mg HS PO Last administered on 11/28/18 20:29; Admin Dose 40 MG; Start 11/27/18 at 21:00 Apixaban (Eliquis) 10 mg BID PO Last administered on 11/29/18 09:26; Admin Dose 10 MG; Start 11/28/18 at 21:00; Stop 12/05/18 at 20:59 Prednisone (Prednisone) 60 mg DAILY PO Last administered on 11/29/18 09:25; Admin Dose 60 MG; Start 11/28/18 at 12:00 Metoprolol Tartrate (Lopressor) 12.5 mg BID PO Last administered on 11/29/18 09:26; Admin Dose 12.5 MG; Start 11/28/18 at 21:00 LEXY FARAH MD Nov 29, 2018 15:51
[2018-11-29] MEDS: ATORVASTATIN 40 MG TAB PO SCH (20:24)
[2018-11-30] VITALS (12 sets, daily range): BP systolic 106–137; BP diastolic 54–75; PULSE 57–85; RESP 17–18
[2018-11-30] MEDS: PANTOPRAZOLE (EC) 40 MG TAB PO SCH (05:13)
[2018-11-30] MEDS: CEFEPIME 1GM/50 ML (PMX) 50 ML IVPB SCH ×2 (08:11→20:25)
[2018-11-30] MEDS: ASPIRIN 81 MG TAB PO SCH (08:15)
[2018-11-30] MEDS: METOPROLOL 25 MG TAB PO SCH ×2 (08:15→20:24)
[2018-11-30] MEDS: predniSONE 20 MG TAB PO SCH (08:15)
[2018-11-30] MEDS: AMLODIPINE 10 MG TAB PO SCH (08:15)
[2018-11-30] MEDS: FOLIC ACID 0.4 MG TAB PO SCH (08:16)
[2018-11-30] MEDS: ENOXAPARIN 60 MG/0.6 ML SYG SC SCH ×2 (08:23→20:35)
[2018-11-30] MEDS: BUDESONIDE (NEB) 0.5MG/2ML AMP HHN SCH ×2 (10:47→21:00)
--- NOTE | 2018-11-30 11:45 | PN ---
Date/Time of Note Date/Time of Note DATE: 11/30/18 TIME: 11:42 Assessment/Plan VTE Prophylaxis Risk score (from Ns)>0 risk: 7 SCD applied (from [facility] [place]): No SCD contraindicated: other Pharmacological prophylaxis: LMWH Lines/Catheters IV Catheter Type (from [facility]): Saline Lock Urinary Cath still in place: No Assessment/Plan Hospital Course S: Patient has less shortness of breath symptoms overall, switch to Lovenox, seen by cardiology pulmonary team yesterday. Now awaiting possible biopsy of the right upper lobe lung lesion found on imaging studies. O: VS - see below PE: Gen: No acute distress, lying in bed Head: Atraumatic Eyes: Normal Conjunctiva ENT: Normal External Ears, Nose and Mouth. Neck: Supple Resp: No tachypnea. No retractions. Less wheezes and crackles heard at the bases bilaterally Cardio: Regular rate and rhythm, no murmurs Abd: Soft, non tender, non distended. Normal bowel sounds Ext: No LE edema B/L Neur: no focal deficits 2D echo: Conclusions Normal left ventricular systolic function. Normal left ventricular cavity size. Left ventricular wall thickness upper limits of normal. Ejection fraction is visually estimated at 65 %. Tissue Doppler/Mitral Doppler indices are consistent with impaired relaxation (Stage I diastolic dysfunction). Normal right ventricular size. Normal right ventricular systolic function. The left atrium is normal in size. The right atrium is normal in size. Normal appearance of the tricuspid valve. Estimated peak PA systolic pressure 55 mmHg. There is mild tricuspid regurgitation. No significant valvular stenosis or regurgitation seen of remaining visualized valves. Normal pericardium with no significant pericardial effusion. CTA chest: IMPRESSION: Study is limited for pulmonary emboli as a subsegmental pulmonary arteries are obscured with no visible central filling defects. There findings suggestive for pulmonary arterial hypertension. Prominent atherosclerotic disease. There is a solid appearing area of dense consolidation in the right upper lobe which appears to have increased from the prior exam worrisome for lung neoplasm or an area of dense infection. This can be further evaluated with biopsy or PET scan. Continued follow-up is recommended. Layering right effusion has developed which results in partial compressive atelectasis of the right lower lobe. Mild pulmonary edema is seen within the lung parenchyma. Assessment/Plan: 88-year-old female who presents with: 1. Asthma exacerbation -symptoms slowly improving. -For now continue supplemental oxygen, bronchodilators, steroid -Follow-up pulmonary recommendations -Continue PT and OT 2. Positive troponin, possibly type II NSTEMI. Patient presently on Lovenox treatment dose. -For now continue supplemental oxygen, aspirin. As needed nitro -Also continue to trend troponin -Follow-up recs from cardiology consult 3. Probable pneumonia: Found on chest x-ray -slowly improving. Of note CTA chest results noted. 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 However they are recommending CT-guided biopsy of the lesion, discussed with family and they agreed to proceed with this for now. Of note they did state that the patient has been having some 10 pound weight loss over the last month, occasional hemoptysis, occasional night sweats. 4. Peroneal vein blood clots: Present on lower extremity ultrasound - Per cardiology recommendations, started on Eliquis for that, bc per them even though patient with superficial thrombi, would strongly consider anticoagulation treatment to prevent recurrence as well as post thrombotic syndrome - this now switched to Lovenox subcu twice daily, continue for now Result Diagram: 11/29/1852411/29/18 05 Exam/Review of Systems Vital Signs Vitals Vital Signs Date Temp Pulse Resp B/P (MAP) Pulse Ox O2 O2 Flow FiO2 Time Delivery Rate 11/30/18 98.5 66 17 114/69 94 11:21 (84) 11/30/18 21 10:48 11/30/18 Nasal 2.0 09:05 Cannula Intake and Output 11/29/18 11/29/18 11/30/18 1515:00 23:00 07:00 IntakeIntake Total 850 ml 480 ml BalanceBalance 850 ml 480 ml Medications Medications Current Medications Albuterol/ Ipratropium (Duoneb) 3 ml Q2H RESP THERAPY PRN HHN shortness of breath; Start 11/26/18 at 19:00 Budesonide (Pulmicort (Neb)) 0.5 mg BID RESP THERAPY HHN Last administered on 11/30/18at 10:47; Admin Dose 0.5 MG; Start 11/26/18 at 20:00 Cefepime HCl 50 ml @ 100 mls/hr Q12 IVPB Last administered on 11/30/18at 08:11; Admin Dose 100 MLS/HR; Start 11/26/18 at 21:00 IV Flush (NS 3 ml) 3 ml PER PROTOCOL IV ; Start 11/27/18 at 00:30 Ondansetron HCl (Zofran Inj) 4 mg Q6H PRN IV NAUSEA AND/OR VOMITING; Start 11/27/18 at 00:30 Nitroglycerin (Nitroglycerin (Sl Tab) 0.4 Mg) 1 tab Q5M PRN SL CHEST PAIN; Start 11/27/18 at 00:30 Acetaminophen (Tylenol Tab) 650 mg Q6H PRN PO PAIN LEVEL 1-3 OR FEVER; Start 11/27/18 at 00:30 Acetaminophen/ Hydrocodone Bitart ([place] (5/325)) 1 tab Q6H PRN PO PAIN LEVEL 4-6; Start 11/27/18 at 00:30 Acetaminophen/ Hydrocodone Bitart ([place] (5/325)) 2 tab Q6H PRN PO PAIN LEVEL 7-10 Last administered on 11/29/18at 20:24; Admin Dose 2 TAB; Start 11/27/18 at 00:30 Aspirin (Aspirin) 81 mg DAILY PO Last administered on 11/30/18at 08:15; Admin Dose 81 MG; Start 11/27/18 at 09:00 Folic Acid (Folic Acid) 0.8 mg DAILY PO Last administered on 11/30/18at 08:16; Admin Dose 0.8 MG; Start 11/27/18 at 09:00 Pantoprazole (Protonix Tab) 40 mg DAILY@0600 PO Last administered on 11/30/18at 05:13; Admin Dose 40 MG; Start 11/27/18 at 06:00 Amlodipine Besylate (Norvasc) 10 mg DAILY PO Last administered on 11/30/18at 08:15; Admin Dose 10 MG; Start 11/27/18 at 09:00 Fluticasone/ Vilanterol (Breo Ellipta 100-25 Mcg Inh) 1 inh DAILY INH ; Start 11/27/18 at 09:00; Status Hold Guaifenesin (Robitussin Liquid Cup) 200 mg Q4H PRN PO cough Last administered on 11/28/18at 10:46; Admin Dose 200 MG; Start 11/27/18 at 16:30 Atorvastatin Calcium (Lipitor) 40 mg HS PO Last administered on 1/5/19at 20:24; Admin Dose 40 MG; Start 11/27/18 at 21:00 Prednisone (Prednisone) 60 mg DAILY PO Last administered on 11/30/18 08:15; Admin Dose 60 MG; Start 11/28/18 at 12:00 Metoprolol Tartrate (Lopressor) 12.5 mg BID PO Last administered on 11/30/18 08:15; Admin Dose 12.5 MG; Start 11/28/18 at 21:00 Enoxaparin Sodium (Lovenox) 50 mg Q12 SC Last administered on 11/30/18at 08:23; Admin Dose 50 MG; Start 11/30/18 at 09:00 CHET LINDSAY Nov 30, 2018 11:45
--- NOTE | 2018-11-30 13:18 | CONS ---
Date/Time of Note Date/Time of Note DATE: 11/30/18 TIME: 13:16 Consult Date/Type/Reason Admit Date/Time Nov 26, 2018 at 18:26 Initial Consult Date 11/27/18 Type of Consultation: Pulm Subjective No events overnight. Feeling better today. Objective Vital Signs Date Temp Pulse Resp B/P (MAP) Pulse Ox O2 O2 Flow FiO2 Time Delivery Rate 11/30/18 98.5 66 17 114/69 94 11:21 (84) 11/30/18 21 10:48 11/30/18 Nasal 2.0 09:05 Cannula Intake and Output 11/29/18 11/29/18 11/30/18 1515:00 23:00 07:00 IntakeIntake Total 850 ml 480 ml BalanceBalance 850 ml 480 ml Exam HEENT: Neck supple; no JVD; no LAD CVS: RRR, S1 and S2 CHEST: Coarse BS R>L ABD: Soft, NT, + BS EXT: No c/c/e Results/Medications Result Diagram: 11/29/18 0525 11/29/1825 Medications Current Medications Albuterol/ Ipratropium (Duoneb) 3 ml Q2H RESP THERAPY PRN HHN shortness of breath; Start 11/26/18 at 19:00 Budesonide (Pulmicort (Neb)) 0.5 mg BID RESP THERAPY HHN Last administered on 11/30/18at 10:47; Admin Dose 0.5 MG; Start 11/26/18 at 20:00 Cefepime HCl 50 ml @ 100 mls/hr Q12 IVPB Last administered on 11/30/18at 08:11; Admin Dose 100 MLS/HR; Start 11/26/18 at 21:00 IV Flush (NS 3 ml) 3 ml PER PROTOCOL IV ; Start 11/27/18 at 00:30 Ondansetron HCl (Zofran Inj) 4 mg Q6H PRN IV NAUSEA AND/OR VOMITING; Start 11/27/18 at 00:30 Nitroglycerin (Nitroglycerin (Sl Tab) 0.4 Mg) 1 tab Q5M PRN SL CHEST PAIN; Start 11/27/18 at 00:30 Acetaminophen (Tylenol Tab) 650 mg Q6H PRN PO PAIN LEVEL 1-3 OR FEVER; Start 11/27/18 at 00:30 Acetaminophen/ Hydrocodone Bitart ([place] (5/325)) 1 tab Q6H PRN PO PAIN LEVEL 4-6; Start 11/27/18 at 00:30 Acetaminophen/ Hydrocodone Bitart ([place] (5/325)) 2 tab Q6H PRN PO PAIN LEVEL 7-10 Last administered on 11/29/18 20:24; Admin Dose 2 TAB; Start 11/27/18 at 00:30 Aspirin (Aspirin) 81 mg DAILY PO Last administered on 11/30/18 08:15; Admin Dose 81 MG; Start 11/27/18 at 09:00 Folic Acid (Folic Acid) 0.8 mg DAILY PO Last administered on 11/30/18 08:16; Admin Dose 0.8 MG; Start 11/27/18 at 09:00 Pantoprazole (Protonix Tab) 40 mg DAILY@0600 PO Last administered on 11/30/18 05:13; Admin Dose 40 MG; Start 11/27/18 at 06:00 Amlodipine Besylate (Norvasc) 10 mg DAILY PO Last administered on 11/30/18 08:15; Admin Dose 10 MG; Start 11/27/18 at 09:00 Fluticasone/ Vilanterol (Breo Ellipta 100-25 Mcg Inh) 1 inh DAILY INH ; Start 11/27/18 at 09:00; Status Hold Guaifenesin (Robitussin Liquid Cup) 200 mg Q4H PRN PO cough Last administered on 11/28/18 10:46; Admin Dose 200 MG; Start 11/27/18 at 16:30 Atorvastatin Calcium (Lipitor) 40 mg HS PO Last administered on 11/29/18 20:24; Admin Dose 40 MG; Start 11/27/18 at 21:00 Prednisone (Prednisone) 60 mg DAILY PO Last administered on 11/30/18 08:15; Admin Dose 60 MG; Start 11/28/18 at 12:00 Metoprolol Tartrate (Lopressor) 12.5 mg BID PO Last administered on 11/30/18 08:15; Admin Dose 12.5 MG; Start 11/28/18 at 21:00 Enoxaparin Sodium (Lovenox) 50 mg Q12 SC Last administered on 11/30/18 08:23; Admin Dose 50 MG; Start 11/30/18 at 09:00 Assessment/Plan Chief Complaint/Hosp Course In brief, this is an 88-year-old Tagalog speaking female with a query history of asthma who presents the ER complaining of shortness of breath and cough. Cough has been dry for the most part. Denied chest pain, nausea/vomiting or abdominal pain. When presented to ER, temp was 99.8 and she was tachycardic. Upon admission, she had elevated SBP and a troponin leak. Additional Assessment/Plan IMP: 1. 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 A review of a CT chest from 11/2015 shows a more subtle semi-solid lesion in the RUL. 2. 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 DVT 4. Query Asthma 5. Demand Ischemia 6. HTN heart Disease 7. Right pleural effusion RECS: 1. Continue enoxaparin 2. CT-guided biopsy next week LEXY FARAH MD Nov 30, 2018 13:18
--- NOTE | 2018-11-30 16:19 | CONS ---
Date/Time of Note Date/Time of Note DATE: 11/30/18 TIME: 16:16 Consult Date/Type/Reason Admit Date/Time Nov 26, 2018 at 18:26 Initial Consult Date 11/27/18 Type of Consultation: cv Subjective CARDIOLOGY FOLLOW UP NOTE S: D/W STAFF and physicians. tele was reviewed. pt remains in NSR pt WITH NO CHEST PAIN OR PRESSURE. NO dyspnea but c/o cough No bleeding is reported O: General: Elderly female in no acute distress HEENT: NC/AT. pupils are equal. round. NECK: NO JVD. no stridor. CV: RRR. systolic murmur; no gallop or rubs. PULM: no wheezing or rhonchi. GI: SOFT, NT, ND, no rebound or guarding Extremity: trace B/L LE edema. no clubbing. neuro: awake and alert, OX3. Psych: calm and pleasant rectal: deferred : normal CT of the chest showed: Study is limited for pulmonary emboli as a subsegmental pulmonary arteries are obscured with no visible central filling defects. There findings suggestive for pulmonary arterial hypertension. Prominent atherosclerotic disease. There is a solid appearing area of dense consolidation in the right upper lobe which appears to have increased from the prior exam worrisome for lung neoplasm or an area of dense infection. This can be further evaluated with biopsy or PET scan. Continued follow-up is recommended. Layering right effusion has developed which results in partial compressive atelectasis of the right lower lobe. Mild pulmonary edema is seen within the lung parenchyma. Objective Vital Signs Date Temp Pulse Resp B/P (MAP) Pulse Ox O2 O2 Flow FiO2 Time Delivery Rate 11/30/18 98.2 85 18 137/72 94 15:34 (93) 11/30/18 2.0 13:47 11/30/18 21 10:48 11/30/18 Nasal 09:05 Cannula Intake and Output 11/29/18 11/29/18 11/30/18 1515:00 23:00 07:00 IntakeIntake Total 850 ml 480 ml BalanceBalance 850 ml 480 ml Results/Medications Result Diagram: 11/29/18 0525 11/29/18 0525 Medications Current Medications Albuterol/ Ipratropium (Duoneb) 3 ml Q2H RESP THERAPY PRN HHN shortness of breath; Start 11/26/18 at 19:00 Budesonide (Pulmicort (Neb)) 0.5 mg BID RESP THERAPY HHN Last administered on 11/30/18at 10:47; Admin Dose 0.5 MG; Start 11/26/18 at 20:00 Cefepime HCl 50 ml @ 100 mls/hr Q12 IVPB Last administered on 11/30/18at 08:11; Admin Dose 100 MLS/HR; Start 11/26/18 at 21:00 IV Flush (NS 3 ml) 3 ml PER PROTOCOL IV ; Start 11/27/18 at 00:30 Ondansetron HCl (Zofran Inj) 4 mg Q6H PRN IV NAUSEA AND/OR VOMITING; Start 11/27/18 at 00:30 Nitroglycerin (Nitroglycerin (Sl Tab) 0.4 Mg) 1 tab Q5M PRN SL CHEST PAIN; Start 11/27/18 at 00:30 Acetaminophen (Tylenol Tab) 650 mg Q6H PRN PO PAIN LEVEL 1-3 OR FEVER; Start 11/27/18 at 00:30 Acetaminophen/ Hydrocodone Bitart ([place] (5/325)) 1 tab Q6H PRN PO PAIN LEVEL 4-6; Start 11/27/18 at 00:30 Acetaminophen/ Hydrocodone Bitart ([place] (5/325)) 2 tab Q6H PRN PO PAIN LEVEL 7-10 Last administered on 11/29/18at 20:24; Admin Dose 2 TAB; Start 11/27/18 at 00:30 Aspirin (Aspirin) 81 mg DAILY PO Last administered on 11/30/18at 08:15; Admin Dose 81 MG; Start 11/27/18 at 09:00 Folic Acid (Folic Acid) 0.8 mg DAILY PO Last administered on 11/30/18 08:16; Admin Dose 0.8 MG; Start 11/27/18 at 09:00 Pantoprazole (Protonix Tab) 40 mg DAILY@0600 PO Last administered on 11/30/18at 05:13; Admin Dose 40 MG; Start 11/27/18 at 06:00 Amlodipine Besylate (Norvasc) 10 mg DAILY PO Last administered on 11/30/18at 08:15; Admin Dose 10 MG; Start 11/27/18 at 09:00 Fluticasone/ Vilanterol (Breo Ellipta 100-25 Mcg Inh) 1 inh DAILY INH ; Start 11/27/18 at 09:00; Status Hold Guaifenesin (Robitussin Liquid Cup) 200 mg Q4H PRN PO cough Last administered on 11/28/18at 10:46; Admin Dose 200 MG; Start 11/27/18 at 16:30 Atorvastatin Calcium (Lipitor) 40 mg HS PO Last administered on 11/29/18 20:24; Admin Dose 40 MG; Start 11/27/18 at 21:00 Prednisone (Prednisone) 60 mg DAILY PO Last administered on 11/30/18at 08:15; Admin Dose 60 MG; Start 11/28/18 at 12:00 Metoprolol Tartrate (Lopressor) 12.5 mg BID PO Last administered on 11/30/18 08:15; Admin Dose 12.5 MG; Start 11/28/18 at 21:00 Enoxaparin Sodium (Lovenox) 50 mg Q12 SC Last administered on 11/30/18 08:23; Admin Dose 50 MG; Start 11/30/18 at 09:00 Assessment/Plan Chief Complaint/Hosp Course Mildly abnormal troponin of unclear significance. Patient with no chest pain normal ejection fracture Superficial lower extremity vein thrombosis Pulmonary mass History of asthma Hypertension Dyslipidemia Recommendations: Anticoagulated will defer to pulmonary recommendation. on lovenox now Continue with low-dose beta-alonzo as tolerated steroid as per pulm rec Risk factor modification. Thank you for his referral. We will continue to follow along with you until Dr. Hughes returns on Saturday KYLE VIGIL MD [facility] KYLE VIGIL MD Nov 30, 2018 16:19
[2018-11-30] MEDS: ATORVASTATIN 40 MG TAB PO SCH (20:24)
[2018-11-30] MEDS: ALBUTEROL/IPRATROPIUM (NEB) 3 ML AMP HHN PRN (21:00)
[2018-12-01] VITALS (12 sets, daily range): BP systolic 122–164; BP diastolic 60–84; PULSE 69–100; RESP 18–22
[2018-12-01] MEDS: PANTOPRAZOLE (EC) 40 MG TAB PO SCH (05:23)
[2018-12-01] MEDS: CEFEPIME 1GM/50 ML (PMX) 50 ML IVPB SCH ×2 (08:32→20:53)
[2018-12-01] MEDS: AMLODIPINE 10 MG TAB PO SCH (08:32)
[2018-12-01] MEDS: FOLIC ACID 0.4 MG TAB PO SCH (08:33)
[2018-12-01] MEDS: predniSONE 20 MG TAB PO SCH (08:33)
[2018-12-01] MEDS: ASPIRIN 81 MG TAB PO SCH (08:34)
[2018-12-01] MEDS: METOPROLOL 25 MG TAB PO SCH ×2 (08:34→20:57)
[2018-12-01] MEDS: ENOXAPARIN 60 MG/0.6 ML SYG SC SCH ×2 (08:35→20:59)
[2018-12-01] MEDS: ALBUTEROL/IPRATROPIUM (NEB) 3 ML AMP HHN PRN ×2 (09:09→09:10)
[2018-12-01] MEDS: BUDESONIDE (NEB) 0.5MG/2ML AMP HHN SCH ×2 (09:10→20:46)
--- NOTE | 2018-12-01 10:48 | CONS ---
Date/Time of Note Date/Time of Note DATE: 12/01/18 TIME: 10:45 Assessment/Plan Assessment/Plan Assessment/Plan Assessment and recommendations; 1. Patient admitted with asthma exacerbation discovered to have a right upper lobe lung mass as well as areas of bronchiectasis. Also there is a right pleural effusion. Etiology is uncertain at this point. 2. Significant improvement in asthma symptoms. 3. Bilateral lower extremity DVT. 4. History of hypertension. Decrease prednisone to 30 mg daily. Patient scheduled for CT biopsy of lung mass. Continue anticoagulations post biopsy. Further recommendations once bi opsy results are obtained. Owing to patient's advanced age, if the biopsy shows lung malignancy patient will not be a candidate for any kind of treatment. Result Diagram: 11/29/18 0525 11/29/18 0525 Consultation Date/Type/Reason Admit Date/Time Nov 26, 2018 at 18:26 Initial Consult Date 11/27/18 Type of Consult Pulmonary Reason for Consultation Patient's condition is fairly stable. Denies any further wheezing, cough is a very scant cough without any sputum production. Denies any hemoptysis. Any chest pain. General exam; elderly female, awake alert, currently in no distress. Exam/Review of Systems Vital Signs Vitals Vital Signs Date Temp Pulse Resp B/P (MAP) Pulse Ox O2 O2 Flow FiO2 Time Delivery Rate 12/01/18 75 20 95 21 09:20 12/01/18 97.9 164/81 07:34 (108) 11/30/18 Nasal 2.0 20:01 Cannula Intake and Output 11/30/18 11/30/18 12/01/18 1515:00 23:00 07:00 IntakeIntake Total 650 ml 480 ml BalanceBalance 650 ml 480 ml Exam H EENT exam; supple neck, no JVD. No lymphadenopathy. Midline trachea. No thyromegaly. Patient is edentulous and wears dentures. No neck masses. Chest exam; diminished but clear breath sounds. S1-S2 audible, no murmurs. Regular rhythm. Abdomen exam; soft, no organomegaly. Bowel sounds audible. Extremity exam; no edema or clubbing. [employer] exam; no focal deficit. Medications Medications Current Medications Albuterol/ Ipratropium (Duoneb) 3 ml Q2H RESP THERAPY PRN HHN shortness of breath Last administered on 12/01/18at 09:10; Admin Dose 3 ML; Start 11/26/18 at 19:00 Budesonide (Pulmicort (Neb)) 0.5 mg BID RESP THERAPY HHN Last administered on 12/01/18 09:10; Admin Dose 0.5 MG; Start 11/26/18 at 20:00 Cefepime HCl 50 ml @ 100 mls/hr Q12 IVPB Last administered on 12/01/18 08:32; Admin Dose 100 MLS/HR; Start 11/26/18 at 21:00 IV Flush (NS 3 ml) 3 ml PER PROTOCOL IV ; Start 11/27/18 at 00:30 Ondansetron HCl (Zofran Inj) 4 mg Q6H PRN IV NAUSEA AND/OR VOMITING; Start 11/27/18 at 00:30 Nitroglycerin (Nitroglycerin (Sl Tab) 0.4 Mg) 1 tab Q5M PRN SL CHEST PAIN; Start 11/27/18 at 00:30 Acetaminophen (Tylenol Tab) 650 mg Q6H PRN PO PAIN LEVEL 1-3 OR FEVER; Start 11/27/18 at 00:30 Acetaminophen/ Hydrocodone Bitart ([place] (5/325)) 1 tab Q6H PRN PO PAIN LEVEL 4-6; Start 11/27/18 at 00:30 Acetaminophen/ Hydrocodone Bitart ([place] (5/325)) 2 tab Q6H PRN PO PAIN LEVEL 7 -10 Last administered on 11/29/18 20:24; Admin Dose 2 TAB; Start 11/27/18 at 00:30 Aspirin (Aspirin) 81 mg DAILY PO Last administered on 11/30/18 08:15; Admin Dose 81 MG; Start 11/27/18 at 09:00 Folic Acid (Folic Acid) 0.8 mg DAILY PO Last administered on 12/01/18 08:33; Admin Dose 0.8 MG; Start 11/27/18 at 09:00 Pantoprazole (Protonix Tab) 40 mg DAILY@0600 PO Last administered on 12/01/18 05:23; Admin Dose 40 MG; Start 11/27/18 at 06:00 Amlodipine Besylate (Norvasc) 10 mg DAILY PO Last administered on 12/01/18 08:32; Admin Dose 10 MG; Start 1/3/19 at 09:00 Fluticasone/ Vilanterol (Breo Ellipta 100-25 Mcg Inh) 1 inh DAILY INH ; Start 11/27/18 at 09:00; Status Hold Guaifenesin (Robitussin Liquid Cup) 200 mg Q4H PRN PO cough Last administered on 11/28/18at 10:46; Admin Dose 200 MG; Start 11/27/18 at 16:30 Atorvastatin Calcium (Lipitor) 40 mg HS PO Last administered on 11/30/18at 20:24; Admin Dose 40 MG; Start 11/27/18 at 21:00 Prednisone (Prednisone) 60 mg DAILY PO Last administered on 12/01/18 08:33; Admin Dose 60 MG; Start 11/28/18 at 12:00 Metoprolol Tartrate (Lopressor) 12.5 mg BID PO Last administered on 12/01/18at 08:34; Admin Dose 12.5 MG; Start 11/28/18 at 21:00 Enoxaparin Sodium (Lovenox) 50 mg Q12 SC Last administered on 11/30/18at 20:35; Admin Dose 50 MG; Start 11/30/18 at 09:00 CHANDAN HECTOR Dec 01, 2018 10:48
--- NOTE | 2018-12-01 15:39 | CONS ---
Date/Time of Note Date/Time of Note DATE: 12/01/18 TIME: 15:37 Assessment/Plan Assessment/Plan Assessment/Plan Shortness of breath Asthma and possibly pneumonia Mildly elevated troponin, trending down Preserved ejection fraction Acute superficial thrombi bilateral peroneal veins Hypertension Possible lung mass -Patient undergoing workup for possible lung mass. Biopsies pending, restart anticoagulation post procedure when no contraindication. Result Diagram: 11/29/18 0525 11/29/18 0525 Results 24hrs Laboratory Tests Test 12/01/18 11:42 Prothrombin Time 13.7 Prothrombin Time Ratio 1.1 INR International Normalized Ratio 1.04 Activated Partial Thromboplast Time 35.8 H Consultation Date/Type/Reason Admit Date/Time Nov 26, 2018 at 18:26 Initial Consult Date 11/27/18 Type of Consult cv 24 HR Interval Summary Free Text/Dictation Shortness of breath is much better, denies chest pain or palpitations Exam/Review of Systems Vital Signs Vitals Vital Signs Date Temp Pulse Resp B/P (MAP) Pulse Ox O2 O2 Flow FiO2 Time Delivery Rate 12/01/18 69 12:44 12/01/18 98.4 18 129/67 95 11:39 (87) 12/01/18 21 09:20 12/01/18 Nasal 2.0 08:00 Cannula Intake and Output 11/30/18 11/30/18 12/01/18 1515:00 23:00 07:00 IntakeIntake Total 650 ml 480 ml BalanceBalance 650 ml 480 ml Exam No apparent distress Constitutional: alert, oriented Head: normocephalic Respiratory: other (Coarse breath sounds bilaterally, no wheezing) Cardiovascular: regular rate and rhythm, other (S1-S2 heard) Gastrointestinal: soft, non-tender, bowel sounds Extremities: edema Medications Medications Current Medications Albuterol/ Ipratropium (Duoneb) 3 ml Q2H RESP THERAPY PRN HHN shortness of breath Last administered on 12/01/18at 09:10; Admin Dose 3 ML; Start 11/26/18 at 19:00 Budesonide (Pulmicort (Neb)) 0.5 mg BID RESP THERAPY HHN Last administered on 12/01/18at 09:10; Admin Dose 0.5 MG; Start 11/26/18 at 20:00 Cefepime HCl 50 ml @ 100 mls/hr Q12 IVPB Last administered on 12/01/18 08:32; Admin Dose 100 MLS/HR; Start 11/26/18 at 21:00 IV Flush (NS 3 ml) 3 ml PER PROTOCOL IV ; Start 11/27/18 at 00:30 Ondansetron HCl (Zofran Inj) 4 mg Q6H PRN IV NAUSEA AND/OR VOMITING; Start 11/27/18 at 00:30 Nitroglycerin (Nitroglycerin (Sl Tab) 0.4 Mg) 1 tab Q5M PRN SL CHEST PAIN; Start 11/27/18 at 00:30 Acetaminophen (Tylenol Tab) 650 mg Q6H PRN PO PAIN LEVEL 1-3 OR FEVER; Start 11/27/18 at 00:30 Acetaminophen/ Hydrocodone Bitart ([place] (5/325)) 1 tab Q6H PRN PO PAIN LEVEL 4-6; Start 11/27/18 at 00:30 Acetaminophen/ Hydrocodone Bitart ([place] (5/325)) 2 tab Q6H PRN PO PAIN LEVEL 7-10 Last administered on 11/29/18at 20:24; Admin Dose 2 TAB; Start 11/27/18 at 00:30 Aspirin (Aspirin) 81 mg DAILY PO Last administered on 11/30/18 08:15; Admin Dose 81 MG; Start 11/27/18 at 09:00 Folic Acid (Folic Acid) 0.8 mg DAILY PO Last administered on 12/01/18 08:33; Admin Dose 0.8 MG; Start 11/27/18 at 09:00 Pantoprazole (Protonix Tab) 40 mg DAILY@0600 PO Last administered on 12/01/18at 05:23; Admin Dose 40 MG; Start 11/27/18 at 06:00 Amlodipine Besylate (Norvasc) 10 mg DAILY PO Last administered on 12/01/18 08:32; Admin Dose 10 MG; Start 11/27/18 at 09:00 Fluticasone/ Vilanterol (Breo Ellipta 100-25 Mcg Inh) 1 inh DAILY INH ; Start 11/27/18 at 09:00; Status Hold Guaifenesin (Robitussin Liquid Cup) 200 mg Q4H PRN PO cough Last administered on 11/28/18at 10:46; Admin Dose 200 MG; Start 1/3/19 at 16:30 Atorvastatin Calcium (Lipitor) 40 mg HS PO Last administered on 11/30/18at 20:24; Admin Dose 40 MG; Start 11/27/18 at 21:00 Metoprolol Tartrate (Lopressor) 12.5 mg BID PO Last administered on 12/01/18at 08:34; Admin Dose 12.5 MG; Start 11/28/18 at 21:00 Enoxaparin Sodium (Lovenox) 50 mg Q12 SC Last administered on 11/30/18at 20:35; Admin Dose 50 MG; Start 11/30/18 at 09:00 Prednisone (Prednisone) 30 mg DAILY PO ; Start 12/02/18 at 09:00 Kasi Hughes DO Dec 01, 2018 15:39
[2018-12-01] MEDS ORDERED: LIDOCAINE 1% (MPF) 5 ML VIAL ONE (16:13)
--- NOTE | 2018-12-01 17:03 | PN ---
Date/Time of Note Date/Time of Note DATE: 12/01/18 TIME: 16:58 Assessment/Plan VTE Prophylaxis Risk score (from Ns)>0 risk: 5 SCD applied (from Ns): No SCD contraindicated: other (no) Pharmacological prophylaxis: LMWH Lines/Catheters IV [facility]from [facility] Urinary Cath still in place: No Assessment/Plan Assessment/Plan # Asthma exacerbation -resolved -For now continue supplemental oxygen, bronchodilators, steroid -Follow-up pulmonary recommendations -Continue PT and OT # Positive troponin in the absence of chest pain. - No NSTEMI treatment per cardiology -For now continue aspirin. -trops downtrending # RUL lung mass: Visible on CT chest and CXR. Associated with R pleural effusion. 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 Since treatment she has had persistent cough occasionally productive of blood, according to family. - Per IR, unable to do biopsy of the mass due to its proximity to vasculature. - s/p IR-guided thoracentesis of pleural effusion. Will f/u initial results. # Peroneal vein blood clots: Present on lower extremity ultrasound - Per cardiology recommendations, started on Eliquis for that, bc per them even though patient with superficial thrombi, would strongly consider anticoagulation treatment to prevent recurrence as well as post thrombotic syndrome - this now switched to Lovenox subcu twice daily, continue for now Result Diagram: 11/29/18 0525 11/29/18 0525 Results 24hrs Laboratory Tests Test 12/01/18 11:42 Prothrombin Time 13.7 Prothrombin Time Ratio 1.1 INR International Normalized Ratio 1.04 Activated Partial Thromboplast Time 35.8 H Subjective 24 Hr Interval Summary Free Text/Dictation No acute events. Spoke on phone to daughter today to update her on the plan. Went down for IR-guided thoracentesis today. Exam/Review of Systems Vital Signs Vitals Vital Signs Date Temp Pulse Resp B/P (MAP) Pulse Ox O2 O2 Flow FiO2 Time Delivery Rate 12/01/18 99 20 152/84 96 Room Air 16:05 (106) 12/01/18 98.0 15:50 12/01/18 21 09:20 12/01/18 2.0 08:00 Intake and Output 11/30/18 11/30/18 12/01/18 1515:00 23:00 07:00 IntakeIntake Total 650 ml 480 ml BalanceBalance 650 ml 480 ml Exam Gen: No acute distress, lying in bed Head: Atraumatic Eyes: Normal Conjunctiva ENT: Normal External Ears, Nose and Mouth. Neck: Supple Resp: No tachypnea. No retractions. Less wheezes and crackles heard at the bases bilaterally Cardio: Regular rate and rhythm, no murmurs Abd: Soft, non tender, non distended. Normal bowel sounds Ext: No LE edema B/L Neur: no focal deficits Medications Medications Current Medications Albuterol/ Ipratropium (Duoneb) 3 ml Q2H RESP THERAPY PRN HHN shortness of breath Last administered on 12/01/18 09:10; Admin Dose 3 ML; Start 11/26/18 at 19:00 Budesonide (Pulmicort (Neb)) 0.5 mg BID RESP THERAPY HHN Last administered on 12/01/18 09:10; Admin Dose 0.5 MG; Start 11/26/18 at 20:00 Cefepime HCl 50 ml @ 100 mls/hr Q12 IVPB Last administered on 12/01/18 08:32; Admin Dose 100 MLS/HR; Start 11/26/18 at 21:00 IV Flush (NS 3 ml) 3 ml PER PROTOCOL IV ; Start 11/27/18 at 00:30 Ondansetron HCl (Zofran Inj) 4 mg Q6H PRN IV NAUSEA AND/OR VOMITING; Start 11/27/18 at 00:30 Nitroglycerin (Nitroglycerin (Sl Tab) 0.4 Mg) 1 tab Q5M PRN SL CHEST PAIN; Start 11/27/18 at 00:30 Acetaminophen (Tylenol Tab) 650 mg Q6H PRN PO PAIN LEVEL 1-3 OR FEVER; Start 11/27/18 at 00:30 Acetaminophen/ Hydrocodone Bitart ([place] (5/325)) 1 tab Q6H PRN PO PAIN LEVEL 4-6; Start 11/27/18 at 00:30 Acetaminophen/ Hydrocodone Bitart ([place] (5/325)) 2 tab Q6H PRN PO PAIN LEVEL 7-10 Last administered on 11/29/18at 20:24; Admin Dose 2 TAB; Start 11/27/18 at 00:30 Aspirin (Aspirin) 81 mg DAILY PO Last administered on 11/30/18 08:15; Admin Dose 81 MG; Start 11/27/18 at 09:00 Folic Acid (Folic Acid) 0.8 mg DAILY PO Last administered on 12/01/18at 08:33; Admin Dose 0.8 MG; Start 11/27/18 at 09:00 Pantoprazole (Protonix Tab) 40 mg DAILY@0600 PO Last administered on 12/01/18at 05:23; Admin Dose 40 MG; Start 11/27/18 at 06:00 Amlodipine Besylate (Norvasc) 10 mg DAILY PO Last administered on 12/01/18at 08:32; Admin Dose 10 MG; Start 11/27/18 at 09:00 Fluticasone/ Vilanterol (Breo Ellipta 100-25 Mcg Inh) 1 inh DAILY INH ; Start 11/27/18 at 09:00; Status Hold Guaifenesin (Robitussin Liquid Cup) 200 mg Q4H PRN PO cough Last administered on 11/28/18at 10:46; Admin Dose 200 MG; Start 11/27/18 at 16:30 Atorvastatin Calcium (Lipitor) 40 mg HS PO Last administered on 11/30/18at 20:24; Admin Dose 40 MG; Start 11/27/18 at 21:00 Metoprolol Tartrate (Lopressor) 12.5 mg BID PO Last administered on 12/01/18at 08:34; Admin Dose 12.5 MG; Start 11/28/18 at 21:00 Enoxaparin Sodium (Lovenox) 50 mg Q12 SC Last administered on 11/30/18at 20:35; Admin Dose 50 MG; Start 11/30/18 at 09:00 Prednisone (Prednisone) 30 mg DAILY PO ; Start 12/02/18 at 09:00 ALEX SIMONS MD Dec 01, 2018 17:03
[2018-12-01] MEDS: ATORVASTATIN 40 MG TAB PO SCH (20:53)
[2018-12-02] VITALS (9 sets, daily range): BP systolic 112–140; BP diastolic 59–78; PULSE 72–92; RESP 18–22
[2018-12-02] MEDS: PANTOPRAZOLE (EC) 40 MG TAB PO SCH (06:02)
[2018-12-02] MEDS: CEFEPIME 1GM/50 ML (PMX) 50 ML IVPB SCH (08:46)
[2018-12-02] MEDS: FOLIC ACID 0.4 MG TAB PO SCH (08:47)
[2018-12-02] MEDS: ASPIRIN 81 MG TAB PO SCH (08:47)
[2018-12-02] MEDS: METOPROLOL 25 MG TAB PO SCH (08:47)
[2018-12-02] MEDS: AMLODIPINE 10 MG TAB PO SCH (08:50)
[2018-12-02] MEDS ORDERED: predniSONE 10 MG TAB PO SCH (09:00)
[2018-12-02] MEDS: ENOXAPARIN 60 MG/0.6 ML SYG SC SCH (09:01)
[2018-12-02] MEDS: BUDESONIDE (NEB) 0.5MG/2ML AMP HHN SCH (09:09)
--- NOTE | 2018-12-02 11:10 | CONS ---
Date/Time of Note Date/Time of Note DATE: 12/02/18 TIME: 11:06 Assessment/Plan Assessment/Plan Assessment/Plan Assessment and recommendations; 1. Patient admitted with asthma exacerbation with interval improvement. 2. Incidental discovery of right pleural effusion with right upper lobe lung mass with areas of bronchiectasis. Difficult to rule out scar carcinoma. Patient was supposed to have CT biopsy but because of the location of the lesion, CT biopsy was deemed high risk procedure. Therefore patient underwent right thoracentesis yesterday. Cytology is pending. 3. Bilateral lower extremity DVT. 4. History of hypertension. 5. Likely right upper lobe prior granulomatous disease. Continue current supportive care. Consider discharge. Follow-up on outpatient once cytology results are obtained. Maintain indefinite anticoagulation. Consider discussing with family not to pursue any further diagnostic workup in case pleural fluid cytology is nondiagnostic. Because of patient's advanced age, if she has underlying lung malignancy patient is a very poor candidate for any kind of treatment. Meanwhile discontinue prednisone. Result Diagram: 11/29/18 0525 11/29/18 0525 Results 24hrs Laboratory Tests Test 12/01/18 11:42 12/01/18 16:20 12/01/18 17:45 Prothrombin Time 13.7 Prothrombin Time Ratio 1.1 INR International Normalized Ratio 1.04 Activated Partial Thromboplast Time 35.8 H Pathologist Review (Hematology) Body Fluid Type PLEURAL FLUID Body Fluid Volume 450.0 Body Fluid Color RED Body Fluid Appearance CLOUDY Body Fluid WBC 2173 Body Fluid RBC (Auto) 67967 Body Fluid Polynuclear WBCs (%) 20.3 Body Fluid Mononuclear Cells % Auto 79.7 Body Fluid Total Protein 4.3 Body Fluid Lactate Dehydrogenase 7964 Lactate Dehydrogenase 3163 H Total Protein 7.2 Consultation Date/Type/Reason Admit Date/Time Nov 26, 2018 at 18:26 Initial Consult Date 11/27/18 Type of Consult Pulmonary 24 HR Interval Summary Free Text/Dictation Patient's condition is stable. Denies any shortness of breath, wheezing or cough. Underwent a right thoracentesis yesterday. 400 mL of fluid was removed. Patient was deemed too high of a risk for CT biopsy of right upper lobe lung mass. General exam; elderly female, awake and alert. Currently in no distress. Exam/Review of Systems Vital Signs Vitals Vital Signs Date Temp Pulse Resp B/P (MAP) Pulse Ox O2 O2 Flow FiO2 Time Delivery Rate 12/02/18 92 09:20 12/02/18 17 95 21 09:10 12/02/18 Nasal 2.0 07:41 Cannula 12/02/18 97.6 140/78 07:40 (98) Intake and Output 12/01/18 12/01/18 12/02/18 1515:00 23:00 07:00 IntakeIntake Total 100 ml 560 ml 300 ml BalanceBalance 100 ml 560 ml 300 ml Exam H HEENT exam; supple neck, no JVD. No lymphadenopathy. Midline trachea. No thyromegaly. No neck masses. Chest exam; diminished but clear breath sounds. S1-S2 audible, no murmurs. Regular rhythm. Abdomen exam; soft, no organomegaly. Bowel sounds audible. Nontender. Extremity exam; no peripheral edema or clubbing. 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 Medications Medications Current Medications Albuterol/ Ipratropium (Duoneb) 3 ml Q2H RESP THERAPY PRN HHN shortness of breath Last administered on 12/01/18at 09:10; Admin Dose 3 ML; Start 11/26/18 at 19:00 Budesonide (Pulmicort (Neb)) 0.5 mg BID RESP THERAPY HHN Last administered on 12/02/18at 09:09; Admin Dose 0.5 MG; Start 11/26/18 at 20:00 Cefepime HCl 50 ml @ 100 mls/hr Q12 IVPB Last administered on 12/02/18at 08:46; Admin Dose 100 MLS/HR; Start 11/26/18 at 21:00 IV Flush (NS 3 ml) 3 ml PER PROTOCOL IV ; Start 11/27/18 at 00:30 Ondansetron HCl (Zofran Inj) 4 mg Q6H PRN IV NAUSEA AND/OR VOMITING; Start 11/27/18 at 00:30 Nitroglycerin (Nitroglycerin (Sl Tab) 0.4 Mg) 1 tab Q5M PRN SL CHEST PAIN; Start 11/27/18 at 00:30 Acetaminophen (Tylenol Tab) 650 mg Q6H PRN PO PAIN LEVEL 1-3 OR FEVER; Start 11/27/18 at 00:30 Acetaminophen/ Hydrocodone Bitart ([place] (5/325)) 1 tab Q6H PRN PO PAIN LEVEL 4-6; Start 11/27/18 at 00:30 Acetaminophen/ Hydrocodone Bitart ([place] (5/325)) 2 tab Q6H PRN PO PAIN LEVEL 7-10 Last administered on 11/29/18 20:24; Admin Dose 2 TAB; Start 11/27/18 at 00:30 Aspirin (Aspirin) 81 mg DAILY PO Last administered on 12/02/18 08:47; Admin Dose 81 MG; Start 11/27/18 at 09:00 Folic Acid (Folic Acid) 0.8 mg DAILY PO Last administered on 12/02/18 08:47; Admin Dose 0.8 MG; Start 11/27/18 at 09:00 Pantoprazole (Protonix Tab) 40 mg DAILY@0600 PO Last administered on 12/02/18 06:02; Admin Dose 40 MG; Start 11/27/18 at 06:00 Amlodipine Besylate (Norvasc) 10 mg DAILY PO Last administered on 12/02/18 08:50; Admin Dose 10 MG; Start 11/27/18 at 09:00 Fluticasone/ Vilanterol (Breo Ellipta 100-25 Mcg Inh) 1 inh DAILY INH ; Start 11/27/18 at 09:00; Status Hold Guaifenesin (Robitussin Liquid Cup) 200 mg Q4H PRN PO cough Last administered on 11/28/18 10:46; Admin Dose 200 MG; Start 11/27/18 at 16:30 Atorvastatin Calcium (Lipitor) 40 mg HS PO Last administered on 12/01/18 20:53; Admin Dose 40 MG; Start 11/27/18 at 21:00 Metoprolol Tartrate (Lopressor) 12.5 mg BID PO Last administered on 12/02/18 08:47; Admin Dose 12.5 MG; Start 11/28/18 at 21:00 Enoxaparin Sodium (Lovenox) 50 mg Q12 SC Last administered on 12/02/18 09:01; Admin Dose 50 MG; Start 11/30/18 at 09:00 Prednisone (Prednisone) 30 mg DAILY PO Last administered on 12/02/18 08:47; Admin Dose 30 MG; Start 12/02/18 at 09:00 CHANDAN HECTOR Dec 02, 2018 11:10
[2018-12-02] MEDS ORDERED: APIX5TAB PO (11:41)
[2018-12-02] MEDS ORDERED: ATOR40TA68 PO (11:41)
[2018-12-02] MEDS ORDERED: METO-448 PO (11:41)
[2018-12-02] MEDS ORDERED: AMLO-147 PO (11:41)
--- NOTE | 2018-12-02 11:52 | PDOCDIS ---
Discharge Instructions DIAGNOSIS Discharge Diagnosis Asthma exacerbation. New RUL lung mass with pleural effusion CONDITION [id number] Patient Condition: [id number] Fair HOME CARE INSTRUCTIONS: [id number] Special Diet: [id number] CARB CONTROLLED ACTIVITY: [id number] Activity Restrictions: [id number] Slowly Increase Activity FOLLOW UP/APPOINTMENTS Follow-up Plan 1. Continue anticoagulation (blood thinners) for superficial blood clot in the leg for at least 3 months. 2. Take all other medicines as prescribed. 3. Make an appointment with Dr. Garcia Ellis [phone] in 1-2 weeks to discuss results of the lung fluid studies. 4. See your primary care doctor in 1-2 weeks. ALEX SIMONS MD Dec 02, 2018 11:52
--- NOTE | 2018-12-02 13:26 | CONS ---
Date/Time of Note Date/Time of Note DATE: 12/02/18 TIME: 13:24 Assessment/Plan Assessment/Plan Assessment/Plan Shortness of breath Asthma and possibly pneumonia Mildly elevated troponin, trending down Preserved ejection fraction Acute superficial thrombi bilateral peroneal veins Hypertension Possible lung mass -Patient undergoing workup for possible lung mass. She is status post thoracentesis. Switch anticoagulation to p.o. if no plan for any further procedures. Continue beta-alonzo as tolerates. DC planning Result Diagram: 11/29/1852411/29/18524 Results 24hrs Laboratory Tests Test 12/01/18 16:20 12/01/18 17:45 Pathologist Review (Hematology) Body Fluid Type PLEURAL FLUID Body Fluid Volume 450.0 Body Fluid Color RED Body Fluid Appearance CLOUDY Body Fluid WBC 2173 Body Fluid RBC (Auto) 20848 Body Fluid Polynuclear WBCs (%) 20.3 Body Fluid Mononuclear Cells % Auto 79.7 Body Fluid Total Protein 4.3 Body Fluid Lactate Dehydrogenase 7964 Lactate Dehydrogenase 3163 H Total Protein 7.2 Consultation Date/Type/Reason Admit Date/Time Nov 26, 2018 at 18:26 Initial Consult Date 11/27/18 Type of Consult cv 24 HR Interval Summary Free Text/Dictation Patient seen and examined. Denies shortness of breath Exam/Review of Systems Vital Signs Vitals Vital Signs Date Temp Pulse Resp B/P (MAP) Pulse Ox O2 O2 Flow FiO2 Time Delivery Rate 12/02/18 72 12:30 12/02/18 97.0 22 117/65 96 Room Air 11:56 (82) 12/02/18 21 09:10 12/02/18 2.0 07:41 Intake and Output 12/01/18 12/01/18 12/02/18 1515:00 23:00 07:00 IntakeIntake Total 100 ml 560 ml 300 ml BalanceBalance 100 ml 560 ml 300 ml Exam No apparent distress Constitutional: alert, oriented Head: normocephalic Respiratory: other (Coarse breath sounds bilaterally, no wheezing) Cardiovascular: regular rate and rhythm, other (S1-S2 heard) Gastrointestinal: soft, non-tender, bowel sounds Extremities: edema (Trace) Medications Medications Current Medications Albuterol/ Ipratropium (Duoneb) 3 ml Q2H RESP THERAPY PRN HHN shortness of breath Last administered on 12/01/18at 09:10; Admin Dose 3 ML; Start 11/26/18 at 19:00 Budesonide (Pulmicort (Neb)) 0.5 mg BID RESP THERAPY HHN Last administered on 12/02/18 09:09; Admin Dose 0.5 MG; Start 11/26/18 at 20:00 Cefepime HCl 50 ml @ 100 mls/hr Q12 IVPB Last administered on 12/02/18 08:46; Admin Dose 100 MLS/HR; Start 11/26/18 at 21:00 IV Flush (NS 3 ml) 3 ml PER PROTOCOL IV ; Start 11/27/18 at 00:30 Ondansetron HCl (Zofran Inj) 4 mg Q6H PRN IV NAUSEA AND/OR VOMITING; Start 11/27/18 at 00:30 Nitroglycerin (Nitroglycerin (Sl Tab) 0.4 Mg) 1 tab Q5M PRN SL CHEST PAIN; Start 11/27/18 at 00:30 Acetaminophen (Tylenol Tab) 650 mg Q6H PRN PO PAIN LEVEL 1-3 OR FEVER; Start 11/27/18 at 00:30 Acetaminophen/ Hydrocodone Bitart ([place] (5/325)) 1 tab Q6H PRN PO PAIN LEVEL 4-6; Start 11/27/18 at 00:30 Acetaminophen/ Hydrocodone Bitart ([place] (5/325)) 2 tab Q6H PRN PO PAIN LEVEL 7-10 Last administered on 11/29/18 20:24; Admin Dose 2 TAB; Start 11/27/18 at 00:30 Aspirin (Aspirin) 81 mg DAILY PO Last administered on 12/02/18 08:47; Admin Dose 81 MG; Start 11/27/18 at 09:00 Folic Acid (Folic Acid) 0.8 mg DAILY PO Last administered on 12/02/18 08:47; Admin Dose 0.8 MG; Start 11/27/18 at 09:00 Pantoprazole (Protonix Tab) 40 mg DAILY@0600 PO Last administered on 12/02/18 06:02; Admin Dose 40 MG; Start 11/27/18 at 06:00 Amlodipine Besylate (Norvasc) 10 mg DAILY PO Last administered on 12/02/18 08:50; Admin Dose 10 MG; Start 11/27/18 at 09:00 Fluticasone/ Vilanterol (Breo Ellipta 100-25 Mcg Inh) 1 inh DAILY INH ; Start 11/27/18 at 09:00; Status Hold Guaifenesin (Robitussin Liquid Cup) 200 mg Q4H PRN PO cough Last administered on 11/28/18at 10:46; Admin Dose 200 MG; Start 11/27/18 at 16:30 Atorvastatin Calcium (Lipitor) 40 mg HS PO Last administered on 12/01/18at 20:53; Admin Dose 40 MG; Start 11/27/18 at 21:00 Metoprolol Tartrate (Lopressor) 12.5 mg BID PO Last administered on 12/02/18 08:47; Admin Dose 12.5 MG; Start 11/28/18 at 21:00 Enoxaparin Sodium (Lovenox) 50 mg Q12 SC Last administered on 12/02/18 09:01; Admin Dose 50 MG; Start 11/30/18 at 09:00 Kasi Hughes DO Dec 02, 2018 13:26
--- NOTE | 2018-12-02 18:02 | DS ---
Date/Time of Note Date/Time of Note DATE: 12/02/18 TIME: 17:56 Discharge Summary Admission/Discharge Info Admit Date/Time Nov 26, 2018 at 18:26 Discharge Date/Time Dec 02, 2018 at 17:10 Discharge Diagnosis Asthma exacerbation. New RUL lung mass with pleural effusion Patient Condition: Fair Consults Pulmonary Procedures R thoracentesis Hx of Present Illness This is an 88-year-old female with a history of asthma who presents the ER c omplaining of shortness of breath and cough. Cough has been dry for the most part. Denied chest pain, nausea/vomiting or abdominal pain. When presented to ER, temp was 99.8 and she was tachycardic. Initial troponin 0.474. SBP at one point was as high as 190. Chest x-ray shows right basilar patchy opacity or pneumonia. Patient was last admitted here exactly a year ago after she presented with shortness of breath and cough secondary to asthma exacerbation. Additionally, family reports that the patient was treated for pulmonary tuberculosis about 5 years ago at [facility]. Since then she's had dry cough which occasionally is productive of bloody sputum. In the past three months she's had night sweats and weight loss. Hospital Course For asthma exacerbation, she was treated with bronchodilators and a 5 day course of oral steroids which she completed in the hospital. At time of discharge she was able to ambulate breathing comfortably on room air without desaturating. She completed a 7 day course of IV cefepime for suspected pneumonia with complete resolution of fevers, leukocytosis, and other infectious symptoms. CT chest was negative for PE but notable for a large consolidative mass in the RUL. This may represent old TB scarring but was concerning for possible new pulmonary malignancy. Per discussion with IR this was unfortunately too close to vasculature for CT-guided biopsy. Instead a thoracentesis was done of R sided effusion, which was transudative. Gram stain, cell county, and cytology was ordered. The patient will see Dr. Ellis in clinic to f/u results. Discussed with patient's daughter over phone that if this is malignancy, she may be too frail for chemotherapy. The daughter agreed, and also mentioned the patient may want to travel to the [facility] before her condition deteriorates considerably. Home Meds Active Scripts Apixaban* (Eliquis*) 5 Mg Tablet, 5 MG PO BID, #60 TAB Prov:ALEX SIMONS MD 12/02/18 Metoprolol Tartrate* (Lopressor*) 25 Mg Tab, 12.5 MG PO BID, #60 TAB Prov:ALEX SIMONS MD 12/02/18 Atorvastatin* (Atorvastatin*) 40 Mg Tablet, 40 MG PO HS, #30 TAB Prov:ALEX SIMONS MD 12/02/18 Amlodipine Besylate* (Amlodipine Besylate*) 10 Mg Tablet, 10 MG PO DAILY, #30 TAB Prov:ALEX SIMONS MD 12/02/18 Reported Medications Pantoprazole* (Pantoprazole*) 20 Mg Tablet.dr, 20 MG PO NEEDED, TAB 11/26/18 Hydrocodone/Acetaminophen ([place] 5-325 Tablet) 1 Each Tablet, 1 EACH PO Q12H, TAB 11/26/18 Acetaminophen* (Tylenol*) 500 Mg Tab, 500 MG PO NEEDED PRN for MILD PAIN LEVEL 1-3, TAB 11/26/18 Zinc (Zinc Chelate) 50 Mg Tablet, 50 MG PO DAILY, TAB 11/26/18 Cholecalciferol* (Vitamin D3*) 1,000 Unit Tablet, 1000 UNIT PO DAILY, TAB 11/26/18 Folic Acid* (Folic Acid*) 0.8 Mg Tablet, 0.8 MG PO DAILY, TAB 11/26/18 Salmeterol Xinaf/Fluticasone* (Advair*) 250-50 Diskus Inhaler, 1 INH INHALATION BID, #1 INHALER 11/26/18 Aspirin* (Aspirin* Chew) 81 Mg Tab.chew, 81 MG PO DAILY, TAB.CHEW 11/26/18 Albuterol Sulfate (Proair Respiclick) 90 Mcg Aer.pow.ba, 2 PUFF INHALATION Q4 PRN for SHORTNESS OF BREATH, #1 BOTTLE 11/26/18 Discontinued Reported Medications Loratadine* (Claritin*) 10 Mg Tablet, 10 MG PO DAILY, TAB 11/24/17 Salmeterol Xinaf/Fluticasone* (Advair*) 250-50 Diskus Inhaler, 1 INH INHALATION BID, #1 INHALER 12/09/16 Albuterol Sulfate* (Ventolin HFA*) 18 Gm Hfa.aer.ad, 2 PUFF INHALATION Q6H, #1 INHALER 12/09/16 Aspirin* (Aspirin* Chew) 81 Mg Tab.chew, 81 MG PO DAILY, TAB.CHEW 12/15/15 Discontinued Scripts Hydrocodone/Acetaminophen ([place] 5-325 Tablet) 1 Each Tablet, 1 TAB PO Q6H PRN for PAIN, #12 TAB Prov:LEAJAN Peterson. DO 11/02/18 Ibuprofen* (Motrin*) 400 Mg Tab, 400 MG PO Q8, #30 TAB Prov:JAN TATE DO 11/02/18 Follow-up Plan 1. Continue anticoagulation (blood thinners) for superficial blood clot in the leg for at least 3 months. 2. Take all other medicines as prescribed. 3. Make an appointment with Dr. Garcia Ellis [phone] in 1-2 weeks to discuss results of the lung fluid studies. 4. See your primary care doctor in 1-2 weeks. Primary Care Provider [facility] Time spent on discharge: > 30 minutes ALEX SIMONS MD Dec 02, 2018 18:02
== END 2018-12-02 17:10 | disposition home or self-care (01) | DRG 202 ==
LOC: E/R 15:01 → 6WM 18:26
PROVIDERS: ADMIT Internal Medicine; ATTEND Internal Medicine
PROC: 0W993ZZ Drainage of Right Pleural Cavity, Percutaneous Approach (ICD-10-PCS; principal; 2018-12-01)
DX: J45.901 Unspecified asthma with (acute) exacerbation (principal); J18.9 Pneumonia, unspecified organism; I82.4Z3 Acute embolism and thrombosis of unspecified deep veins of distal lower extremity, bilateral; I24.8 Other forms of acute ischemic heart disease; J90 Pleural effusion, not elsewhere classified; R74.8 Abnormal levels of other serum enzymes; I11.9 Hypertensive heart disease without heart failure; J98.4 Other disorders of lung; J47.9 Bronchiectasis, uncomplicated; Z86.11 Personal history of tuberculosis; Z79.82 Long term (current) use of aspirin
CPT/HCPCS: 71045; 71275; 76942; 80048; 80053; 80061; 81235; 82550; 82553; 83036; 83615; 83735; 83880; 84100; 84155; 84157; 84443; 84484; 85025; 85610; 85730; 87070; 87102; 87116; 88104; 88305; 88313; 88341; 88342; 88360; 88377; 89051; 93005; 93306; 93970; 94640; 94664; 97110; 97116; 97162; 97167; 97530; J0360; J0692; J1650; J1956; J2930; J7512; Q9967

== ENCOUNTER 2018-12-20 19:55 | Inpatient (IN) | payer MEDICARE, OTHER ==
[~2018-12-20] VITALS: Ht 149.9 cm; Wt 49.2 kg
[~2018-12-20 19:55] MED LIST changes: -ALBU18HF INHALATION; +ALBU90AE INHALATION; +AMLO-147 PO; +APIX5TAB PO; +ATOR40TA68 PO; +CHOL100062 PO; +FOL8 PO; -IBUP-1561 PO; -LORA-186 PO; +METO-448 PO; +PANT20TA3 PO; +TYL500 PO; +ZINC50TA2 PO
[2018-12-20] MEDS ORDERED: CEFEPIME 2GM/50 ML (PMX) 50 ML IVPB STA (22:36)
[2018-12-20] MEDS ORDERED: VANCOMYCIN 1 GM (PMX) 250 ML IVPB STA (22:36)
[2018-12-20] MEDS ORDERED: SOD CHLORIDE 0.9% 100 ML ONE (22:49)
[2018-12-20] MEDS ORDERED: IODIXANOL LOCM 100 ML BTL ONE (22:49)
[2018-12-21] VITALS (8 sets, daily range): BP systolic 120–126; BP diastolic 70–77; PULSE 82–114; RESP 16–20; Ht 149.9 cm; Wt 49.2 kg
[2018-12-21] MEDS ORDERED: NACL 0.9% 3 ML SYG IV SCH
[2018-12-21] MEDS ORDERED: DOCUSATE SODIUM 100 MG CAP PO PRN
[2018-12-21] MEDS ORDERED: VANCOMYCIN IV PER PHARMACY XX SCH
[2018-12-21] MEDS ORDERED: ONDANSETRON 4 MG INJ IV PRN
[2018-12-21] MEDS ORDERED: BISACODYL (EC) 5 MG TAB PO PRN
[2018-12-21] MEDS ORDERED: ACETAMINOPHEN 325 MG TAB PO PRN
--- NOTE | 2018-12-21 00:35 | ERD ---
ER Documentation Chief Complaint Chief Complaint COUGHING UP BLOOD, NO APPETITE, LOSS OF WEIGHT, BACK PAIN, HX LUNG CA HPI This is an 88-year-old female with a history of recently diagnosed right-sided lung cancer who presents for evaluation of hemoptysis. Patient denies fever, she was recently admitted for CHF, and at that time she was diagnosed with her malignancy, she underwent a thoracentesis, but a biopsy was not performed, given the patient's frail nature, and also her desire to possibly return to the [facility]. She is noted to have a DVT on ultrasound, and she is currently being treated with Eliquis. Patient denies shortness of breath. ROS All systems reviewed and are negative except as per history of present illness. Medications Home Meds Active Scripts Apixaban* (Eliquis*) 5 Mg Tablet, 5 MG PO BID, #60 TAB Prov:ALEX SIMONS MD 12/02/18 Metoprolol Tartrate* (Lopressor*) 25 Mg Tab, 12.5 MG PO BID, #60 TAB Prov:ALEX SIMONS MD 12/02/18 Atorvastatin* (Atorvastatin*) 40 Mg Tablet, 40 MG PO HS, #30 TAB Prov:ALEX SIMONS MD 12/02/18 Amlodipine Besylate* (Amlodipine Besylate*) 10 Mg Tablet, 10 MG PO DAILY, #30 TAB Prov:ALEX SIMONS MD 12/02/18 Reported Medications Pantoprazole* (Pantoprazole*) 20 Mg Tablet.dr, 20 MG PO NEEDED, TAB 11/26/18 Hydrocodone/Acetaminophen ([place] 5-325 Tablet) 1 Each Tablet, 1 EACH PO Q12H, TAB 11/26/18 Acetaminophen* (Tylenol*) 500 Mg Tab, 500 MG PO NEEDED PRN for MILD PAIN LEVEL 1-3, TAB 11/26/18 Zinc (Zinc Chelate) 50 Mg Tablet, 50 MG PO DAILY, TAB 11/26/18 Cholecalciferol* (Vitamin D3*) 1,000 Unit Tablet, 1000 UNIT PO DAILY, TAB 11/26/18 Folic Acid* (Folic Acid*) 0.8 Mg Tablet, 0.8 MG PO DAILY, TAB 11/26/18 Salmeterol Xinaf/Fluticasone* (Advair*) 250-50 Diskus Inhaler, 1 INH INHALATION BID, #1 INHALER 11/26/18 Aspirin* (Aspirin* Chew) 81 Mg Tab.chew, 81 MG PO DAILY, TAB.CHEW 11/26/18 Albuterol Sulfate (Proair Respiclick) 90 Mcg Aer.pow.ba, 2 PUFF INHALATION Q4 PRN for SHORTNESS OF BREATH, #1 BOTTLE 11/26/18 Allergies Allergies: Coded Allergies: Sulfa (Sulfonamide Antibiotics) (Unverified Allergy, Severe, RASH, 11/26/18) PMhx/Soc History of Surgery: Yes (eye surgery 1997) Anesthesia Reaction: No Hx 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 Disorder: No Hx Respiratory Disorders: Yes (asthma, bronchitis, pneumonia, newly dx lung CA ) Hx Cardiac Disorders: Yes (HTN, "SMALL PA" ON BLOOD THINNERS) Hx Psychiatric Problems: No Hx Miscellaneous Medical Probl: No Hx Alcohol Use: No Hx Substance Use: No Hx Tobacco Use: No Smoking Status: Never smoker Physical Exam Vitals Vital Signs Date Temp Pulse Resp B/P (MAP) Pulse Ox O2 O2 Flow FiO2 Time Delivery Rate 12/20/18 103 20 123/74 96 Nasal 2.0 23:55 (90) Cannula 12/20/18 Nasal 2.0 21:25 Cannula 12/20/18 Nasal 2 21:25 Cannula 12/20/18 100.3 100 21 113/69 94 20:08 (84) Physical Exam Const: No acute distress, elderly appearing female, with nasal cannula Head: Atraumatic Eyes: Normal Conjunctiva ENT: Normal External Ears, Nose and Mouth. Neck: Full range of motion. No meningismus. Resp: Clear to auscultation bilaterally Cardio: Regular rate and rhythm, no murmurs Abd: Soft, non tender, non distended. Normal bowel sounds Skin: No petechiae or rashes Back: No midline or flank tenderness Ext: There is bilateral 1+ pitting edema, there is no cyanosis Neur: Awake and alert Psych: Normal Mood and Affect Result Diagram: 12/20/18211812/20/182154 Results 24 hrs Laboratory Tests Test 12/20/18 21:19 12/20/18 21:20 12/20/18 21:22 12/20/18 21:55 White Blood Count 12.7 10^3/ul Red Blood Count 4.40 10^6/ul Hemoglobin 12.9 g/dl Hematocrit 39.0 % Mean Corpuscular 88.6 fl Volume Mean Corpuscular 29.3 pg Hemoglobin Mean Corpuscular 33.1 g/dl Hemoglobin Concent Red Cell 13.2 % Distribution Width Platelet Count 331 10^3/UL Mean Platelet 9.2 fl Volume Immature 0.600 % Granulocytes % Neutrophils % 80.0 % Lymphocytes % 12.1 % Monocytes % 6.5 % Eosinophils % 0.6 % Basophils % 0.2 % Nucleated Red 0.0 /100WBC Blood Cells % Immature 0.070 10^3/ul Granulocytes # Neutrophils # 10.1 10^3/ul Lymphocytes # 1.5 10^3/ul Monocytes # 0.8 10^3/ul Eosinophils # 0.1 10^3/ul Basophils # 0.0 10^3/ul Nucleated Red 0.0 10^3/ul Blood Cells # Lactic Acid Level 2.9 mmol/L POC Venous Lactate 2.3 mmol/L Prothrombin Time 16.5 Sec Prothrombin Time 1.3 Ratio INR International 1.32 Normalized Ratio Activated 33.[address] Time Sodium Level 140 mmol/L Potassium Level 3.9 mmol/L Chloride Level 102 mmol/L Carbon Dioxide 26 mmol/L Level Anion Gap 12 Blood Urea 11 mg/dl Nitrogen Creatinine 0.74 mg/dl Est Glomerular mL/min Filtrat Rate mL/min Glucose Level 115 mg/dl Calcium Level 9.0 mg/dl Total Bilirubin 0.7 mg/dl Direct Bilirubin 0.00 mg/dl Indirect Bilirubin 0.7 mg/dl Aspartate Amino 68 IU/L Transf (AST/SGOT) Alanine 22 IU/L Aminotransferase ( ALT/SGPT) Alkaline 233 IU/L Phosphatase Troponin I < 0.012 ng/ml B-Type Natriuretic 709 PG/ML Peptide Total Protein 6.5 g/dl Albumin 3.6 g/dl Globulin 2.90 g/dl Albumin/Globulin 1.24 Ratio Current Medications Medications Dose Sig/Brgiido Start Time Status Last (Trade) Ordered Route PRN Stop Time Admin Dose Reason Admin Vancomycin 250 ml @ ONCE STAT 12/20/18 12/20/18 HCl 125 mls/hr IVPB 22:36 23:32 12/21/18 00:35 Cefepime HCl 50 ml @ ONCE STAT 12/20/18 DC 12/20/18 100 mls/hr IVPB 22:36 22:50 12/20/18 23:05 IV Flush 10 ml STK-MED 12/20/18 DC (NS 10 ml) ONCE .ROUTE 22:49 12/20/18 22:50 Sodium 100 ml @ ud STK-MED 12/20/18 DC Chloride ONCE .ROUTE 22:49 12/20/18 22:50 Iodixanol 100 ml STK-MED 12/20/18 DC (Visipaque ONCE .ROUTE 22:49 Locm) 12/20/18 22:50 IV Flush 3 ml PER 12/21/18 (NS 3 ml) PROTOCOL IV 00:00 Ondansetron 4 mg Q6H PRN 12/21/18 HCl (Zofran IV 00:00 Inj) NAUSEA/VOMITI NG 650 mg Q6H PRN 12/21/18 Acetaminophen PO .PAIN 1-3 00:00 (Tylenol OR TEMP Tab) Docusate 100 mg Q12H PRN 12/21/18 Sodium PO 00:00 (Colace) .CONSTIPATION Bisacodyl 5 mg DAILY PRN 12/21/18 (Dulcolax) PO 00:00 .CONSTIPATION Vancomycin VANCOMYCIN PER 12/21/18 HCl (Vanco PER PHARMACY PROTOCOL XX 00:00 Iv Per Pharmacy) Cefepime HCl 50 ml @ Q12 IVPB 12/21/18 100 mls/hr 09:00 250 ml @ Q36H IVPB 12/22/18 Vancomycin/So 125 mls/hr 11:30 dium Chloride Procedures/MDM This 88-year-old female who presents for evaluation of hemoptysis. On my ablation the patient presented hemodynamically stable, with no emergent evidence of airway compromise, she has no fever, but she was noted to have a lactic acidosis, therefore she will be covered empirically with IV antibiotics, covering for hospital-acquired pneumonia. She will be admitted to telemetry, her CT angiogram is pending, her vital ultrasounds, redemonstrated DVT, case discussed with Dr. Stephens, who will admit the patient. At this time I do not feel this patient is septic, additionally would be cautious with IV fluids, given her history of CHF. EKG: Rate/Rhythm: Sinus tachycardia QRS, ST, T-waves: No changes consistent w/ acute ischemia Impression: No evidence of ischemia or arrhythmia Departure Diagnosis: Primary Impression: Lung cancer Laterality: right Lung location: unspecified part of lung Qualified Codes: C34.91 - Malignant neoplasm of unspecified part of right bronchus or lung Additional Impression: Hemoptysis Condition: Stable JANIA MARI MD Dec 21, 2018 00:33
--- NOTE | 2018-12-21 02:20 | HP ---
Date/Time of Note Date/Time of Note DATE: 12/21/18 TIME: 02:20 Assessment/Plan VTE Prophylaxis SCD applied (from Nsg): No SCD contraindicated: DVT Pharmacological prophylaxis: NA/contraindicated Pharm contraindication: bleeding Lines/Catheters IV Catheter Type (from Nrsg): Saline Lock Urinary Cath still in place: No Assessment/Plan Hospital Course This is a 88-year-old female being admitted to the telemetry floor for: #1 hemoptysis: Possibly multifactorial secondary to underlying chronic PE, Eliquis, lung CA. At the current time will monitor the patient closely on telemetry. We will keep the patient n.p.o. except meds. We will hold Eliquis. Will request IVC filter placement by IR. #3 suspect severe sepsis: Patient did present with elevated lactate, however I am unsure whether this is related to her underlying cancer. She did though have a temperature of 100.3. She was started on antibiotics in the ED. We will continue Vanco and cefepime at the current time. We will obtain a urinalysis to attempt to find a source. Blood cultures. #3 lung mass: Pathology report reviewed which is consistent with metastatic adenocarcinoma of the lung. PRN breathing nebulization as needed. Will consult pulmonology as well as hematology for further guidance. Metastasis also evident on the CTA of the chest. #4 history of VT: CT of the chest does show signs of subacute/chronic PE, patient also has peroneal DVT. She was on Eliquis however given her hemoptysis I will hold this at the current time. Will put in IR consult for IVC filter placement. Again consult pulmonology for further guidance and hematology. #5 hypertension: Continue home medications #6 hyperlipidemia: Continue statin #7 asthma: Continue home inhalers, PRN nebulizers #8 DVT GI prophylaxis: At the current time will hold SCDs given patient's lower extremity DVT, will hold pharmacological contraindication secondary to hemoptysis, resume Protonix Further treatment strategy will be implemented as per the clinical course. Result Diagram: 12/20/18211812/20/182154 Results 24hrs Laboratory Tests Test 12/20/18 21:19 12/20/18 21:20 12/20/18 21:22 12/20/18 21:55 White Blood Count 12.7 #H Red Blood Count 4.40 Hemoglobin 12.9 Hematocrit 39.0 Mean Corpuscular 88.6 Volume Mean Corpuscular 29.3 Hemoglobin Mean Corpuscular 33.1 Hemoglobin Concent Red Cell 13.2 Distribution Width Platelet Count 331 Mean Platelet Volume 9.2 Immature 0.600 H Granulocytes % Neutrophils % 80.0 H Lymphocytes % 12.1 L Monocytes % 6.5 Eosinophils % 0.6 Basophils % 0.2 Nucleated Red Blood 0.0 Cells % Immature 0.070 H Granulocytes # Neutrophils # 10.1 H Lymphocytes # 1.5 Monocytes # 0.8 Eosinophils # 0.1 Basophils # 0.0 Nucleated Red Blood 0.0 Cells # Lactic Acid Level 2.9 *H POC Venous Lactate 2.3 *H Prothrombin Time 16.5 #H Prothrombin Time 1.3 Ratio INR International 1.32 Normalized Ratio Activated 33.5 Partial Thromboplast Time Sodium Level 140 Potassium Level 3.9 Chloride Level 102 Carbon Dioxide Level 26 Anion Gap 12 Blood Urea Nitrogen 11 Creatinine 0.74 Est Glomerular Filtrat Rate mL/min Glucose Level 115 Calcium Level 9.0 Total Bilirubin 0.7 Direct Bilirubin 0.00 Indirect Bilirubin 0.7 Aspartate Amino 68 H Transf (AST/SGOT) Alanine 22 Aminotransferase (AL T/SGPT) Alkaline Phosphatase 233 H Troponin I < 0.012 B-Type Natriuretic 709 H Peptide Total Protein 6.5 Albumin 3.6 Globulin 2.90 Albumin/Globulin 1.24 Ratio HPI/ROS Admit Date/Time Admit Date/Time Dec 20, 2018 at 22:58 Hx of Present Illness Chief complaint: Hemoptysis,back pain and production cough with fredi bloody sputum [id number] This is an 88-year-old female with a history of recently diagnosed right lung mass cancer who presents for evaluation of hemoptysis. Patient denies fever, she was recently admitted for CHF, and at that time she was diagnosed with her malignancy. She has a appointment with the lactation coordinator as well as the bag bailer in the coming weeks.. She is noted to have a DVT on ultrasound, and she is currently being treated with Eliquis. Patient denies shortness of breath. Allergies: Sulfa Medications: See JAN SHASHA Const: As per HPI Eyes : No pain discharge or redness or change in visual acuity ENT: No pain, sore throat, congestion, congestion, dysphagia or discharge Respiratory: As per HPI Cardiovascular: No chest pain, palpitation, PND, or edema GI : no change in appetite, abdominal pain, nausea, vomiting, diarrhea, constipation, or change in the color his stool Genitourinary: No dysuria, hematuria, flank pain , discharge or CVA tenderness Musculoskeletal: No joint pain, back pain, neck pain, restricted range of motion in neck or joints Skin: No rash, bruising or hives Neuro: No headache, dizziness, syncope, seizure, focal weakness Endocrine: No polyuria, polydipsia, temperature intolerance Psych: No hallucination, depression, anxiety or suicidal ideation PMH/Family/Social Past Medical History Asthma, peroneal blood clot, right chest mass hyperlipidemia, hypertension Medications Current Medications IV Flush (NS 3 ml) 3 ml PER PROTOCOL IV ; Start 12/21/18 at 00:00 Ondansetron HCl (Zofran Inj) 4 mg Q6H PRN IV NAUSEA/VOMITING; Start 12/21/18 at 00:00 Acetaminophen (Tylenol Tab) 650 mg Q6H PRN PO .PAIN 1-3 OR TEMP; Start 12/21/18 at 00:00 Docusate Sodium (Colace) 100 mg Q12H PRN PO .CONSTIPATION; Start 12/21/18 at 00:00 Bisacodyl (Dulcolax) 5 mg DAILY PRN PO .CONSTIPATION; Start 12/21/18 at 00:00 Vancomycin HCl (Vanco Iv Per Pharmacy) VANCOMYCIN PER PHARMACY PER PROTOCOL XX ; Start 12/21/18 at 00:00 Cefepime HCl 50 ml @ 100 mls/hr Q12 IVPB ; Start 12/21/18 at 09:00 Vancomycin/Sodium Chloride 250 ml @ 125 mls/hr Q36H IVPB ; Start 12/22/18 at 11:30 Coded Allergies: Sulfa (Sulfonamide Antibiotics) (Unverified Allergy, Severe, RASH, 11/26/18) Past Surgical History Past Surgical Hx: no surgical history Family History Significant Family History: no pertinent family hx Social History Alcohol Use: none Smoking Status: Never smoker Drug Use: none Exam/Review of Systems Vital Signs Vitals Vital Signs Date Temp Pulse Resp B/P (MAP) Pulse Ox O2 O2 Flow FiO2 Time Delivery Rate 12/21/18 108 00:26 12/21/18 Nasal 2.0 00:25 Cannula 12/21/18 98.8 16 126/77 93 00:15 (93) Intake and Output 12/20/18 12/20/18 12/21/18 1515:00 23:00 07:00 IntakeIntake Total 250 ml BalanceBalance 250 ml Exam Exam General: She is currently lying in bed she does not appear to be in acute dis tress HEENT: Atraumatic, normocephalic. The pupils are equal, round and reactive. Extraocular motor are intact Neck: Supple with full range of motion. No rigidity or meningismus Chest: Nontender Lungs: Coarse breath sounds bilaterally Heart: Normal S1-S2, Regular rhythm and rate. Abdomen: Soft , nontender, nondistended , bowel sounds are present. No guarding no rebound tenderness , No masses or organomegaly. No costovertebral temporal angle mass Extremities: Normal to inspection, no edema no cyanosis Neurologic: Normal mental status, speech normal, cranial nerves II through XII are intact, motor and sensory are intact, Additional Comments PROCEDURE: CTA Chest and pulmonary angiogram. CLINICAL INDICATION: Chest pain and shortness of breath. TECHNIQUE: CT scan of the chest and CT pulmonary angiogram was performed on a multidetector high-resolution CT scanner. High-resolution thin slice coronal and sagittal imaging was obtained from the axial source images. 3-D MIP post processing images was performed as well. The patient was examined following the uncomplicated intravenous administration of 100 cc of Omnipaque-300. The images were reviewed on a PACS workstation. The total exam CTDI equals 55.26 and the total exam DLP equals 827.72 mGy-cm. DICOM images are available. DICOM images are available. One or more of the following dose reduction techniques were utilized: 1.) Automated exposure control 2.) Adjustment of the mA +/- kV according to patient's size 3.) Use of iterative reconstruction technique. COMPARISON: CT pulmonary angio 11/28/[address] chest 09/20/2017. FINDINGS: CT chest: Mass-like consolidation in the right middle lobe is again noted. Redemonstrated is significant volume loss of the right upper lobe with scarring and fibrosis. The central tracheobronchial tree is clear. There is minimal right pleural effusion. Mild fibrotic changes are also seen in the lung bases. The central tracheobronchial tree is clear. The mediastinum is unremarkable without evidence for mass or lymphadenopathy. The vascular structures of the mediastinum are normal in course and caliber. The heart size is normal without pericardial thickening or effusion. The axillary, subpectoral, and supraclavicular regions are unremarkable. Imaging obtained through the upper abdomen is remarkable for multiple ill- defined liver lesions in both hepatic lobes measures up to 2 cm in the right anterior hepatic lobe concerning for metastasis. There is a new 2 cm left adrenal lesion. The surrounding chest wall is unremarkable. There are multiple new sclerotic and lytic lesions including a sclerotic lesion in the right aspect of the T3, lytic lesion in the left lateral eighth rib, lytic lesion in the right aspect of the T8 vertebral body. Anterior right fourth and lateral right fifth healing rib fractures are noted. CT pulmonary angiogram: There is no acute major pulmonary emboli. Redemonstrated are multiple linear f illing defects in the distal segmental and subsegmental branches of the pulmonary arteries particularly in the left upper lobe concerning for chronic pulmonary emboli. The pulmonary arteries are enlarged. IMPRESSION: 1. No acute central pulmonary emboli. Multiple linear filling defects/synechia identified in the distal segmental/subsegmental branches particularly in the left upper lobe concerning for subacute/chronic pulmonary emboli. The findings are not significantly changed compared to most recent CT pulmonary angio dated 11/28/2018. Current study is technically a better study for the evaluation of pulmonary vasculature. 2. No substantial change in mass-like consolidation in the right middle lobe concerning for pulmonary malignancy. 3. Several sclerotic and lytic lesions in the thoracic spine and rib cage concerning for osseous metastasis. The findings are new since CT dated . 4. Approximately 2 cm left adrenal nodule concerning for metastasis. Multiple focal liver lesions concerning for diffuse liver metastasis. The findings are also new compared to CT dated 09/20/2017. 5. Unchanged volume loss of the right upper lobe with fibrotic changes and scarring. 6. Bibasilar fibrotic changes and scarring. 7. Minimal right pleural effusion. 8. Cardiomegaly. RPTAT: [facility] .Simon Roe MD, Date Time Electronically viewed and signed by .Simon Roe MD, on 12/21/2018 00:29 .O/ CC: JANIA MARI MD [id number] PROCEDURE: DX Chest 1 View CLINICAL INDICATION: Short of breath. TECHNIQUE: AP Portable chest. COMPARISON: 12/02/2016. FINDINGS: Normal cardiac and mediastinal configuration. Aortic calcified plaque present. Prominent passing the in the right hilum, extending to the right infrahilar region, tubular shaped and likely representing a large pulmonary vessel. Chronic scarring right upper lobe. Patchy decreased aeration at both lung bases due to subsegmental enthesis/fibrosis. IMPRESSION: 1. Patchy bibasilar subsegmental atelectasis/fibrosis. 2. Chronic fibrolinear scarring right upper lobe, present on the 2017 exam. 3. Enlarged right hilar and infrahilar pulmonary vessel, more prominent than on the 2017 exam. RPTAT: [facility] Physician Gisela Date Time Electronically viewed and signed by Jaguar Mccrary Physician on 12/20/2018 22:25 RS/ CC: JANIA MARI MD [id number] PROCEDURE: US DVT. CLINICAL INDICATION: Bilateral lower extremity pain and swelling. TECHNIQUE: Multiple longitudinal and transverse images of the bilateral lower extremity veins were obtained with monroy scale and color Doppler imaging. 2D grayscale measurements with compression, color Doppler flow, and augmentation was performed. The calf veins were interrogated as well. COMPARISON: No prior studies are available for comparison. FINDINGS: The bilateral common femoral, superficial femoral and popliteal veins are normally compressible throughout. Color flow demonstrates normal filling of the vessel. Normal waveforms are visualized and there is normal response to augmentation. There is occlusive thrombus in the right peroneal vein. The remainder of the bilateral [id number] veins are patent. IMPRESSION: 1. Occlusive thrombus in the right peroneal vein. The remainder of the deep venous system is patent. RPTAT: [facility] .Simon Roe MD, MD Date Time Electronically viewed and signed by .Simon Roe MD, MD on 12/21/2018 00:32 .O/ CC: JANIA MARI MD [id number] AMILCAR BASS Dec 21, 2018 02:20
--- NOTE | 2018-12-21 08:49 | NUR ---
VANCOMYCIN PER PHARMACY NOTE VANCOMYCIN 1 GRAM WAS GIVEN IN ER. VANCOMYCIN 750MG IV Q36 HOURS WAS INITIATED. CHECK VANC TR PRIOR TO 4TH DOSE. PHARMACY WILL FOLLOW. THANK YOU.
[2018-12-21] MEDS ORDERED: METOPROLOL 25 MG TAB PO SCH (09:00)
[2018-12-21] MEDS ORDERED: FOLIC ACID 0.4 MG TAB PO SCH (09:00)
[2018-12-21] MEDS ORDERED: AMLODIPINE 10 MG TAB PO SCH (09:00)
[2018-12-21] MEDS ORDERED: CEFEPIME 1GM/50 ML (PMX) 50 ML IVPB SCH (09:00)
[2018-12-21] MEDS ORDERED: CHOLECALCIFEROL 1,000 UNIT TAB PO SCH (09:00)
[2018-12-21] MEDS ORDERED: ALBUTEROL HFA 8 GM INHALER INH PRN (09:00)
--- NOTE | 2018-12-21 09:38 | NUR ---
NURSES NOTES: CALLED PHARMACY SPOKE WITH ASIF TO VERIFY 0900 SCHEDULED MEDICATIONS.AWAITING FOR MEDS TO BE VERIFIED AT THIS TIME. WILL CONTINUE TO MONITOR AND ASSESS PT THROUGHOUT THE SHIFT
[2018-12-21] MEDS ORDERED: PANTOPRAZOLE SODIUM 20 MG TABEC PO SCH (10:00)
--- NOTE | 2018-12-21 10:05 | NUR ---
CALLED [employer] [facility] AND EXPLAINED PER DR JOSE THIS IS A DINKEY OPERATOR PROCEDURE. THEY WILL NEED TO CALL TEAM IN TODAY IF NEEDED.
[2018-12-21] MEDS ORDERED: FLUTICASONE/VILANTEROL 100-25 INH SCH (11:00)
--- NOTE | 2018-12-21 11:25 | CONS ---
Assessment/Plan Assessment/Plan Assessment/Plan (Daily) Assessment recommendations; 1 patient admitted with hemoptysis likely from chronic anticoagulations use. 2. Right upper lobe lung mass, which is highly suggestive of bronchogenic carcinoma. Biopsy could not be attempted because of location. Pleural fluid cytology from last admission was negative for malignancy. 3. History of PE. I did have a very detailed discussion with the patient's daughter at bedside, apprised her of the futile nature of pursuing a diagnosis regarding lung mass. The patient's overall condition would not permit any kind of treatment either chemotherapy or radiation if the lesion turns out to be malignant. The family is in full agreement with not pursuing a further diagnostic approach. However the patient wishes to travel to [facility] to spend the rest of her life over there. In order to assess for travel, I would order an ABG on room air to evaluate for any in-flight oxygen requirements. Meanwhile I would recommend holding off on any further anti-Coagulation and resuming half the dose in about a week's time to permit travel to [facility]. The patient would be at high risk in-flight DVT development. Consultation Date/Type/Reason Admit Date/Time Dec 20, 2018 at 22:58 Date of Consultation: Dec 21, 2018 Type of Consult Pulmonary Patient is an 88-year-old female who was admitted because of hemoptysis. Patient denies any shortness of breath, wheezing, chest pain. Past medical history; 1. Recently diagnosed with a right upper lobe lung mass which likely is malignant until proven otherwise. Biopsy could not be done because of close proximity to great vessels of the chest. 2. History of PE Medications; reviewed. Allergies; sulfa drugs. Social history; no history of any smoking. Family history; she is , has a very supportive family. 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 Review of system; denies any headache, seizures. Denies any shortness of breath, wheezing. Hemoptysis has subsided. Denies any abdominal pain, nausea vomiting. Patient is mostly bedridden at home. General exam; elderly female, awake alert, currently in no distress. Date/Time of Note DATE: 12/21/18 TIME: 11:19 Past Medical History Home Meds Active Scripts Apixaban* (Eliquis*) 5 Mg Tablet, 5 MG PO BID, #60 TAB Prov:ALEX SIMONS MD 12/02/18 Metoprolol Tartrate* (Lopressor*) 25 Mg Tab, 12.5 MG PO BID, #60 TAB Prov:ALEX SIMONS MD 12/02/18 Atorvastatin* (Atorvastatin*) 40 Mg Tablet, 40 MG PO HS, #30 TAB Prov:ALEX SIMONS MD 12/02/18 Amlodipine Besylate* (Amlodipine Besylate*) 10 Mg Tablet, 10 MG PO DAILY, #30 TAB Prov:ALEX SIMONS MD 12/02/18 Reported Medications Pantoprazole* (Pantoprazole*) 20 Mg Tablet.dr, 20 MG PO NEEDED, TAB 11/26/18 Hydrocodone/Acetaminophen ([place] 5-325 Tablet) 1 Each Tablet, 1 EACH PO Q12H, TAB 11/26/18 Acetaminophen* (Tylenol*) 500 Mg Tab, 500 MG PO NEEDED PRN for MILD PAIN LEVEL 1-3, TAB 11/26/18 Zinc (Zinc Chelate) 50 Mg Tablet, 50 MG PO DAILY, TAB 11/26/18 Cholecalciferol* (Vitamin D3*) 1,000 Unit Tablet, 1000 UNIT PO DAILY, TAB 11/26/18 Folic Acid* (Folic Acid*) 0.8 Mg Tablet, 0.8 MG PO DAILY, TAB 11/26/18 Salmeterol Xinaf/Fluticasone* (Advair*) 250-50 Diskus Inhaler, 1 INH INHALATION BID, #1 INHALER 11/26/18 Aspirin* (Aspirin* Chew) 81 Mg Tab.chew, 81 MG PO DAILY, TAB.CHEW 11/26/18 Albuterol Sulfate (Proair Respiclick) 90 Mcg Aer.pow.ba, 2 PUFF INHALATION Q4 PRN for SHORTNESS OF BREATH, #1 BOTTLE 11/26/18 Medications Current Medications IV Flush (NS 3 ml) 3 ml PER PROTOCOL IV ; Start 12/21/18 at 00:00 Ondansetron HCl (Zofran Inj) 4 mg Q6H PRN IV NAUSEA/VOMITING; Start 12/21/18 at 00:00 Acetaminophen (Tylenol Tab) 650 mg Q6H PRN PO .PAIN 1-3 OR TEMP; Start 12/21/18 at 00:00 Docusate Sodium (Colace) 100 mg Q12H PRN PO .CONSTIPATION; Start 12/21/18 at 00:00 Bisacodyl (Dulcolax) 5 mg DAILY PRN PO .CONSTIPATION; Start 12/21/18 at 00:00 Vancomycin HCl (Vanco Iv Per Pharmacy) VANCOMYCIN PER PHARMACY PER PROTOCOL XX ; Start 12/21/18 at 00:00 Cefepime HCl 50 ml @ 100 mls/hr Q12 IVPB Last administered on 12/21/18at 08:35; Admin Dose 100 MLS/HR; Start 12/21/18 at 09:00 Vancomycin/Sodium Chloride 250 ml @ 125 mls/hr Q36H IVPB ; Start 12/22/18 at 11:30 Amlodipine Besylate (Norvasc) 10 mg DAILY PO Last administered on 12/21/18at 10:26; Admin Dose 10 MG; Start 12/21/18 at 09:00 Atorvastatin Calcium (Lipitor) 40 mg HS PO ; Start 12/21/18 at 21:00 Metoprolol Tartrate (Lopressor) 12.5 mg BID PO Last administered on 12/21/18at 10:27; Admin Dose 12.5 MG; Start 12/21/18 at 09:00 Albuterol (Ventolin Hfa) 2 puff Q4H RESP THERAPY PRN INH SHORTNESS OF BREATH; Start 12/21/18 at 09:00 Fluticasone/ Vilanterol (Breo Ellipta 100-25 Mcg Inh) 1 inh DAILY INH ; Start 12/21/18 at 11:00 Cholecalciferol (Vitamin D) 1,000 unit DAILY PO Last administered on 12/21/18at 10:26; Admin Dose 1,000 UNIT; Start 12/21/18 at 09:00 Folic Acid (Folic Acid) 0.8 mg DAILY PO Last administered on 12/21/18at 10:26; Admin Dose 0.8 MG; Start 12/21/18 at 09:00 Pantoprazole Sodium (Protonix) 20 mg DAILY@0600 PO ; Start 12/21/18 at 10:00 Allergies: Coded Allergies: Sulfa (Sulfonamide Antibiotics) (Unverified Allergy, Severe, RASH, 11/26/18) Past Surgical History Past Surgical Hx: no surgical history Social History Alcohol Use: none Smoking Status: Never smoker Drug Use: none Exam/Review of Systems Exam Vitals Vital Signs Date Temp Pulse Resp B/P (MAP) Pulse Ox O2 O2 Flow FiO2 Time Delivery Rate 1/27/19 114 08:01 12/21/18 Nasal 2.0 07:47 Cannula 12/21/18 98.5 20 120/70 100 07:22 (87) Intake and Output 12/20/18 12/20/18 12/21/18 1515:00 23:00 07:00 IntakeIntake Total 250 ml BalanceBalance 250 ml Exam HEENT exam; supple neck, no JVD. No lymphadenopathy. Midline trachea. No thyromegaly. Patient is edentulous and wears dentures. No neck masses. Chest exam; diminished but clear breath sounds. S1-S2 audible, no murmurs. Regular rhythm. Abdomen exam; soft, nontender. No organomegaly. Bowel sounds audible. Extremity exam; no peripheral edema. Patient has a patchy ecchymosis. 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 Results Result Diagram: 12/21/18 0536 12/21/18 0536 Results 24hrs Laboratory Tests Test 12/20/18 21:19 12/20/18 21:20 12/20/18 21:22 12/20/18 21:55 White Blood Count 12.7 #H Red Blood Count 4.40 Hemoglobin 12.9 Hematocrit 39.0 Mean Corpuscular 88.6 Volume Mean Corpuscular 29.3 Hemoglobin Mean Corpuscular 33.1 Hemoglobin Concent Red Cell 13.2 Distribution Width Platelet Count 331 Mean Platelet Volume 9.2 Immature 0.600 H Granulocytes % Neutrophils % 80.0 H Lymphocytes % 12.1 L Monocytes % 6.5 Eosinophils % 0.6 Basophils % 0.2 Nucleated Red Blood 0.0 Cells % Immature 0.070 H Granulocytes # Neutrophils # 10.1 H Lymphocytes # 1.5 Monocytes # 0.8 Eosinophils # 0.1 Basophils # 0.0 Nucleated Red Blood 0.0 Cells # Lactic Acid Level 2.9 *H POC Venous Lactate 2.3 *H Prothrombin Time 16.5 #H Prothrombin Time 1.3 Ratio INR International 1.32 Normalized Ratio Activated 33.5 Partial Thromboplast Time Sodium Level 140 Potassium Level 3.9 Chloride Level 102 Carbon Dioxide Level 26 Anion Gap 12 Blood Urea Nitrogen 11 Creatinine 0.74 Est Glomerular Filtrat Rate mL/min Glucose Level 115 Calcium Level 9.0 Total Bilirubin 0.7 Direct Bilirubin 0.00 Indirect Bilirubin 0.7 Aspartate Amino 68 H Transf (AST/SGOT) Alanine 22 Aminotransferase (AL T/SGPT) Alkaline Phosphatase 233 H Troponin I < 0.012 B-Type Natriuretic 709 H Peptide Total Protein 6.5 Albumin 3.6 Globulin 2.90 Albumin/Globulin 1.24 Ratio Test 12/21/18 05:36 White Blood Count 10.6 Red Blood Count 4.18 L Hemoglobin 12.4 Hematocrit 37.3 Mean Corpuscular 89.2 Volume Mean Corpuscular 29.7 Hemoglobin Mean Corpuscular 33.2 Hemoglobin Concent Red Cell 13.4 Distribution Width Platelet Count 301 Mean Platelet Volume 9.1 Immature 0.700 H Granulocytes % Neutrophils % 82.1 H Lymphocytes % 10.2 L Monocytes % 5.7 Eosinophils % 1.0 Basophils % 0.3 Nucleated Red Blood 0.0 Cells % Immature 0.070 H Granulocytes # Neutrophils # 8.7 H Lymphocytes # 1.1 Monocytes # 0.6 Eosinophils # 0.1 Basophils # 0.0 Nucleated Red Blood 0.0 Cells # Prothrombin Time 15.4 H Prothrombin Time 1.2 Ratio INR International 1.21 Normalized Ratio Activated 31.7 Partial Thromboplast Time Sodium Level 142 Potassium Level 3.4 L Chloride Level 102 Carbon Dioxide Level 29 Anion Gap 11 Blood Urea Nitrogen 8 Creatinine 0.59 Est Glomerular Filtrat Rate mL/min Glucose Level 93 Calcium Level 8.2 L Magnesium Level 2.1 Total Bilirubin 0.8 Direct Bilirubin 0.00 Indirect Bilirubin 0.8 Aspartate Amino 55 H Transf (AST/SGOT) Alanine 25 Aminotransferase (AL T/SGPT) Alkaline Phosphatase 179 H Total Protein 5.9 L Albumin 3.1 L Globulin 2.80 Albumin/Globulin 1.10 Ratio Medications Medication Current Medications IV Flush (NS 3 ml) 3 ml PER PROTOCOL IV ; Start 12/21/18 at 00:00 Ondansetron HCl (Zofran Inj) 4 mg Q6H PRN IV NAUSEA/VOMITING; Start 12/21/18 at 00:00 Acetaminophen (Tylenol Tab) 650 mg Q6H PRN PO .PAIN 1-3 OR TEMP; Start 12/21/18 at 00:00 Docusate Sodium (Colace) 100 mg Q12H PRN PO .CONSTIPATION; Start 12/21/18 at 00:00 Bisacodyl (Dulcolax) 5 mg DAILY PRN PO .CONSTIPATION; Start 12/21/18 at 00:00 Vancomycin HCl (Vanco Iv Per Pharmacy) VANCOMYCIN PER PHARMACY PER PROTOCOL XX ; Start 12/21/18 at 00:00 Cefepime HCl 50 ml @ 100 mls/hr Q12 IVPB Last administered on 12/21/18at 08:35; Admin Dose 100 MLS/HR; Start 12/21/18 at 09:00 Vancomycin/Sodium Chloride 250 ml @ 125 mls/hr Q36H IVPB ; Start 12/22/18 at 11:30 Amlodipine Besylate (Norvasc) 10 mg DAILY PO Last administered on 12/21/18 10:26; Admin Dose 10 MG; Start 12/21/18 at 09:00 Atorvastatin Calcium (Lipitor) 40 mg HS PO ; Start 12/21/18 at 21:00 Metoprolol Tartrate (Lopressor) 12.5 mg BID PO Last administered on 12/21/18 10:27; Admin Dose 12.5 MG; Start 12/21/18 at 09:00 Albuterol (Ventolin Hfa) 2 puff Q4H RESP THERAPY PRN INH SHORTNESS OF BREATH; Start 12/21/18 at 09:00 Fluticasone/ Vilanterol (Breo Ellipta 100-25 Mcg Inh) 1 inh DAILY INH ; Start 12/21/18 at 11:00 Cholecalciferol (Vitamin D) 1,000 unit DAILY PO Last administered on 12/21/18 10:26; Admin Dose 1,000 UNIT; Start 12/21/18 at 09:00 Folic Acid (Folic Acid) 0.8 mg DAILY PO Last administered on 12/21/18 10:26; Admin Dose 0.8 MG; Start 12/21/18 at 09:00 Pantoprazole Sodium (Protonix) 20 mg DAILY@0600 PO ; Start 12/21/18 at 10:00 CHANDAN HECTOR Dec 21, 2018 11:25
[2018-12-21] MEDS ORDERED: GUAIFENESIN 20 MG/ML 5ML CUP PO PRN (12:00)
[2018-12-21] MEDS ORDERED: HYDROmorphONE 2 MG TAB PO PRN (12:00)
--- NOTE | 2018-12-21 14:52 | PDOCDIS ---
Discharge Instructions DIAGNOSIS Discharge Diagnosis Lung adenocarcinoma CONDITION [id number] Patient Condition: [id number] Fair HOME CARE INSTRUCTIONS: [id number] Diet Instructions: [id number] Regular ACTIVITY: [id number] Activity Restrictions: [id number] No Restrictions FOLLOW UP/APPOINTMENTS Follow-up Plan 1. Stop taking Eliquis and aspirin, they will increase your risk of bleed. 2. Take all other medication as prescribed. 3. You are medically clear to fly internationally. ALEX SIMONS MD Dec 21, 2018 14:52
--- NOTE | 2018-12-21 16:30 | NUR ---
DISCHARGE NOTE: PT WITH ORDERS TO D/C TO HOME BY DR. SIMONS. DENIES PAIN OR DISCOMFORT AT THIS TIME. NO S/S OF RESPIRATORY DISTRESS PT ON ROOM AIR. PT CLEAN AND DRY. PRESCRIPTIONS AND DISCHARGE GIVEN TO PATIENT AND CAREGIVER, DAUGHTER MEGHA AT THIS TIME. PATIENT AND DAUGHTER BOTH VERBALIZED UNDERSTANDING. NOTE FROM FOR FLYING ON AIRPLANE CLEARANCE GIVEN. PT WITH ALL PERSONAL BELONGINGS. FAMILY AT BEDSIDE. VOLUNTEER TO ESCORT PT VIA WHEELCHAIR TO [facility].
--- NOTE | 2018-12-21 16:47 | DS ---
Date/Time of Note Date/Time of Note DATE: 12/21/18 TIME: 16:43 Discharge Summary Admission/Discharge Info Admit Date/Time Dec 20, 2018 at 22:58 Discharge Date/Time Dec 21, 2018 at 16:35 Discharge Diagnosis Lung adenocarcinoma Patient Condition: Fair Consults Dr. Steven, pulmonary Hx of Present Illness Chief complaint: Hemoptysis,back pain and production cough with fredi bloody sputum [id number] This is an 88-year-old woman with a history of recently diagnosed right lung mass cancer who presents for evaluation of hemoptysis. Patient denies fever, she was recently admitted for CHF, and at that time she was diagnosed with her malignancy. She has a appointment with the environmental laboratory technician as well as the hematol ogist in the coming weeks.. She is noted to have a DVT on ultrasound, and she is currently being treated with Eliquis. Patient denies shortness of breath. Allergies: Sulfa Medications: See MAR Hospital Course She had an emesis bag with small bits of bloody sputum; no large volume hemoptysis. We will stop her Eliquis and aspirin. She does still have an isol ated R peroneal vein DVT but clots below the knee are much less likely to embolize. She was able to ambulate 50 feet off oxygen without desaturating or developing dyspnea. The patient and her daughter are aware of the diagnosis of lung cancer and do not want to pursue chemotherapy, radiation, or other disease- directed therapy. The patient wants to fly back to the [facility] one last time. Home Meds Active Scripts Metoprolol Tartrate* (Lopressor*) 25 Mg Tab, 12.5 MG PO BID, #60 TAB Prov:ALEX SIMONS MD 12/02/18 Atorvastatin* (Atorvastatin*) 40 Mg Tablet, 40 MG PO HS, #30 TAB Prov:ALEX SMIONS MD 12/02/18 Amlodipine Besylate* (Amlodipine Besylate*) 10 Mg Tablet, 10 MG PO DAILY, #30 TAB Prov:ALEX SIMONS MD 12/02/18 Reported Medications Pantoprazole* (Pantoprazole*) 20 Mg Tablet.dr, 20 MG PO NEEDED, TAB 11/26/18 Hydrocodone/Acetaminophen ([place] 5-325 Tablet) 1 Each Tablet, 1 EACH PO Q12H, TAB 11/26/18 Acetaminophen* (Tylenol*) 500 Mg Tab, 500 MG PO NEEDED PRN for MILD PAIN LEVEL 1-3, TAB 11/26/18 Zinc (Zinc Chelate) 50 Mg Tablet, 50 MG PO DAILY, TAB 11/26/18 Cholecalciferol* (Vitamin D3*) 1,000 Unit Tablet, 1000 UNIT PO DAILY, TAB 11/26/18 Folic Acid* (Folic Acid*) 0.8 Mg Tablet, 0.8 MG PO DAILY, TAB 11/26/18 Salmeterol Xinaf/Fluticasone* (Advair*) 250-50 Diskus Inhaler, 1 INH INHALATION BID, #1 INHALER 11/26/18 Albuterol Sulfate (Proair Respiclick) 90 Mcg Aer.pow.ba, 2 PUFF INHALATION Q4 PRN for SHORTNESS OF BREATH, #1 BOTTLE 11/26/18 Discontinued Reported Medications Aspirin* (Aspirin* Chew) 81 Mg Tab.chew, 81 MG PO DAILY, TAB.CHEW 11/26/18 Discontinued Scripts Apixaban* (Eliquis*) 5 Mg Tablet, 5 MG PO BID, #60 TAB Prov:ALEX SIMONS MD 12/02/18 Follow-up Plan 1. Stop taking Eliquis and aspirin, they will increase your risk of bleed. 2. Take all other medication as prescribed. 3. You are medically clear to fly internationally. Primary Care Provider [facility] Time spent on discharge: > 30 minutes Pending Labs Laboratory Tests Test 12/20/18 21:19 12/20/18 21:20 12/20/18 21:22 12/20/18 21:55 White Blood 12.7 Count 10^3/ul (4.8-10 .8) Red Blood 4.40 Count 10^6/ul (4.20-5 .40) Hemoglobin 12.9 g/dl (12.0-16.0 ) Hematocrit 39.0 % (37.0-47.0) Mean 88.6 Corpuscular fl (82.0-101.0) Volume Mean 29.3 Corpuscular pg (29.0-33.0) Hemoglobin Mean 33.1 Corpuscular g/dl (32.0-37.0 Hemoglobin Conc ) ent Red Cell 13.2 Distribution % (11.5-14.5) Width Platelet Count 331 10^3/UL (140-41 5) Mean Platelet 9.2 Volume fl (7.4-10.4) Immature 0.600 Granulocytes % % (0.001-0.429) Neutrophils % 80.0 % (39.0-77.0) Lymphocytes % 12.1 % (15.0-51.0) Monocytes % 6.5 % (0.0-11.0) Eosinophils % 0.6 % (0.0-7.0) Basophils % 0.2 % (0.0-2.0) Nucleated Red 0.0 Blood Cells % /100WBC (0.0-0. 0) Immature 0.070 Granulocytes # 10^3/ul (0.0-0. 031) Neutrophils # 10.1 10^3/ul (1.6-7. 5) Lymphocytes # 1.5 10^3/ul (0.8-2. 9) Monocytes # 0.8 10^3/ul (0.3-0. 9) Eosinophils # 0.1 10^3/ul (0.0-0. 5) Basophils # 0.0 10^3/ul (0.0-0. 1) Nucleated Red 0.0 Blood Cells # 10^3/ul (0.0-0. 0) Lactic Acid 2.9 Level mmol/L (0.5-2. 0) POC Venous 2.3 Lactate mmol/L (0.5-2. 0) Prothrombin 16.5 Time Sec (11.9-14.9 ) Prothrombin 1.3 Time Ratio INR 1.32 International Normalized Rati o Activated 33.5 Partial Thrombo Sec (23.0-35.0 plast Time ) Sodium Level 140 mmol/L (135-14 4) Potassium 3.9 Level mmol/L (3.5-5. 1) Chloride Level 102 mmol/L (97-110 ) Carbon Dioxide 26 Level mmol/L (21-31) Anion Gap 12 (5-13) Blood Urea 11 Nitrogen mg/dl (7-20) Creatinine 0.74 mg/dl (0.44-1. 00) Est Glomerular mL/min (>60) Filtrat Rate mL/min Glucose Level 115 mg/dl (70-220) Calcium Level 9.0 mg/dl (8.4-10. 2) Total 0.7 Bilirubin mg/dl (0.2-1.3 ) Direct 0.00 Bilirubin mg/dl (0.00-0. 20) Indirect 0.7 Bilirubin mg/dl (0-1.1) Aspartate Amino 68 Transf (AST/SGO IU/L (15-46) T) Alanine 22 Aminotransferas IU/L (13-69) e (ALT/SGPT) Alkaline 233 Phosphatase IU/L (42-121) Troponin I < 0.012 ng/ml (0.000-0 .120) B-Type 709 Natriuretic PG/ML (0-450) Peptide Total Protein 6.5 g/dl (6.1-8.1) Albumin 3.6 g/dl (3.3-4.9) Globulin 2.90 g/dl (1.3-3.2) Albumin/Globuli 1.24 n Ratio Test 12/21/18 05:36 12/21/18 11:14 White Blood 10.6 Count 10^3/ul (4.8-10 .8) Red Blood 4.18 Count 10^6/ul (4.20-5 .40) Hemoglobin 12.4 g/dl (12.0-16.0 ) Hematocrit 37.3 % (37.0-47.0) Mean 89.2 Corpuscular fl (82.0-101.0) Volume Mean 29.7 Corpuscular pg (29.0-33.0) Hemoglobin Mean 33.2 Corpuscular g/dl (32.0-37.0 Hemoglobin Conc ) ent Red Cell 13.4 Distribution % (11.5-14.5) Width Platelet Count 301 10^3/UL (140-41 5) Mean Platelet 9.1 Volume fl (7.4-10.4) Immature 0.700 Granulocytes % % (0.001-0.429) Neutrophils % 82.1 % (39.0-77.0) Lymphocytes % 10.2 % (15.0-51.0) Monocytes % 5.7 % (0.0-11.0) Eosinophils % 1.0 % (0.0-7.0) Basophils % 0.3 % (0.0-2.0) Nucleated Red 0.0 Blood Cells % /100WBC (0.0-0. 0) Immature 0.070 Granulocytes # 10^3/ul (0.0-0. 031) Neutrophils # 8.7 10^3/ul (1.6-7. 5) Lymphocytes # 1.1 10^3/ul (0.8-2. 9) Monocytes # 0.6 10^3/ul (0.3-0. 9) Eosinophils # 0.1 10^3/ul (0.0-0. 5) Basophils # 0.0 10^3/ul (0.0-0. 1) Nucleated Red 0.0 Blood Cells # 10^3/ul (0.0-0. 0) Prothrombin 15.4 Time Sec (11.9-14.9) Prothrombin 1.2 Time Ratio INR 1.21 International Normalized Rati o Activated 31.7 Partial Thrombo Sec (23.0-35.0) plast Time Sodium Level 142 mmol/L (135-144 ) Potassium 3.4 Level mmol/L (3.5-5.1 ) Chloride Level 102 mmol/L (97-110) Carbon Dioxide 29 Level mmol/L (21-31) Anion Gap 11 (5-13) Blood Urea 8 mg/dl (7-20) Nitrogen Creatinine 0.59 mg/dl (0.44-1.0 0) Est Glomerular mL/min (>60) Filtrat Rate mL/min Glucose Level 93 mg/dl (70-220) Calcium Level 8.2 mg/dl (8.4-10.2 ) Magnesium 2.1 Level mg/dl (1.7-2.5) Total 0.8 Bilirubin mg/dl (0.2-1.3) Direct 0.00 Bilirubin mg/dl (0.00-0.2 0) Indirect 0.8 Bilirubin mg/dl (0-1.1) Aspartate Amino 55 IU/L (15-46) Transf (AST/SGO T) Alanine 25 IU/L (13-69) Aminotransferas e (ALT/SGPT) Alkaline 179 Phosphatase IU/L (42-121) Total Protein 5.9 g/dl (6.1-8.1) Albumin 3.1 g/dl (3.3-4.9) Globulin 2.80 g/dl (1.3-3.2) Albumin/Globuli 1.10 n Ratio Blood Gas Blood arterial Specimen Source Arterial Blood 12/21/2018 1:10 Date Drawn :00 PM Arterial Blood 7.459 (7.350-7 pH .450) (Temp corrected ) Arterial Blood 36.3 pCO2 mmhg (35-45) (Temp correct) Arterial Blood 60.6 pO2 mmHG (80-90.0) (Temp corrected ) Arterial Blood 25.2 HCO3 mmol/L (22.0-2 6.0) Arterial Blood 1.7 Base Excess mmol/L (-3.0-3 ) Nader Test ACCEPTAB Arterial Blood Left Radial Gas Puncture Site Blood Gas A-a 45.7 O2 mmHg (7.0-24.0 Differential ) Blood Gas 37.0 C Temperature Blood Gas ROOM AIR Modality FiO2 21.0 % Blood Gas Notified Whom Blood Gas 12/21/2018 1:50 Notified Time :00 PM Microbiology Date/Time Source Procedure Growth Status 12/20/18 21:19 Nasopharyngeal Influenza Types A,B Direct EIA - Final Complete ALEX SIMONS MD Dec 21, 2018 16:47
[2018-12-21] MEDS ORDERED: ATORVASTATIN 40 MG TAB PO SCH (21:00)
[2018-12-22] MEDS ORDERED: VANCOMYCIN 750 MG (PMX) 250 ML IVPB SCH (11:30)
== END 2018-12-21 16:35 | disposition home or self-care (01) | DRG 181 ==
LOC: E/R 19:55 → 6WM 22:58 → CANRESERV 23:27
PROVIDERS: ADMIT Family Medicine; ATTEND Internal Medicine
DX: C34.91 Malignant neoplasm of unspecified part of right bronchus or lung (principal); I82.491 Acute embolism and thrombosis of other specified deep vein of right lower extremity; I10 Essential (primary) hypertension; E78.5 Hyperlipidemia, unspecified; J45.909 Unspecified asthma, uncomplicated; Z79.01 Long term (current) use of anticoagulants; Z79.82 Long term (current) use of aspirin; Z86.711 Personal history of pulmonary embolism
CPT/HCPCS: 36415; 36600; 71045; 71275; 80053; 82803; 83605; 83735; 83880; 84484; 85025; 85610; 85730; 87040; 87400; 93005; 93970; 96374; J0692; J3370; Q9967